=== PATIENT | male | born 1935 | race Caucasian/White ===

== ENCOUNTER 2023-05-16 09:55 | Inpatient (IN) ==
--- NOTE | 2023-05-16 10:51 | XRay Report ---
XR chest 1V portable CLINICAL HISTORY: weakness COMPARISON STUDY: PET/CT August 12, 2021. FINDINGS: Mild elevation of the right hemidiaphragm is unchanged. Upper mediastinal widening is also similar to prior PET/CT and likely due to vessels. There is mild cardiomegaly without evidence for pu lmonary edema. No consolidation is present. There is no pneumothorax or pleural effusion. IMPRESSION: No acute cardiopulmonary findings. ACT 112: Negative or not required by law. Electronically signed by: Elder Cardona M.D. 05/16/2023 10:49 AM
[2023-05-16 11:07] LABS: Basophils # (auto) 0.03 K/uL (0.00-0.20); Basophils % (auto) 0.2 %; Eosinophils # (auto) 0.03 K/uL (0.00-0.50); Eosinophils % (auto) 0.2 %; Hematocrit (blood only) 36.4 % (42.0-52.0); Hemoglobin 12.4 g/dl (14.0-18.0); Immature Granulocytes # (auto) 0.11 K/uL (0.01-0.20); Immature Granulocytes % (auto) 0.8 %; Lymphocytes % (auto) 5.8 %; Mean Corpuscular Hemoglobin 30.1 pg (25.0-34.0); Mean Corpuscular Hgb Conc 34.1 g/dL (32.0-36.0); Mean Corpuscular Volume 88.3 fL (80.0-100.0); Mean Platelet Volume 10.2 fL (9.4-12.4); Monocytes # (auto) 0.78 K/uL (0.11-0.59); Monocytes % (auto) 5.7 %; Neutrophils # (auto) 12.04 K/uL (1.40-6.50); Neutrophils % (auto) 87.3 %; Platelet Count 137 K/uL (130-400); RDW Coefficient of Variation 13.8 % (11.5-14.5); RDW Standard Deviation 44.6 fL (36.4-46.3); Red Blood Count 4.12 M/uL (4.70-6.10); White Blood Count 13.79 K/ul (4.8-10.8)
[2023-05-16 11:14] LABS: Albumin Globulin Ratio 1.4 (0.9-2); Albumin Level 3.8 gm/dl (3.4-5.0); BUN Creatinine Ratio 19.2 (10-20); Bilirubin,Total 0.8 mg/dl (0.2-1.0); Calcium 10.9 mg/dl (8.6-10.3); Creatinine Clr Calc Pharmacy 36.1 ml/min; Est GFR (African American) 45.9 ml/min; Est GFR (Non-African American) 39.6 ml/min; Globulin 2.8 gm/dl (2.5-4.0); Magnesium 1.6 mg/dl (1.7-2.4); Potassium 4.3 mmol/L (3.5-5.1); Total Protein 6.6 gm/dl (6.0-8.3)
[2023-05-16 11:20] LABS: Troponin I High Sensitivity 22.8 pg/ml (0-20)
--- NOTE | 2023-05-16 11:24 | Emergency Department Note ---
Impression & Plan Acute UTI (urinary tract infection), Leukocytosis, Elevated procalcitonin, Elevated troponin, Hypomagnesemia, Generalized weakness ED Provider Note HISTORY OF PRESENT ILLNESS: Patient is an 87-year-old male presenting with dizziness and weakness. Patient reports that 3 days ago he had an episode of dizziness in which he felt like he was going to pass out when he stood up. He had a few episodes of vomiting. Yesterday he was feeling improved, but today he woke up again and felt dizzy and lightheaded like he was going to pass out when he stood up from his bed. He denies any chest pain or shortness of breath with the episodes. He reports feeling generally weak. Denies any abdominal pain. Denies any fevers. Denies any dysuria or hematuria. On my assessment in the ER, he reports he feels normal self and is not currently having any symptoms. Denies any recent falls or head injury. ROS: as above PHYSICAL EXAM: Constitutional: Patient appears in no acute distress. HENT: Head: Normocephalic and atraumatic. Eyes: EOMI, PERRL Mouth/Throat: Mucous membranes moist. Neck: Trachea midline. Neck supple. Cardiovascular: RRR, No murmurs, rubs or gallops. Intact distal pulses. Pulmonary/Chest: No respiratory distress. Breath sounds clear and equal bilaterally. No wheezes or rales. Abdominal: Abdomen soft, no tenderness, rebound or guarding. Musculoskeletal: No edema, tenderness or deformity noted. Skin: Warm and dry. No rash, erythema, pallor or cyanosis Psychiatric: Appropriate mood and affect for situation. Neurological: Alert and keenly responsive. Facies symmetric. Able to raise eyebrows, close eyes, smile, puff mouth, stick out tongue, move tongue left and right and raise palate symmetrically. Able to shrug shoulders. PERRLA. SILT to forehead below eye and at jawline. Can hear soft noise bilaterally. Strength 5/5 in bilateral upper and lower extremities. SILT throughout bilateral upper and lower extremities. MDM: - Vitals signs stable. - History obtained via patient. History as above. - Chronic conditions affecting care: HTN; DM-2; HLD; CAD; BPH; CKD - Differential diagnoses include, but are not limited to: CVA; intracranial hemorrhage; pneumonia; UTI; ACS; electrolyte abnormality - Order placed for continuous cardiac monitoring. At this time, monitor showed rate of 62 bpm with normal sinus rhythm, per my interpretation. - External medical records reviewed. Showed [EMS sheet, outpt notes, outpt imaging] - EKG interpreted by myself showed normal sinus rhythm. Rate 68 bpm. QT 370. No acute ischemic changes. - Laboratory workup interpreted by myself showed leukocytosis (WBC 13.79) with left shift; normal lactate; slight hyponatremia (Na 135); hypomagnesemia (Mg 1.6); CKD (Cr 1.56); elevated troponin (22.8 --> 19.9); normal TSH - CXR negative for pneumonia, per my interpretation - CT head wo contrast negative for acute intracranial pathology. - UA showed evidence of infection. - Given leukocytosis, patient's symptoms and UTI, blood cultures and procalcitonin were added to workup. - Procalcitonin elevated at 3.41 - Patient given 1g IV magnesium for electrolyte replacement. - Patient given 2g IV rocephin for UTI treatment. Added vancomycin given elevated procalcitonin and patient's SIRS criteria. Ordered 2100 mL NS for fluid resuscitation, as patient's sepsis fluid volume based on ideal body weight is 2100 mL. - Discussion was had with case packer and sealer about patient's case and need for admission - Hospitalist consulted for admission [facility] ASSESSMENT AND PLAN: Diagnosis: acute UTI; generalized weakness; leukocytosis; elevated procalcitonin; hypomagnesemia; elevated troponin Plan: admit Past Med/Surg History Medical History (Updated 05/16/23 @ 14:04 by Stephenie Blackwell MD) Primary squamous cell carcinoma of skin Hx of sigmoidoscopy Nephritis and nephropathy Hypertrophy of prostate Benign neoplasm of colon Osteoarthritis CKD (chronic kidney disease) stage 3, GFR 30-59 ml/min BPH with obstruction/lower urinary tract symptoms Coronary artery disease Dyslipidemia Type 2 diabetes mellitus with chronic kidney disease Type 2 diabetes mellitus Myocardial infarction Hypertension Surgical History (Updated 10/10/21 @ 10:51 by Mary Chatman RN) H/O umbilical hernia repair Hx of colonoscopy w/lesion removal, snare adenomatous polyp S/P cholecystectomy Family History (Updated 10/10/21 @ 10:10 by Mary Chatman RN) Son Cancer colon Social History (Updated 10/10/21 @ 10:13 by Mary Chatman RN) Smoking Status: Never smoker Tobacco Type: Cigarettes Second Hand Exposure: No; Do You Dip or Chew Tobacco: No; Hx Alcohol Use: No Hx Substance Use: No Preferred Language: Israeli Communication Ability: Effective Visual Impairment: No Limitations Hearing Ability: Normal Manager Medical Required: No Beliefs That Will Affect Care: None marital status: Current Living Situation: Spouse current occupational status: retired Feels Safe at Home: Yes Childhood Exposure to Second-Hand Smoke: No Diet: regular caffeine: Yes (coffee) during the past year weight has: remained stable Assistive Devices: Cane and Glasses Allergies Allergies Allergy/AdvReac Type Severity Reaction Status Date / Time liraglutide [From Victoza] Allergy Insomnia Verified 05/16/23 12:12 Home Meds Home Medications Medication Instructions Recorded Confirmed aspirin 81 mg tablet,delayed 81 mg PO DAILY 10/10/21 05/16/23 release (Enteric Coated Aspirin) atorvastatin 40 mg tablet 40 mg PO DAILY 10/10/21 05/16/23 calcium 600 mg-D3 800 unit-mag11 1 tab PO DAILY 10/10/21 05/16/23 50 [id number]-ldryxq-kareem-s.borat tablet (Caltrate 600-D Plus Minerals) furosemide 20 mg tablet (Lasix) 20 mg PO DAILY 10/10/21 05/16/23 lisinopril 5 mg tablet 5 mg PO DAILY 10/10/21 05/16/23 metoprolol tartrate 25 mg tablet 25 mg PO DAILY 10/10/21 05/16/23 [id number]-[id number] C-Mn 500 1 cap PO BID 11/11/21 05/16/23 mg-400 mg capsule (Glucosamine-Chondroitin Complex) finasteride 5 mg tablet 5 mg PO DAILY 05/16/23 05/16/23 Results & Data (ED) Vital Signs Vital Signs - 24 hr 05/16/23 10:01 05/16/23 10:22 05/16/23 13:00 Temperature 37.0 C Temperature Source Oral Pulse Rate 82 68 Pulse Rate [Left Finger] 62 Respiratory Rate 20 18 Respiratory Effort / Characteristics Non-Labored Respiratory Depth Normal Blood Pressure 112/62 Blood Pressure [Left Arm] 116/80 Blood Pressure Mean 78 Blood Pressure Mean [Left Arm] 92 Blood Pressure Position [Left Arm] Sitting Pulse Oximetry 93 94 Oxygen Delivery Method Room Air Sepsis Recent Fever Within 48 Hours No Sepsis New/Unexplained Change in Mental Status N/A Sepsis Action Taken by Nursing No Action Required 05/16/23 14:20 Temperature Temperature Source Pulse Rate Pulse Rate [Left Finger] 65 Respiratory Rate 20 Respiratory Effort / Characteristics Respiratory Depth Blood Pressure Blood Pressure [Left Arm] 141/107 H Blood Pressure Mean Blood Pressure Mean [Left Arm] 118 Blood Pressure Position [Left Arm] Pulse Oximetry 95 Oxygen Delivery Method Sepsis Recent Fever Within 48 Hours Sepsis New/Unexplained Change in Mental Status Sepsis Action Taken by Nursing Laboratory Data 05/16/23 10:24 05/16/23 10:24 Lab Results 05/16/23 05/16/23 05/16/23 Range/Units 10:24 10:45 11:08 WBC 13.79 H (4.8-10.8) K/ul RBC 4.12 L (4.70-6.10) M/uL Hgb 12.4 L (14.0-18.0) g/dl Hct 36.4 L (42.0-52.0) % MCV 88.3 (80.0-100.0) fL MCH 30.1 (25.0-34.0) pg MCHC 34.1 (32.0-36.0) g/dL RDW Std Deviation 44.6 (36.4-46.3) fL RDW Coeff of Aristides 13.8 (11.5-14.5) % Plt Count 137 (130-400) K/uL MPV 10.2 (9.4-12.4) fL Immature Gran % (Auto) 0.8 % Neut % (Auto) 87.3 % Lymph % (Auto) 5.8 % [place] % (Auto) 5.7 % Eos % (Auto) 0.2 % Baso % (Auto) 0.2 % Neut # (Auto) 12.04 H (1.40-6.50) K/uL Lymph # (Auto) 0.80 L (1.20-3.40) K/uL [place] # (Auto) 0.78 H (0.11-0.59) K/uL Eos # (Auto) 0.03 (0.00-0.50) K/uL Baso # (Auto) 0.03 (0.00-0.20) K/uL Immature Gran # (Auto) 0.11 (0.01-0.20) K/uL Sodium 135 L (136-145) mmol/L Potassium 4.3 (3.5-5.1) mmol/L Chloride 105 (98-107) mmol/L Carbon Dioxide 24 (21-32) mmol/L Anion Gap 6 (3-11) BUN 30 H (6-23) mg/dl Creatinine 1.56 H (0.6-1.4) mg/dl Est Cr Clr Drug Dosing 36.1 ml/min Est GFR ( Amer) 45.9 ml/min Est GFR (Non-Af Amer) 39.6 ml/min BUN/Creatinine Ratio 19.2 (10-20) Glucose 194 H (70-99(Fasting)) mg/dl Lactate 1.0 (0.4-2.0) mmol/L Calcium 10.9 H (8.6-10.3) mg/dl Magnesium 1.6 L (1.7-2.4) mg/dl Total Bilirubin 0.8 (0.2-1.0) mg/dl AST 17 (13-39) U/L ALT 12 (7-52) U/L Alkaline Phosphatase 74 (34-104) U/L Troponin I High Sens 22.8 H (0-20) pg/ml Total Protein 6.6 (6.0-8.3) gm/dl Albumin 3.8 (3.4-5.0) gm/dl Globulin 2.8 (2.5-4.0) gm/dl Albumin/Globulin Ratio 1.4 (0.9-2) Procalcitonin 3.41 H (0-0.5) ng/ml TSH 3.109 (0.300-4.500) uIu/ml Urine Color Urine Appearance (Clear) Urine pH (4.5-7.5) Ur Specific [place] (1.000-1.030) Urine Protein (Negative) Urine Glucose (UA) (Negative) Urine Ketones (Negative) Urine Blood (Negative) Urine Nitrite (Negative) Urine Bilirubin (Negative) Urine Urobilinogen (Negative) Ur Leukocyte Esterase (Negative) Urine WBC (Auto) (0-5) /hpf Urine RBC (Auto) (0-4) /hpf U Hyaline Cast (Auto) (0-5) /lpf U Epithel Cells (Auto) (0-5) /lpf Urine Bacteria (Auto) (Negative) Ur Renal Epithelial Cell (0-5) /lpf Urine Yeast SARS-CoV-2 (PCR) NEGATIVE (Negative) Influenza Type A (PCR) Negative (Neg) Influenza Type B (PCR) Negative (Neg) RSV (RT-PCR) Negative (Neg) 05/16/23 05/16/23 Range/Units 12:17 12:32 WBC (4.8-10.8) K/ul RBC (4.70-6.10) M/uL Hgb (14.0-18.0) g/dl Hct (42.0-52.0) % MCV (80.0-100.0) fL MCH (25.0-34.0) pg MCHC (32.0-36.0) g/dL RDW Std Deviation (36.4-46.3) fL RDW Coeff of Aristides (11.5-14.5) % Plt Count (130-400) K/uL MPV (9.4-12.4) fL Immature Gran % (Auto) % Neut % (Auto) % Lymph % (Auto) % [place] % (Auto) % Eos % (Auto) % Baso % (Auto) % Neut # (Auto) (1.40-6.50) K/uL Lymph # (Auto) (1.20-3.40) K/uL [place] # (Auto) (0.11-0.59) K/uL Eos # (Auto) (0.00-0.50) K/uL Baso # (Auto) (0.00-0.20) K/uL Immature Gran # (Auto) (0.01-0.20) K/uL Sodium (136-145) mmol/L Potassium (3.5-5.1) mmol/L Chloride (98-107) mmol/L Carbon Dioxide (21-32) mmol/L Anion Gap (3-11) BUN (6-23) mg/dl Creatinine (0.6-1.4) mg/dl Est Cr Clr Drug Dosing ml/min Est GFR ( Amer) ml/min Est GFR (Non-Af Amer) ml/min BUN/Creatinine Ratio (10-20) Glucose (70-99(Fasting)) mg/dl Lactate (0.4-2.0) mmol/L Calcium (8.6-10.3) mg/dl Magnesium (1.7-2.4) mg/dl Total Bilirubin (0.2-1.0) mg/dl AST (13-39) U/L ALT (7-52) U/L Alkaline Phosphatase (34-104) U/L Troponin I High Sens 19.9 (0-20) pg/ml Total Protein (6.0-8.3) gm/dl Albumin (3.4-5.0) gm/dl Globulin (2.5-4.0) gm/dl Albumin/Globulin Ratio (0.9-2) Procalcitonin (0-0.5) ng/ml TSH (0.300-4.500) uIu/ml Urine Color Yellow Urine Appearance Turbid A (Clear) Urine pH 5.0 (4.5-7.5) Ur Specific [place] 1.009 (1.000-1.030) Urine Protein 1+ H (Negative) Urine Glucose (UA) Negative (Negative) Urine Ketones Negative (Negative) Urine Blood 3+ H (Negative) Urine Nitrite Positive A (Negative) Urine Bilirubin Negative (Negative) Urine Urobilinogen Negative (Negative) Ur Leukocyte Esterase 3+ H (Negative) Urine WBC (Auto) >30 H (0-5) /hpf Urine RBC (Auto) 10-30 H (0-4) /hpf U Hyaline Cast (Auto) 1-5 (0-5) /lpf U Epithel Cells (Auto) 5-10 H (0-5) /lpf Urine Bacteria (Auto) 3+ H (Negative) Ur Renal Epithelial Cell 0-5 (0-5) /lpf Urine Yeast Not Reportable SARS-CoV-2 (PCR) (Negative) Influenza Type A (PCR) (Neg) Influenza Type B (PCR) (Neg) RSV (RT-PCR) (Neg) Administered Medications Sodium Chloride (Nss) 2,100 mls @ 999 mls/hr IV .[id number] ONE Stop: 05/16/23 16:03 Last Admin: 05/16/23 14:19 Dose: 999 mls/hr Documented By: MASSIMO Magnesium Sulfate/Dextrose (Magnesium Sulfate / D5w) 1 gm in 100 mls @ 100 mls/hr IV NOW STA Stop: 05/16/23 15:02 Last Admin: 05/16/23 14:28 Dose: 100 mls/hr Documented By: MASSIMO Discontinued Medications Ceftriaxone Sodium (Rocephin) 2,000 mg in 50 mls @ 100 mls/hr IV NOW STA Stop: 05/16/23 13:48 Last Admin: 05/16/23 13:31 Dose: 100 mls/hr Documented By: MASSIMO Imaging Data Radiologist's Impression: Chest X-Ray 05/16/23 10:35 XR chest 1V portable CLINICAL HISTORY: weakness COMPARISON STUDY: PET/CT August 12, 2021. FINDINGS: Mild elevation of the right hemidiaphragm is unchanged. Upper mediastinal widening is also similar to prior PET/CT and likely due to vessels. There is mild cardiomegaly without evidence for pulmonary edema. No consolidation is present. There is no pneumothorax or pleural effusion. IMPRESSION: No acute cardiopulmonary findings. ACT 112: Negative or not required by law. Electronically signed by: Elder Cardona M.D. 05/16/2023 10:[address] 05/16/23 11:21 CT OF THE HEAD WITHOUT CONTRAST CLINICAL HISTORY: dizziness; weakness COMPARISON STUDY: Head CT July 10, 2021. CT DOSE: 547.75 mGy.cm TECHNIQUE: Helical axial images of the head were obtained without IV contrast. Automated exposure control was utilized for the study. A dose lowering technique was utilized adhering to the principles of ALARA. FINDINGS: No acute intracranial hemorrhage, midline shift or mass effect is present. Ventricular system is unremarkable. Basal cisterns are patent. There are no extra-axial collections. White matter hypodensity suggests small vessel disease. There are no findings to suggest acute dural sinus thrombosis or acute territorial infarct. There are no significant calvarial abnormalities. IMPRESSION: No acute intracranial findings. ACT 112: Negative or not required by law. Electronically signed by: Elder Cardona M.D. 05/16/2023 12:03 PM Discharge Plan Visit Data Chief Complaint: Weakness Stated Complaint: WEAKNESS, VOMITING ED Provider: Stephenie Blackwell Discharge Problem: Acute UTI (urinary tract infection), Leukocytosis, Elevated procalcitonin, Elevated troponin, Hypomagnesemia, Generalized weakness Forms Stand Alone Forms: My [facility] [place] [employer] Prescriptions Prescriptions: No Action aspirin [Enteric Coated Aspirin] 81 mg tablet,delayed release (DR/EC) 81 mg PO DAILY atorvastatin 40 mg tablet 40 mg PO DAILY Caltrate 600-D Plus Minerals 600 mg calcium- 800 unit-50 mg tablet 1 tab PO DAILY furosemide [Lasix] 20 mg tablet 20 mg PO DAILY lisinopril 5 mg tablet 5 mg PO DAILY metoprolol tartrate 25 mg tablet 25 mg PO DAILY [id number] C-Mn [Glucosamine-Chondroitin Complx] 500-400 mg capsule 1 cap PO BID finasteride 5 mg tablet 5 mg PO DAILY Referrals Referrals: Lindsey Cedeño MD [Primary Care Provider] -
[2023-05-16 11:29] LABS: Thyroid Stimulating Hormone 3.109 uIu/ml (0.300-4.500)
[2023-05-16 11:40] LABS: Influenza A virus by PCR Negative (Neg); Influenza B virus by PCR Negative (Neg); RSV by PCR Negative (Neg); SARS CoV2 RNA(COVID-19) Ceph NEGATIVE (Negative)
--- NOTE | 2023-05-16 12:04 | CT Scan Report ---
CT OF THE HEAD WITHOUT CONTRAST CLINICAL HISTORY: dizziness; weakness COMPARISON STUDY: Head CT July 10, 2021. CT DOSE: 547.75 mGy.cm TECHNIQUE: Helical axial images of the head were obtained without IV contrast. Automated exposure con trol was utilized for the study. A dose lowering technique was utilized adhering to the principles o f ALARA. FINDINGS: No acute intracranial hemorrhage, midline shift or mass effect is present. Ventricular syst em is unremarkable. Basal cisterns are patent. There are no extra-axial collections. White matter hyp odensity suggests small vessel disease. There are no findings to suggest acute dural sinus thrombosis or acute territorial infarct. There are no significant calvarial abnormalities. IMPRESSION: No acute intracranial findings. ACT 112: Negative or not required by law. Electronically signed by: Elder Cardona M.D. 05/16/2023 12:03 PM
[2023-05-16 12:53] LABS: Appearance Urine Turbid (Clear); Bacteria Urine Automated 3+ (Negative); Bilirubin Urine Negative (Negative); Blood Urine 3+ (Negative); Color Urine Yellow; Glucose Urine UA Negative (Negative); Ketones Urine Negative (Negative); Leukocyte Esterase Urine 3+ (Negative); Nitrite Urine Positive (Negative); Protein Urine 1+ (Negative); Specific Gravity Urine 1.009 (1.000-1.030); Urobilinogen Urine Negative (Negative); WBC Urine Automated >30 /hpf (0-5)
--- OUTSIDE RECORDS SUMMARY | 2023-05-16 12:58 | External Medical Summary | Summary of Care ---
Author Name Unknown Organization [facility] Address [address] [address] Phone [phone] Care Team Providers Care Cnc Machinist 2Nd Shift Name Role Phone Lindsey Terrell MD Primary Care Prov ider Reason for Visit * Reason Comments Follow Up Pt here for 6 month f/u for full skin exam. Hx of non-melanoma skin cancer. No concerns. Encounter Details Date Type Department Care Team (Late st Contact Info) Description 05/06/2023 3:00 PM EDT Office Visit Dermatology [address] [place] [address] Ghazala Ramon PA-C [address] [place] [address] [place] [address] History of nonmelanoma skin cancer*; Scar; Seborrheic keratosis; Skin exam, screening for cancer; Lentigines; Multiple nevi; Neoplasm of uncertain behavior of skin Allergies Active Allergy Reactions Criticality Noted Date Comments Liraglutide Nausea/vomiting 06/01/2018 documented as of this encounter (statuses as of 05/06/2023) Medications Medication Sig Dispensed Refills Start Date End Date Status aspirin enteric coated 81 MG TBECIndications:Co ronary artery disease involving [place]-apache coronary artery of [place]-apache heart without angina pectoris Take 1 Tablet by mouth in the morning. 100 Tab 3 01/05/2018 Active Caltrate 600+D Plus Minerals 600-800 MG-UNIT Oral Tablet Chewable Take 1 Tab by mouth daily. 0 Active Furosemide 20 MG Oral Tablet (Lasix)Indications :Type 2 diabetes mellitus with stage 3 chronic kidney disease, without long-term current use of insulin (HCC) TAKE 1 TABLET BY MOUTH DAILY 90 Tablet 3 02/21/2022 Active Meclizine HCl 25 MG Oral Tablet (Antivert)Indicati ons:Benign paroxysmal positional vertigo due to bilateral vestibular disorder Take 1 Tablet by mouth 3 times a day as needed for Dizziness. 30 Tablet 1 07/10/2022 Active Additional Information Patient not taking.Reported on 01/28/2023 Metoprolol Tartrate 25 MG Oral Tablet (Lopressor)Indicat ions:Coronary artery disease involving [place]-apache coronary artery of [place]-apache heart without angina pectoris Take 1 Tablet by mouth daily. 90 Tablet 1 09/16/2022 Active Vitamin D3 25 MCG (1000 UT) Oral Tablet (Vitamin D3) Take 1 Tablet by mouth in the morning. 0 10/21/2022 Active Finasteride 5 MG Oral Tablet (Proscar)Indicatio ns:BPH without obstruction/lower urinary tract symptoms Take 1 Tablet by mouth in the morning. 100 Tablet 1 03/16/2023 Active Atorvastatin Calcium 40 MG Oral Tablet (Lipitor)Indicatio ns:Coronary artery disease involving [place]-apache coronary artery of [place] heart without angina pectoris,Dyslipide dieter, goal LDL below 100 Take 1 Tablet by mouth daily. 100 Tablet 1 03/30/2023 Active Lisinopril 5 MG Oral Tablet (Prinivil) Take 1 Tablet by mouth in the morning. 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 01/28/2023 Hypertension goal BP (blood pressure) < 130/80 1 03/31/2022 Renal osteodystrophy 01/28/2023 Old myocardial infarct 07/10/2022 Iron deficiency anemia 10/11/2021 Hx of nonmelanoma skin cancer 04/23/2021 Overview: Carcinoma with basaloid and clear cell features and perineural invasion (R superior helix 04/16), basal cell carcinoma (L infraorbital region 04/17) Type 2 diabetes mellitus wit h stage 3b chronic kidney disease, without long-term current use of insulin 04/12/2021 Chronic kidney disease, stage 3b 08/07/2020 Overview: Per CKD protocol Aortic valve sclerosis 01/05/2018 Overview: Moderate on echo 2017 History of adenomatous polyp of colon 01/05/2018 Overview: On colonoscopy 2006 Localized edema 01/05/2018 Primary osteoarthritis of both knees 12/25/2016 BMI 34.0-34.9,adult 06/19/2016 Overview: 228 lb Coronary artery disease invo lving [place]apai-apache coronary artery without angina pectoris 11/15/2014 Overview: H/o [place] medically managed 1997. Generalized OA 01/10/2013 ADVANCE DIRECTIVE INFORMATION 05/10/2010 Overview: No, Advance Directive brochure given to patient. Dyslipidemia, goal LDL below 100 01/30/2009 Overview: Per Lipid Taxonomy. Type 2 diabetes mellitus wit h hemoglobin A1c goal of less than 7.0% 12/21/2008 Overview: Per Diabetes Taxonomy. ICD-10 update of inactive term BPH without obstruction/lower urinary tract symp toms 12/11/2005 documented as of this encounter (statuses as of 05/06/2023) Resolved Problems Problem Noted Date Diagnosed Date Resolved Date Type 2 diabetes mellitus wit h stage 3b chronic kidney disease, without long-term current use of insulin 09/06/2020 10/09/2020 Type 2 diabetes mellitus wit h stage 3b chronic kidney disease 07/03/2020 04/02/2022 Overview: Per CKD protocol Diabetes mellitus with stage 3 chronic kidney disease 01/02/2020 07/05/2020 Overview: Per CKD protocol DM type 2 causing CKD stage 3 02/24/2019 01/05/2020 Overview: Per CKD protocol BMI 32.0-32.9,adult 12/13/2015 06/20/19 17 Overview: 215 lbs CKD (chronic kidney disease) stage 3, GFR 30-59 ml/min 01/09/2014 06/05/2017 Overview: GFR 52.1 DM type 2 causing renal disease 12/21/2008 05/01/2009 Overview: Per Diabetes Taxonomy. Nephritis and nephropathy, n ot specified as acute or chronic, with other specified pathological lesion in kidney, in diseases classified elsewhere 06/21/2007 10/18/2015 Benign neoplasm of colon 11/23/200603/2016 Overview: adenomatous polyp--repeat 5 years DIAB RENAL MANIF ADULT 12/11/200512/21 Overview: Per Diabetes Taxonomy. Coronary artery disease with out angina pectoris 11/15/2014 Type 2 diabetes mellitus wit h hemoglobin A1c goal of less than 7.0% 12/21/2008 Overview: Per Diabetes Taxonomy. ICD-10 update of inactive term Dyslipidemia, goal to be determined 01/30/2009 Overview: Per Lipid Taxonomy. Chronic ischemic heart disease 01/16/2014 BMI 30.0-30.9,adult 12/13/19 16 Coronary atherosclerosis of [place]-apache coronary artery 11/15/2014 Osteoarthritis of knees, bilateral 12/25/2016 documented as of this encounter (statuses as of 05/06/2023) Immunizations Name Administration Dates Next Due COVID-19 mRNA, LNP-s, No Pre serve, 2-Dose Series (Moderna) 05/25/2020,04/27/2020 COVID-19, LNP-s, No Preserve , Don-sucrose, Ages 12+ (Pfizer) 10/15/2021 COVID-19, MRNA-LNP, 23-24, P F, 30 MCG/0.3 mL, 12 YRS AND ABOVE, IM (PFIZER-Comirnaty) 01/28/2023 COVID-19, mRNA, LNP-s, PF, B ooster, 100mcg/0.5mg (Moderna) 02/12/2021 Covid-19, Mrna, Lnp-s, Pf, B ivalent, 30 Mcg, IM, 12 yrs and above (Pfizer) 04/17/2022 Pneumococcal Conjugate Vacc, 13 Valent (Prevnar) 07/18/2014 Pneumococcal Polysaccharide PPV23 (Pneumovax) 09/01/2018 Seasonal Influenza, PF, 6 M & above, IM , (FluLaval or Fluzone) 12/25/2019,11/19/2017,12/25/2016 Seasonal Influenza, Quadriva lent Hd (Fluzone Hd) 01/28/2023,02/05/2022,01/24/2021 Seasonal Influenza, Quadriva lent, No Preserve, IM 12/13/2015,02/06/2015 Seasonal Influenza, Split, I IV3, With Preserve, Inj 01/16/2014,01/10/2013,03/22/2012,03/10,12/21/2008 Seasonal Influenza, Trivalen t, Adjuvanted, 65+ yrs 01/13/2019 TD - Tetanus/Diptheria (ADULT) 02/23/1999 documented as of this encounter Social History Tobacco Use Types Packs/Day Years Used Date Smoking Tobacco: Former Cigarettes 1 0 02/23/1959 - 02/24/1960 Smokeless Tobacco: Never Alcohol Use Standard Drinks/Week Comments No 0 (1 standard drink = 0.6 oz pur e alcohol) PHQ-2 Answer Date Recorded PHQ Adult Total Score 0 10/06/2022 Hunger Vital Sign Answer Date Recorded Within the past 12 months, y ou worried that your food would run out before you got the money to buy more. Never true 10/07/19 23 Within the past 12 months, t he food you bought just didn't last and you didn't have money to get more. Never true 10/06/2022 Sex and Gender Information Value Date Recorded Sex Assigned at Male 09/13/2020 11:04 AM EDT Gender Identity Male 09/13/2020 11:04 AM EDT Sexual Orientation Straight 09/13/2020 11 :04 AM EDT Job Start Date Occupation Industry Not on file Not on file Not on file documented as of this encounter Patient Instructions * Patient Instructions* Ghazala Ramon PA-C - 05/06/2023 3:03 PM EDT SUNSCREEN USE AND SUN PROTECTION: 1. The best protection is sun avoidance. Seek shade if you can, especially between 10am to 4pm (peak sun hours). 2. Use sunscreen with an SPF (Sun Protection Factor - the number on most sunscreen bottles) of 30 or more that protects from Ultraviolet A (UVA) and Ultraviolet B (UVB) wavelength light (strongly recommend SPF 50). This is referred to as broad spectrum sun protection because it protects from most wa velengths in both spectrums of UVA and UVB light. Unfortunately, even though the protection is broad it is not complete, therefore making sun avoidance the best protection. UVB and UVA have both beenimplicated in causing skin cancers. Older sunscreens only protected from UVB and sunscreens with added UVA protection should contain Titanium dioxide, Zinc oxide, or Avobenzone. Other oil free, non-comedogenic lotion with SPF 30 or greater is fine. 3. Use sun protection if outside for 15 minutes or more. Apply 20-30 minutes before going out and reapply every 1-2 hours. No sunscreen is truly water ''proof'' and it will wash away with sweat, swimming and rubbing. 4. Wear tightly woven, loose fitting (cooler) long sleeved clothing, UV-blocking sun glasses (eyes need protection as well) and wide-brimmed hatwear (no straw hats with holes because light still getsthrough). Strongly recommended *Neutrogena Pure and Free Baby SPF 60 (have separate face and body lotions) orCeraVe AM facial lotion (with SPF 30). If looking for non toxic alternatives-look for non-jacqueline particle zinc. Product examples; Think sport, Think baby, Travis, Babo botanicals, [employer], [place] baby. "Baby" products can be used for all ages. documented in this encounter Progress Notes * Ghazala Ramon PA-C - 05/06/2023 3:00 PM EDT SUBJECTIVE: History of Present Illness: Aquilino Rashid is a 87 year old male seen today for follow up of full skin exam/invasive SCC hx. Previous office visit: 11/05/2022 Last attempted treatments include: cryo to AKs No new or changing lesions, per pt. 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 REVIEW OF SYSTEMS: SKIN: No other new or changing moles. HEME/LYMPH: No new or enlarging lumps or bumps. CONSTITUTIONAL: No nausea, vomiting, fevers, chills, diarrhea. No recent unintended weight loss, night sweats, appetite or malaise. 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 MEDICA TIONS: Current Outpatient Medications Medication Sig Dispense Refill aspirin enteric coated 81 MG TBEC Take 1 Tablet by mouth in the morning. 100 Tab 3 Caltrate 600+D Plus Minerals 600-800 MG-UNIT Oral Tablet Chewable Take 1 Tab by mouth daily. Furosemide 20 MG Oral Tablet (Lasix) TAKE 1 TABLET BY MOUTH DAILY 90 Tablet 3 Metoprolol Tartrate 25 MG Oral Tablet (Lopressor) Take 1 Tablet by mouth daily. 90 Tablet 1 Vitamin D3 25 MCG (1000 UT) Oral Tablet (Vitamin D3) Take 1 Tablet by mouth in the morning. Finasteride 5 MG Oral Tablet (Proscar) Take 1 Tablet by mouth in the morning. 100 Tablet 1 Atorvastatin Calcium 40 MG Oral Tablet (Lipitor) Take 1 Tablet by mouth daily. 100 Tablet 1 Lisinopril 5 MG Oral Tablet (Prinivil) Take 1 Tablet by mouth in the morning. 90 Tablet 3 Meclizine HCl 25 MG Oral Tablet (Antivert) Take 1 Tablet by mouth 3 times a day as needed for Dizziness. (Patient not taking: Reported on 01/28/2023) 30 Tablet 1 No current facility-administered medications for this visit. ALLERGIES: Victoza [liraglutide] OBJECT MOI: GEN: alert, no distress, appears oriented, elderly, pleasant and cooperative. SKIN: Detailed exam of hair, face including lids and lips, oral cavity, neck, chest, abdomen, back,bilateral upper ext. (arm, hand, fingers), bilateral lower ext. (leg, foot, toes), palpation of scalp, fingernails, toenails, inguinal areas, groin (penis, scrotum and perineum), buttocks and anus completed: No bilat pre or post auricular, no bilat anterior or posterior cervical chain, no submental, no bilat supraclavicular, no bilat axillary, no bilat antecubital, no bilat inguinal, no bilat popliteal fossae lymphadenopathy. No hepatosplenomegaly. 1A. L upper arm-2x2mm pink-red soft slightly compressible papule. 2. L infraorbital region-Thin white atrophic scar. 3. R superior helix-post inflammatory erythematous shiny flattened cartilage with ill defined erythematous scar. 4. Face (temples)/neck/trunk/bilat arms-Few sharply defined, variegated brown, waxy flat papules with velvety to finely verrucous surfaces. 5. Trunk/bilat arms and legs-Few 2-4mm light and light-medium brown macules and soft papules. 6. Face/neck/trunk/bilat arms and legs-Some well defined light to medium brown homogenous stellate macules. ASSESS MENT/PLAN: 1A. Angioma vs inflamed SK vs BCC on L upper arm-Pt declined bx at this time and will watch lesion and let me know if it changes prior to next appointment. 2. Scar s/p basal cell carcinoma on L infraorbital region-No sign of recurrence. 3. Scar/flap s/p favored moderately differentiated squamous cell carcinoma of right superior helix (carcinoma with basaloid and clear-cell features and perineural invasion on R superior helix 04/16- No sign of recurrence. - Exam and lymph node exam unremarkable - Will continue to plan on follow up skin check every 6-12 mo for the next 3 years, then at least annually for life 4. Seborrheic/Benign Keratosis(-es) on back-no tx needed, pt given reassurance. 5. Nevi on trunk/bilat arms and legs-no tx needed, pt given reassurance and written education aboutdiagnosis. Skin cancer brochure given at previous office visit (pt declined need for another) and ABCDE's discussed with patient. Annual full body skin examination (unless I recommended otherwise), self-examination, and sun protection (SPF 30+ daily to sun exposed areas, with reapplication every 1-2 hours when out in sun for long periods of time) advised and discussed. Recommended sooner follow up for new or changing lesions. These changes include rapid enlargement, changes in color or shape or symptoms, bleeding, or other concerns. The common features and behavior of non-melanoma skin cancers (e.g. BCC/SCC) as well as the ABCDEs and ugly duckling features of melanoma were also reviewed. 6. Lentigines on face/neck/trunk/bilat arms and legs-no tx needed, pt given reassurance. Patient alone today. Photo(s) of #1-6 taken, pt verbally consented to having photo(s) taken. Follow-up: 6-12 months for full skin exam/invasive skin cancer Applicable photos (if any) and chart reviewed by Dr. Sen Chun. Presumed diagnoses, expected natural histories, and management options discussed with the patient at length. Questions were addressed and anticipatory guidance provided. They were instructed to contact me if additional questions, concerns, or problems develop in the interim. -There were no barriers to learning and no other pain was related to today's visit. The patient and/or person accompanying patient demonstrates understanding of the visit and treatment. Ghazala Ramon PA-C 05/06/2023 3:14 PM Dermatology [address] [place] [id number] documented in this encounter Nursing Notes * Shefali Gray LPN - 05/06/2023 2:57 PM EDT Patient identified by full name and date of Chief Complaint Patient presents with Follow Up Pt here for 6 month f/u for full skin exam. Hx of non-melanoma skin cancer. No concerns. documented in this encounter Plan of Treatment Upcoming Encounters Date Type Department Care Team (Late st Contact Info) Description 05/26/2023 1:30 PM EDT Office Visit Interventional [facility], [facility] [address] [place] [address] Alen Thomas Jorje, [address] [place] [phone] 08/12/2023 1:40 PM EDT Office Visit Family Medicine [address] [place] [phone] Lindsey Terrell MD [address] [place] [address] [place] [address] 10/08/2023 10:00 AM EDT Nurse Only Ancillary [address] [place] [address] [place], Nurse Annual Wellness [address] [place] [address] [place] [address] 03/23/2024 2:20 PM EST Office Visit Dermatology [address] [place] [address] Ghazala Ramon, OBE[place]-C [address] [place] [address] [place] [address] Health Maintenance Due Date Last Done Comments Diabetic Foot Exam 04/15/2023 04/15/2022, 0 04/12/2021, 03/07/2020, Additional history exists CKD HGB USE SMARTSET 42311 07/09/202307/08, 09/17/2021, 08/06/2020, Additional history exists CKD PHOS USE SMARTSET 06397 07/09/202306/23, 09/17/2021, 08/06/2020, Additional history exists Diabetic Eye Exam 07/26/2023 07/25/2022, , 11/26/2020, Additional history exists HbA1c 07/30/2023 01/28/2023, 06/23, 09/17/2021, Additional history exists Depression Screening 10/07/2023 10/06/2022 Albumin/Creatinine Ratio 10/22/2023 023, 09/17/2021, 08/06/2020, Additional history exists DTaP,Tdap,and Td Vaccines (2 - Td or Tdap) 03/07/2030 03/07/2020 (Declined), 02/23/1999 COLONOSCOPY-EVERY 5 YRS AGES 18-100 Discontinued 12/09/2011, 12/09/2011, 11/23/2006 Pneumococcal Vaccine: 65+ Years Completed 09/01/2018, 07/18/2014, 04/25/2002 COVID-19 Vaccine Completed 01/28/2023, , 10/15/2021, Additional history exists Influenza Vaccine (FLU shot) Completed 01/28/2023, 02/05/2022, 01/24/2021, Additional history exists GARDASIL-HPV IMMUNIZATION SERIES Aged Out No longer eligible based on patient's age to complete this topic Hepatitis B Aged Out No longer eligi ble based on patient's age to complete this topic MENINGOCOCCAL (MENACTRA/MENVEO) Aged Out No longer eligible based on patient's age to complete this topic Zoster Vaccines Discontinued documented as of this encounter Medical Devices Not on filedocumented as of this encounter Procedures Procedure Name Priority Date/Time Associated Diagnosis Comments DERM IMAGE (SITE) Routine 05/06/2023 History of nonmelanoma skin cancer Scar Seborrheic keratosis Skin exam, screening for cancer Lentigines Multiple nevi Neoplasm of uncertain behavior of skin documented in this encounter Results * DERM IMAGE (SITE) (05/06/2023) 05/06/2023 Ghazala Ramon PA-C DIGITAL PHOTOG TAYO documented in this encounter Visit Diagnoses Diagnosis History of nonmelanoma skin cancer- Primary Personal history of other malignant neoplasm of skin Scar Scar condition and fibrosis of skin Seborrheic keratosis Other seborrheic keratosis Skin exam, screening for cancer Screening for malignant neoplasm of the skin Lentigines Other dyschromia Multiple nevi Benign neoplasm of skin, site unspecified Neoplasm of uncertain behavior of skin documented in this encounter Care Teams Cnc Machinist 2Nd Shift Relationship Specialty Start Date End Date Lindsey Terrell MD [address] [place] [address] [place] [phone] PCP - General Family Medicine 11/24/17 documented as of this encounter
--- OUTSIDE RECORDS SUMMARY | 2023-05-16 12:58 | External Medical Summary | Summary of Care ---
Author Name Unknown Organization [facility] Address [address] [place] [address] Phone [phone] Care Team Providers Care Supervisor Drying And Winding Name Role Phone Lindsey Terrell MD Primary Care Prov ider Reason for Visit * Reason Onset Date Comments Health Maintenance 04/21/2023 Encounter Details Date Type Department Care Team (Late st Contact Info) Description 04/21/2023 Telephone Family Medicine [address] [phone] Lindsey Terrell MD [address] [place] [address] Health Maintenance Allergies Active Allergy Reactions Criticality Noted Date Comments Liraglutide Nausea/vomiting 06/01/2018 documented as of this encounter (statuses as of 04/21/2023) Medications Medication Sig Dispensed Refills Start Date End Date Status aspirin enteric coated 81 MG TBECIndications:Co ronary artery disease involving [place] coronary artery of [place] heart without angina pectoris Take 1 Tablet [...] Oral Tablet (Lopressor)Indicat ions:Coronary artery disease involving [place] coronary artery of [place] heart without angina pectoris Take 1 Tablet by mouth daily. 90 Tablet 1 09/16/2022 Active Lisinopril 5 MG Oral Tablet (Prinivil) Take 1 Tablet by mouth in the morning. 90 Tablet 3 10/21/2022 Active Vitamin D3 25 MCG (1000 UT) Oral Tablet (Vitamin D3) Take 1 Tablet by mouth in the morning. 0 10/21/2022 Active Finasteride 5 MG Oral Tablet (Proscar)Indicatio ns:BPH without obstruction/lower urinary tract symptoms Take 1 Tablet by mouth in the morning. 100 Tablet 1 03/16/2023 Active Atorvastatin Calcium 40 MG Oral Tablet (Lipitor)Indicatio ns:Coronary artery disease involving [place] coronary artery of [place] heart without angina pectoris,Dyslipide dieter, goal LDL below 100 Take 1 Tablet by mouth daily. 100 Tablet 1 03/30/2023 Active documented as of this encounter (statuses as of 04/21/2023) Active Problems Problem Noted Date Diagnosed Date [...] 228 lb Coronary artery disease invo lving [place] coronary artery without angina pectoris 11/15/2014 Overview: H/o [place] medically managed 1997. Generalized OA 01/10/2013 ADVANCE [...] as of this encounter (statuses as of 04/21/2023) Resolved Problems Problem Noted Date Diagnosed Date [...] BMI 30.0-30.9,adult 12/13/19 16 Coronary atherosclerosis of [place] coronary artery 11/15/2014 Osteoarthritis of knees, bilateral 12/25/2016 documented as of this encounter (statuses as of 04/21/2023) Immunizations Name Administration Dates Next Due COVID-19 mRNA, LNP-s, No Pre serve, 2-Dose Series (Moderna) 05/25/2020,04/27/2020 COVID-19, LNP-s, No Preserve , Don-sucrose, Ages 12+ (Pfizer) 10/15/2021 COVID-19, MRNA-LNP, 23-24, P F, 30 MCG/0.3 mL, 12 YRS AND ABOVE, IM ([employer]-Comirnaty) 01/28/2023 COVID-19, mRNA, LNP-s, PF, B ooster, 100mcg/0.5mg (Moderna) 02/12/2021 Covid-19, Mrna, Lnp-s, Pf, B ivalent, 30 Mcg, IM, 12 yrs and above ([employer]) 04/17/2022 Pneumococcal Conjugate Vacc, 13 Valent (Prevnar) [...] on file documented as of this encounter Miscellaneous Notes * Telephone Encounter - Bridget PeñalozaANASTASIIA - 04/21/2023 8:06 AM EST Care Gaps Comprehensive Care Outreach Last Office/Telemedicine Visit: 01/28/2023 (in office), Visit date not found (telemedicine) Next Office Visit: 08/12/2023 Hemoglobin AIC Results: Lab Results Component Value Date/Time HEMOGLOBIN A1C - [facility] 6.7 (H) 01/28/2023 08:40 AM HEMOGLOBIN A1C - [facility] 7.5 (H) 07/08/2022 10:12 AM HEMOGLOBIN A1C - [facility] 6.7 (H) 09/17/2021 01:37 PM HEMOGLOBIN A1C - [facility] 6.4 (H) 01/09/2020 11:03 AM HEMOGLOBIN A1C - [facility] 7.1 (H) 07/11/2019 09:48 AM HEMOGLOBIN A1C - [facility] 6.2 (H) 09/01/2018 02:44 PM BP Readings from Last 1 Encounters: 01/28/23 132/68 Reviewed Health Maintenance below: Health Maintenance Topic Date Due Diabetic Foot Exam 04/15/2023 CKD HGB USE SMARTSET 14910 07/09/2023 CKD PHOS USE SMARTSET 46468 07/09/2023 Diabetic Eye Exam 07/26/2023 HbA1c 07/30/2023 labs Ordered he will walk in Care Gap Outreach Action Taken: Spoke to patient documented in this encounter Plan of Treatment Upcoming Encounters Date Type Department Care Team (Late st Contact Info) Description 05/06/2023 3:00 PM EDT Office Visit Dermatology [address] [place] [address] Ghazala Ramon PA-C [address] [place] [address] [place] [address] 05/26/2023 1:30 PM EDT Office Visit Interventional Pain Center, [facility] [address] [place] [address] Alen Thomas DO [address] [place] [phone] 07/07/2023 1:30 PM EDT Office Visit Nephrology [address] [place] [address] Allison Rivera PA-C [address] [place] [address] 08/12/2023 1:40 PM EDT Office Visit Family Medicine [address] [place] [phone] Lindsey Terrell MD [address] [place] [address] [place] [address] 10/08/2023 10:00 AM EDT Nurse Only Ancillary [address] [place] [address] [place], Nurse Annual Wellness [address] [place] [address] [place] [address] Scheduled Orders Name Type Priority Associated Diagnoses Orde r Schedule CBC Lab Routine Chronic kidney disease, unspecified CKD stage Expected: 07/20/2023, Expires: 04/21/2024 PHOSPHORUS Lab Routine Chronic kidney disease, unspecified CKD stage Expected: 07/20/2023, Expires: 04/21/2024 HEMOGLOBIN A1C Lab Routine Type 2 diabetes mellitus with stage 3b chronic kidney disease, without long-term current use of insulin (HCC) Expected: 07/20/2023, Expires: 04/21/2024 Health Maintenance Due Date Last Done Comments Diabetic Foot Exam 04/15/2023 04/15/2022, 0 04/12/2021, 03/07/2020, Additional history exists CKD HGB USE SMARTSET 28291 07/09/202307/08, 09/17/2021, 08/06/2020, Additional history exists CKD PHOS USE SMARTSET 04515 07/09/202306/23, 09/17/2021, 08/06/2020, Additional history exists Diabetic [...] Not on filedocumented as of this encounter Visit Diagnoses Diagnosis Diabetes mellitus screening- Primary Screening for diabetes mellitus Chronic kidney disease, unspecified CKD stage Type 2 diabetes mellitus with stage 3b chronic kidney disease, without long-term current use of insulin (HCC) documented in this encounter Care Teams Supervisor Drying And Winding Relationship Specialty Start Date End Date Lindsey Terrell MD [address] [place] [address] [place] [address] PCP - General Family Medicine 11/24/17 documented as of this encounter
--- OUTSIDE RECORDS SUMMARY | 2023-05-16 12:58 | External Medical Summary | Summary of Care ---
Author Name Unknown Organization [facility] Address [address] [place] [address] Phone [phone] Care Team Providers Care Chiropractic Care Name Role Phone Orin Sims MD Primary Care Prov ider Reason for Visit * Reason Onset Date Comments Medication Refill 04/30/2023 Encounter Details Date Type Department Care Team (Late st Contact Info) Description 04/30/2023 Refill Family Medicine [address] [phone] Orin Sims MD [address] [place] [address] Allergies Active Allergy Reactions Criticality Noted Date Comments Liraglutide Nausea/vomiting 06/01/2018 documented as of this encounter (statuses as of 04/30/2023) Medications Medication Sig Dispensed Refills Start Date End Date Status aspirin enteric coated 81 MG TBECIndications: Coronary artery disease involving [place] coronary artery of [place] heart without angina pectoris Take 1 Tablet by mouth in the morning. 100 Tab 3 01/05/2018 Active Caltrate 600+D Plus Minerals 600-800 MG-UNIT Oral Tablet Chewable Take 1 Tab by mouth daily. 0 Active Furosemide 20 MG Oral Tablet (Lasix)Indicatio ns:Type 2 diabetes mellitus with stage 3 chronic kidney disease, without long-term current use of insulin (HCC) TAKE 1 TABLET BY MOUTH DAILY 90 Tablet 3 02/21/2022 Active Meclizine HCl 25 MG Oral Tablet (Antivert)Indica tions:Benign paroxysmal positional vertigo due to bilateral vestibular disorder Take 1 Tablet by mouth 3 times a day as needed for Dizziness. 30 Tablet 1 07/10/2022 Active Additional Information Patient not taking.Reported on 01/28/2023 Metoprolol Tartrate 25 MG Oral Tablet (Lopressor)Indic ations:Coronary artery disease involving [place] coronary artery of [place] heart without angina pectoris Take 1 Tablet by mouth daily. 90 Tablet 1 09/16/2022 Active Vitamin D3 25 MCG (1000 UT) Oral Tablet (Vitamin D3) Take 1 Tablet by mouth in the morning. 0 10/21/2022 Active Finasteride 5 MG Oral Tablet (Proscar)Indicat ions:BPH without obstruction/lowe r urinary tract symptoms Take 1 Tablet by mouth in the morning. 100 Tablet 1 03/16/2023 Active Atorvastatin Calcium 40 MG Oral Tablet (Lipitor)Indicat ions:Coronary artery disease involving [place] coronary artery of [place] heart without angina pectoris,Dyslipi demia, goal LDL below 100 Take 1 Tablet by mouth daily. 100 Tablet 1 03/30/2023 Active Lisinopril 5 MG Oral Tablet (Prinivil) Take 1 Tablet by mouth in the morning. 90 Tablet 3 04/30/2023 Active Lisinopril 5 MG Oral Tablet (Prinivil) Take 1 Tablet by mouth in the morning. 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 Generalized OA 01/10/2013 ADVANCE [...] as of this encounter (statuses as of 04/30/2023) Resolved Problems Problem Noted Date Diagnosed Date [...] BMI 30.0-30.9,adult 12/13/19 16 Coronary atherosclerosis of [place] coronary artery 11/15/2014 Osteoarthritis of knees, bilateral 12/25/2016 documented as of this encounter (statuses as of 04/30/2023) Immunizations Name Administration Dates Next Due COVID-19 mRNA, LNP-s, No Pre serve, 2-Dose Series (Moderna) 05/25/2020,04/27/2020 COVID-19, LNP-s, No Preserve , Don-sucrose, Ages 12+ (Pfizer) 10/15/2021 COVID-19, MRNA-LNP, 23-24, P F, 30 MCG/0.3 mL, 12 YRS AND ABOVE, IM ([employer]-Comirnat) 01/28/2023 COVID-19, mRNA, LNP-s, PF, B ooster, [...] encounter Miscellaneous Notes * Telephone Encounter - Orin Sims MD - 04/30/2023 2:54 PM EST Signed Prescriptions: Disp Refills Lisinopril 5 MG Oral Tablet (Prinivil) 90 Tab*3 Sig: Take 1 Tablet by mouth in the morning. Authorizing Provider: ORIN SIMS * Telephone Encounter - Cleo Ruiz RN - 04/30/2023 2:05 PM ESTPending Prescriptions: Disp Refills Lisinopril 5 MG Oral Tablet (Prinivil) 90 Tab*3 Sig: Take 1 Tablet by mouth in the morning. * Telephone Encounter - Ines Brand OSA - 04/30/2023 2:02 PM EST Did you pend patient's preferred pharmacy and medication before forwarding?yes Pharmacy: [facility] Pending Prescriptions: Disp Refills Lisinopril 5 MG Oral Tablet (Prinivil) 90 Tab*3 Sig: Take 1 Tablet by mouth in the morning. Last Visit: 01/28/2023 (in office), Visit date not found (telemedicine) Next Visit: 08/12/2023 If no future appointments scheduled, and last appointment is greater than a year ago, please schedule patient for a follow-up appointment Last date the medication was ordered: 10.21.22 Is this request for a controlled substance?No Urine Drug Screen:No results found for this or any previous visit. Patient Phone Numbers Labs: Lab Results Component Value Date/Time CREAT 1.6 (H) 01/28/2023 08:40 AM CREAT 1.6 (H) 12/06/2019 10:12 AM POTASSIUM 4.8 01/28/2023 08:40 AM POTASSIUM 4.9 12/06/2019 10:12 AM TSH 0.679 05/15/2018 12:00 AM TSH 3.75 04/06/2018 10:58 AM LDLCALC 62 01/28/2023 08:40 AM LDLCALC 57 01/24/2019 11:09 AM LDLDIRECT NOT APPLICABLE 01/24/2019 11:09 AM LDLDIRECT 71 10/01/2010 08:59 AM ALT 18 01/28/2023 08:40 AM ALT 17 12/06/2019 10:10 AM HGBA1C 6.7 (H) 01/28/2023 08:40 AM HGBA1C 6.4 (H) 01/09/2020 11:03 AM documented in this encounter Plan of Treatment Upcoming Encounters Date Type Department Care Team (Late st Contact Info) Description 05/06/2023 3:00 PM EDT Office Visit Dermatology [address] [place] [address] Ghazala Ramon PA-C [address] [place] [address] [place] [address] 05/26/2023 1:30 PM EDT Office Visit Interventional [facility] Center, [facility] [address] [place] [address] Alen Thomas DO [address] [place] [phone] 07/07/2023 1:30 PM EDT Office Visit Nephrology [address] [place] [address] Allison Rivera PA-C [address] [place] [address] 08/12/2023 1:40 PM EDT Office Visit Family Medicine [address] [place] [phone] Orin Sims MD [address] [place] [address] [place] [address] 10/08/2023 10:00 AM EDT Nurse Only Ancillary [address] [place] [address] [place], Nurse Annual Wellness [address] [place] [address] [place] [address] Health Maintenance Due Date Last Done Comments Diabetic Foot Exam 04/15/2023 04/15/2022, 0 04/12/2021, 03/07/2020, Additional history exists CKD HGB USE SMARTSET 39512 07/09/202307/08, 09/17/2021, 08/06/2020, Additional history exists CKD PHOS USE SMARTSET 66155 07/09/202306/23, 09/17/2021, 08/06/2020, Additional history exists Diabetic Eye Exam 07/26/2023 07/25/2022, , 11/26/2020, Additional history exists HbA1c 07/30/2023 01/28/2023, 06/23, 09/17/2021, Additional history exists Depression Screening 10/07/2023 10/06/2022 Albumin/Creatinine Ratio 10/22/20232 023, 09/17/2021, 08/06/2020, Additional history exists DTaP,Tdap,and [...] Not on filedocumented as of this encounter Care Teams Chiropractic Care Relationship Specialty Start Date End Date Orin Sims MD [address] [place] [address] [place] [phone] PCP - General Family Medicine 11/24/17 documented as of this encounter
--- OUTSIDE RECORDS SUMMARY | 2023-05-16 12:58 | External Medical Summary | Summary of Care ---
Author Name Unknown Organization [facility] [address] [facility] [address] Phone [phone] Care Team Providers Care Record Librarian Name Role Phone Lindsey Terrell MD Primary Care Prov ider Reason for Visit * Reason Comments Follow Up Pt here for 6 month f/u for full skin exam. Hx of non-melanoma skin cancer. No concerns. Encounter Details Date Type Department Care Team (Late st Contact Info) Description 05/06/2023 3:00 PM EDT Office Visit Dermatology [address] [place] [address] Ghazala Ramon PA-C [address] [place] [address] [place] [address] History of nonmelanoma skin cancer*; Scar; Seborrheic keratosis; Skin exam, screening for cancer; Lentigines; Multiple nevi; Neoplasm of uncertain behavior of skin Allergies Active Allergy Reactions Criticality Noted Date Comments Liraglutide Nausea/vomiting 06/01/2018 documented as of this encounter (statuses as of 05/06/2023) Medications Medication Sig Dispensed Refills Start Date End Date Status aspirin enteric coated 81 MG TBECIndications:Co ronary artery disease involving [place] coronary artery of [place] heart without angina pectoris Take 1 Tablet [...] Oral Tablet (Lopressor)Indicat ions:Coronary artery disease involving [place] coronary artery of [place] heart without angina pectoris Take 1 Tablet [...] Oral Tablet (Lipitor)Indicatio ns:Coronary artery disease involving [place] coronary artery of [place] heart without angina pectoris,Dyslipide dieter, goal LDL [...] 228 lb 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 Generalized OA 01/10/2013 ADVANCE [...] BMI 30.0-30.9,adult 12/13/19 16 Coronary atherosclerosis of [place] coronary artery 11/15/2014 Osteoarthritis of knees, bilateral [...] Valent (Prevnar) 07/18/2014 Pneumococcal Polysaccharide PPV23 (Pneumovax) 09/01/2018,04/25/2002 Seasonal Influenza, PF, 6 M & above, [...] zinc. Product examples; Think sport, Think baby, [place], Babo botanicalSensentia, [place] in2nite, [place] baby. "Baby" products can be used for all ages. documented in this encounter Progress Notes * Sen Chun MD - 05/06/2023 3:32 PM EDT I have seen and examined the patient via teledermatology review of chart note and photos with Ghazala Ramon PA-C. I have reviewed and agree with the assessment and plan. * Ghazala Ramon PA-C - 05/06/2023 3:00 PM EDT SUBJECTIVE: History of Present Illness: Aquilino Rashid is a 87 year old male seen today for follow up of full skin exam/invasive SCC hx. Previous office visit: 11/05/2022 Last attempted treatments include: cryo to AKs No new or changing lesions, per pt. Wellness Spa Manager Documentation Patient offered information security analyst and declined. REVIEW OF SYSTEMS: SKIN: No [...] 04/16 Reviewed, same day as visit, 0 [facility] Dermatology lab work(s)/pathology report(s) as well [...] Ghazala Ramon PA-C 05/06/2023 3:14 PM Dermatology [address] [place] [address] documented in this encounter Nursing Notes * [...] PM EDT Office Visit Interventional Pain Center, [facility] [address] [place] [address] Alen Thomas DO [address] [place] [phone] 08/12/2023 1:40 PM EDT Office Visit Family Medicine [address] [place] [phone] Lindsey Terrell MD [address] [place] [address] [place] [address] 10/08/2023 10:00 AM EDT Nurse Only Ancillary [address] [place] [address] [place], Nurse Annual Wellness [address] [place] [address] [place] [address] 03/23/2024 2:20 PM EST Office Visit Dermatology [address] [place] [address] Ghazala Ramon PA-C [address] [place] [address] [place] [address] Health Maintenance Due Date Last Done Comments Diabetic Foot Exam 04/15/2023 04/15/2022, 0 04/12/2021, 03/07/2020, Additional history exists CKD HGB USE SMARTSET 15759 07/09/202307/08, 09/17/2021, 08/06/2020, Additional history exists CKD PHOS USE SMARTSET 06820 07/09/202306/23, 09/17/2021, 08/06/2020, Additional history exists Diabetic [...] skin documented in this encounter Care Teams Record Librarian Relationship Specialty Start Date End Date Lindsey Terrell MD [address] [place] [address] [place] [address] PCP - General Family Medicine 11/24/17 documented as of this encounter
--- OUTSIDE RECORDS SUMMARY | 2023-05-16 12:59 | External Medical Summary | Summary of Care ---
Author Name Unknown Organization [facility] Address [address] [facility] [place] [address] Phone [phone] Care Team Providers Care Health Inspector Food Name Role Phone Lindsey Terrell MD Primary Care Prov ider Reason for Visit * Reason Comments Follow Up B/L knee pain 2nd in jection B/L knee gelysn Encounter Details Date Type Department Care Team (Latest Contact Info) Description 02/19/2023 1:00 PM EST Office Visit Orthopaedics [address] [phone] Aamir Thomas MD [address] [facility] [place] [address] Primary osteoarthritis of both knees* Allergies Active Allergy Reactions Criticality Noted Date Comments Liraglutide Nausea/vomiting 06/01/2018 documented as of this encounter (statuses as of 02/19/2023) Medications Medication Sig Dispensed Refills Start Date End Date Status aspirin enteric coated 81 MG TBECIndications:Co ronary artery disease involving [place] coronary artery of [place] heart without angina pectoris Take 1 Tablet [...] Oral Tablet (Lopressor)Indicat ions:Coronary artery disease involving [place] coronary artery of [place] heart without angina pectoris Take 1 Tablet by mouth daily. 90 Tablet 1 09/16/2022 Active Lisinopril 5 MG Oral Tablet (Prinivil) Take 1 Tablet by mouth in the morning. 90 Tablet 3 10/21/2022 Active Vitamin D3 25 MCG (1000 UT) Oral Tablet (Vitamin D3) Take 1 Tablet by mouth in the morning. 0 10/21/2022 Active Atorvastatin Calcium 40 MG Oral Tablet (Lipitor)Indicatio ns:Coronary artery disease involving [place] coronary artery of [place] heart without angina pectoris,Dyslipide dieter, goal LDL below 100 Take 1 Tablet by mouth daily. 100 Tablet 1 12/22/2022 Active Finasteride 5 MG Oral Tablet (Proscar) Take 1 Tablet by mouth in the morning. 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 Generalized OA 01/10/2013 ADVANCE [...] as of this encounter (statuses as of 02/19/2023) Resolved Problems Problem Noted Date Diagnosed Date [...] BMI 30.0-30.9,adult 12/13/19 16 Coronary atherosclerosis of [place] coronary artery 11/15/2014 Osteoarthritis of knees, bilateral 12/25/2016 documented as of this encounter (statuses as of 02/19/2023) Immunizations Name Administration Dates Next Due COVID-19 [...] Used Date Smoking Tobacco: Former Cigarettes 1 Q uit: 02/24/1960 Smokeless Tobacco: Never Alcohol Use Standard [...] on file documented as of this encounter Progress Notes * Aamir Thomas MD - 02/19/2023 1:00 PM EST t Name: Aquilino Rashid Diagnosis: OA bilateral knee. The patient is here for the SECOND of a series of Gelsyn injections. There is no sign of infection in the injected knee. A timeout was called immediately prior to the procedure, to confirm the correct patient, procedure,and site. The site was marked by the physician prior to the procedure. Site was identified: knee: Bilateral Procedure: Under sterile fashion, a 2 ml vial of Gelsyn was injected intra- articularly into the knee. Patient tolerated this well. Assessment: OA BILATERAL knee. Plan: The patient will follow up in 1 Week for reinjection. Aamir Thomas MD Primary Care Sports Medicine Orthopaedics [address] [phone] documented in this encounter Nursing Notes * Ladan Flor LPN - 02/19/2023 1:09 PM EST F/U B/L knee pain 2nd injection B/L knee gelysn Last B/L knee injection 10/07/2022 steroid documented in this encounter Plan of Treatment Upcoming Encounters Date Type Department Care Team (Late st Contact Info) Description 02/26/2023 1:00 PM EST Office Visit Orthopaedics [address] [phone] Aamir Thomas MD [address] [place] [address] 05/06/2023 3:00 PM EDT Office Visit Dermatology [address] [place] [address] Ghazala Ramon PA-C [address] [place] [address] [place] [address] 07/07/2023 1:30 PM EDT Office Visit Nephrology [address] [place] [address] Allison Rivera PA-C [address] [place] [address] 08/12/2023 1:40 PM EDT Office Visit Family Medicine [address] [place] [phone] Lindsey Terrell MD [address] [place] [address] [place] [address] 10/08/2023 10:00 AM EDT Nurse Only Ancillary [address] [place] [address] [place], Nurse Annual Wellness [address] [place] [address] [place] [address] Health Maintenance Due Date Last Done Comments Hepatitis B (1 of 3 - Risk 3-dose series) 1996 Diabetic Foot Exam 04/15/2023 04/15/2022, 0 04/12/2021, 03/07/2020, Additional history exists CKD HGB USE SMARTSET 78222 07/09/202307/08, 09/17/2021, 08/06/2020, Additional history exists CKD PHOS USE SMARTSET 14756 07/09/202306/23, 09/17/2021, 08/06/2020, Additional history exists Diabetic [...] as of this encounter Visit Diagnoses Diagnosis Primary osteoarthritis of both knees- Primary Primary localized osteoarthrosis, lower leg documented in this encounter Care Teams Health Inspector Food Relationship Specialty Start Date End Date Lindsey Terrell MD [address] [place] [address] [place] [phone] PCP - General Family Medicine 11/24/17 documented as of this encounter
--- OUTSIDE RECORDS SUMMARY | 2023-05-16 12:59 | External Medical Summary | Summary of Care ---
Author Name Unknown Organization [facility] Address [address] [place] [address] Phone [phone] Care Team Providers Care E Business Consultant Name Role Phone Orin Sims MD Primary Care Prov ider Reason for Visit * Reason Onset Date Comments Medication Refill 03/30/2023 Encounter Details Date Type Department Care Team (Late st Contact Info) Description 03/30/2023 Refill Family Medicine [address] [phone] Orin Sims MD [address] [place] [id number] Coronary artery disease involving pechanga coronary artery of pechanga heart without angina pectoris; Dyslipidemia, goal LDL below 100 Allergies Active Allergy Reactions Criticality Noted Date Comments Liraglutide Nausea/vomiting 06/01/2018 documented as of this encounter (statuses as of 03/30/2023) Medications Medication Sig Dispensed Refills Start Date End Date Status aspirin enteric coated 81 MG TBECIndications: Coronary artery disease involving pechanga coronary artery of pechanga heart without angina pectoris Take 1 Tablet [...] Oral Tablet (Lopressor)Indic ations:Coronary artery disease involving pechanga coronary artery of pechanga heart without angina pectoris Take 1 Tablet [...] Oral Tablet (Lipitor)Indicat ions:Coronary artery disease involving pechanga coronary artery of pechanga heart without angina pectoris,Dyslipi demia, goal LDL below 100 Take 1 Tablet by mouth daily. 100 Tablet 1 03/30/2023 Active Atorvastatin Calcium 40 MG Oral Tablet (Lipitor)Indicat ions:Coronary artery disease involving pechanga coronary artery of pechanga heart without angina pectoris,Dyslipi demia, goal LDL below 100 Take 1 Tablet by mouth daily. 100 Tablet 1 12/22/2022 4 Discontinue d(Refill) documented as of this encounter (statuses as of 03/30/2023) Active Problems Problem Noted Date Diagnosed Date [...] 228 lb Coronary artery disease invo lving pechanga coronary artery without angina pectoris 11/15/2014 Overview: H/o [place] medically managed 1997. Generalized OA 01/10/2013 ADVANCE [...] as of this encounter (statuses as of 03/30/2023) Resolved Problems Problem Noted Date Diagnosed Date [...] BMI 30.0-30.9,adult 12/13/19 16 Coronary atherosclerosis of pechanga coronary artery 11/15/2014 Osteoarthritis of knees, bilateral 12/25/2016 documented as of this encounter (statuses as of 03/30/2023) Immunizations Name Administration Dates Next Due COVID-19 mRNA, LNP-s, No Pre serve, 2-Dose Series (Moderna) 05/25/2020,04/27/2020 COVID-19, LNP-s, No Preserve , Don-sucrose, Ages 12+ (Pfizer) 10/15/2021 COVID-19, MRNA-LNP, 23-24, P F, 30 MCG/0.3 mL, 12 YRS AND ABOVE, IM (MessageMe-Comirnaty) 01/28/2023 COVID-19, mRNA, LNP-s, PF, B ooster, [...] Telephone Encounter - Orin Sims MD - 03/30/2023 3:55 PM EST Signed Prescriptions: Disp Refills Atorvastatin Calcium 40 MG Oral Tablet (Li*100 Ta*1 Sig: Take 1 Tablet by mouth daily. Authorizing Provider: ORIN SIMS * Telephone Encounter - Cleo Ruiz, FARHAT - 03/30/2023 2:08 PM ESTPending Prescriptions: Disp Refills Atorvastatin Calcium 40 MG Oral Tablet (Li*100 Ta*1 Sig: Take 1 Tablet by mouth daily. * Telephone Encounter - Ines Brand OSA - 03/30/2023 1:47 PM EST Did you pend patient's preferred pharmacy and medication before forwarding?yes Pharmacy: [facility] Pending Prescriptions: Disp Refills Atorvastatin Calcium 40 MG Oral Tablet (L*100 Ta*1 Sig: Take 1 Tablet by mouth daily. Last Visit: 01/28/2023 (in office), Visit date not found (telemedicine) Next Visit: 08/12/2023 If no future appointments scheduled, and last appointment is greater than a year ago, please schedule patient for a follow-up appointment Last date the medication was ordered: 12.22.22 Is this request for a controlled substance?No [...] Care Team (Late st Contact Info) Description 04/09/2023 1:00 PM EST Office Visit Orthopaedics [address] [place] [phone] Aamir Thomas MD [address] [place] [address] 05/06/2023 3:00 PM EDT Office Visit Dermatology [address] [place] [address] Ghazala Ramon PA-C [address] [place] [address] [place] [address] 07/07/2023 1:30 PM EDT Office Visit Nephrology [address] [place] [address] Allison Rivera PA-C [address] [place] [address] 08/12/2023 1:40 PM EDT Office Visit Family Medicine [address] [place] [phone] Orin Sims MD [address] [place] [address] [place] [address] 10/08/2023 10:00 AM EDT Nurse Only Ancillary [address] [place] [address] [place], Nurse Annual Wellness [address] [place] [address] [place] [address] Health Maintenance Due Date Last Done Comments Hepatitis B (1 of 3 - Risk 3-dose series) 1996 Diabetic Foot Exam 04/15/2023 04/15/2022, 0 04/12/2021, 03/07/2020, Additional history exists CKD HGB USE SMARTSET 25065 07/09/202307/08, 09/17/2021, 08/06/2020, Additional history exists CKD PHOS USE SMARTSET 47457 07/09/202306/23, 09/17/2021, 08/06/2020, Additional history exists Diabetic [...] as of this encounter Visit Diagnoses Diagnosis Coronary artery disease involving pechanga coronary artery of pechanga heart without angina pectoris Dyslipidemia, goal LDL below 100 Other and unspecified hyperlipidemia documented in this encounter Care Teams E Business Consultant Relationship Specialty Start Date End Date Orin Sims MD [address] [place] [address] [place] [phone] PCP - General Family Medicine 11/24/17 documented as of this encounter
--- OUTSIDE RECORDS SUMMARY | 2023-05-16 12:59 | External Medical Summary | Summary of Care ---
Author Name Unknown Organization [facility] Address [address] [place] [address] Phone [phone] Care Team Providers Care Corporate Travel Expert Name Role Phone Lindsey Terrell MD Primary Care Prov ider Reason for Visit * Reason Comments Follow Up B/L knee pain 1 st i njection B/L knee gelysn Last B/L knee injection 10/07/2022 steroid last injection Gelsyn B/L knees 08/07/2022 Encounter Details Date Type Department Care Team (Latest Contact Info) Description 02/12/2023 1:00 PM EST Office Visit Orthopaedics [address] [phone] Aamir Thomas MD [address] [place] [address] Primary osteoarthritis of both knees* Allergies Active Allergy Reactions Criticality Noted Date Comments Liraglutide Nausea/vomiting 06/01/2018 documented as of this encounter (statuses as of 02/12/2023) Medications Medication Sig Dispensed Refills Start Date End Date Status aspirin enteric coated 81 MG TBECIndications:Co ronary artery disease involving poarch coronary artery of poarch heart without angina pectoris Take 1 Tablet [...] Oral Tablet (Lopressor)Indicat ions:Coronary artery disease involving poarch coronary artery of poarch heart without angina pectoris Take 1 Tablet [...] Oral Tablet (Lipitor)Indicatio ns:Coronary artery disease involving poarch coronary artery of poarch heart without angina pectoris,Dyslipide dieter, goal LDL [...] of both knees 16.8 mg IX ONCE 02/12/2023 02/13/2023 Active sodium hyaluronate (Gelsyn-3) 16.8 MG/2ML inj 16.8 mgIndications:Primary osteoarthritis of both knees 16.8 mg IX ONCE 02/12/2023 02/13/2023 Active documented as of this encounter (statuses as of 02/12/2023) Active Problems Problem Noted Date Diagnosed Date [...] 228 lb Coronary artery disease invo lving poarch coronary artery without angina pectoris 11/15/2014 Overview: H/o [place] medically managed 1997. Generalized OA 01/10/2013 ADVANCE [...] as of this encounter (statuses as of 02/12/2023) Resolved Problems Problem Noted Date Diagnosed Date [...] BMI 30.0-30.9,adult 12/13/19 16 Coronary atherosclerosis of poarch coronary artery 11/15/2014 Osteoarthritis of knees, bilateral 12/25/2016 documented as of this encounter (statuses as of 02/12/2023) Immunizations Name Administration Dates Next Due COVID-19 [...] Progress Notes * Aamir Thomas MD - 02/12/2023 1:14 PM EST Aquilino Rashid [id number] Aquilino Rashid is a 86 year old male who presents for f/u to [facility] for bilateral knee injury/pain. I saw him initially for this on 05/15/2022 Most recent full issue for this was on 11/20/2022 was a telephone encounter Telephone visit done today rather than in office visit. Aquilino Rashid is here unaccompanied Quality: reviewed and agree with Nursing Notes for HPI elements History: History on 05/15/2022 - New patient B/L knee pain x 5 years patient deneis any pain except with activity Nerve block above the knee and also injection 3-4 years ago at [place] [facility] Last A1C was 09/17/2021 6.7 Patient denies any PT or injury or bracing or surgery Additional history 06/05/2022: reports benefit but not resolution of pain in the left knee. Desires to have the right knee injected Additional history on 09/11/2022: Reports significant early benefit from the viscosupplementation but that is started to decrease Most recent visit 08/07/2022 Additional history 10/07/2022: Presents today for BL steroid injections Additional history 11/20/2022: Reports improvement but not resolution of pain. ROS: ROS per HPI otherwise non-contributory Past Medical History: Diagnosis Date Benign neoplasm of colon 11/23/06 adenomatous polyp--repeat 5 years BMI 32.0-32.9,adult 12/13/15 215 lbs BMI 34.0-34.9,adult 06/19/2016 228 lb CKD (chronic kidney disease) stage 3, GFR 30-59 ml/min ([facility]) 01/09/14 GFR 52.1 Coronary atherosclerosis of poarch coronary artery DM type 2 causing CKD stage 3 ([facility]) DM type 2, goal A1c below 7 Dyslipidemia, goal LDL below 100 Generalized osteoarthrosis, unspecified site Hypertrophy of prostate without urinary obstruction and other lower urinary tract symptoms (LUTS) Nephritis and nephropathy, not specified as acute or chronic, with other specified pathological lesion in kidney, in diseases classified elsewhere Osteoarthritis of knees, bilateral Family History Problem Relation Age of Onset Heart Disorder Sister mi age 60 Heart Disorder Brother cabg age 65 Cancer Mother unknown Diabetes Mother Cancer Father unknown Diabetes Sister Social History Socioeconomic History Marital status: Spouse name: Not on file Number of children: Not on file Years of education: Not on file Highest education level: Not on file Occupational History Not on file Tobacco Use Smoking status: Former Years: 1 Types: Cigarettes Quit date: 02/24/1960 Years since quittin.0 Smokeless tobacco: Never Vaping Use Vaping Use: Never used Substance and Sexual Activity Alcohol use: No Drug use: No Sexual activity: Not Currently Other Topics Concern Service Yes Comment: [employer], did [employer]ide duty Blood Transfusions Not Asked Caffeine Concern Not Asked Occupational Exposure Not Asked Hobby Hazards Not Asked Sleep Concern Not Asked Stress Concern Not Asked Weight Concern Not Asked Special Diet Not Asked Back Care Not Asked Exercise Not Asked Bike Helmet Not Asked Seat Belt Not Asked Self-Exams Not Asked Social History Narrative 64yrs as 10/06/2022 Social Determinants of Health Financial Resource Strain: Not on file Food Insecurity: No Food Insecurity (10/06/2022) Hunger Vital Sign Worried About Running Out of Food in the Last Year: Never true Ran Out of Food in the Last Year: Never true Transportation Needs: Not on file Physical Activity: Not on file Stress: Not on file Social Connections: Not on file Intimate Partner Violence: Not on file Housing Stability: Not on file Physical Exam Constitutional: generally well-nourished and in no acute distress Psychiatric: Mood and Affect normal Eyes: EOMI Respiratory: normal respiratory effort with regular rate and rhythm Limited knee evaluation: No erythema, no effusion Radiology (I have personally reviewed the following films): 05/15/2021: Three-view x-ray of each knee FINDINGS Bilateral multi compartment knee joint osteoarthrosis, advanced in severity given degree of bilateral medial tibiofemoral joint space loss. Chronic centrally lucent, peripherally sclerotic right lateral tibial plateau bone lesion (lateral aspect), benign given relative stability compared to prior (2017) radiographs. Small volume bilateral knee joint effusions. Right superior patellar enthesopathy. Nonacute foci of right quadriceps tendon mineralization near patella, most compatible with remote trauma or calcific tendinitis. Nonacute tiny foci of mineralization in the left anterior knee soft tissues, likely phleboliths or remote trauma. Bilateral extremity atheromatous disease. IMPRESSION IMPRESSION Advanced bilateral knee joint osteoarthrosis. Assessment and Plan: 1) Chronic BL knee pain Secondary to DJD Patient reports that he has never had both knees injected at the same time given his diabetes. Mostrecent injections were years ago. Intra-articular Left knee steroid injection performed 05/15/2022 Intra-articular Right knee steroid injection performed 06/05/2022 repeat intra-articular steroid injection bilaterally, which were repeated 10/07/2022 improvement but not resolution of pain. Bilateral viscosupplementation with gelsyn completed 08/07/2022 helped significantly bilateral viscosupplementation started today 02/11/2023 with gelsyn Note: Patient is a diabetic Last A1C was 07/08/2022 7.5 Pt Name: Aquilino Rashid Diagnosis: OA bilateral knee. The patient is here for the first of a series of Gelsyn injections. There [...] Thomas MD Primary Care Sports Medicine Orthopaedics [address] [phone] documented in this encounter Nursing Notes * Ladan Flor LPN - 02/12/2023 1:03 PM EST B/L knee pain with activity 1 st injection B/L knee gelysn Last B/L knee injection 10/07/2022 steroid lasting about 2 mths last injection Gelsyn B/L knees 08/07/2022 documented in this encounter Plan of Treatment Upcoming Encounters Date Type Department Care Team (Late st Contact Info) Description 02/19/2023 1:00 PM EST Office Visit Orthopaedics [address] [place] [phone] Aamir Thomas MD [address] [place] [address] 02/26/2023 1:00 PM EST Office Visit Orthopaedics [address] [place] [phone] Aamir Thomas MD [address] [place] [address] 05/06/2023 3:00 PM EDT Office Visit Dermatology [address] [place] [address] Ghazala Ramon PA-C [address] [place] [address] [place] [address] 07/07/2023 1:30 PM EDT Office Visit Nephrology [address] [place] [address] Allison Rivera PA-C [address] [place], [place] [address] [address] 08/12/2023 1:40 PM EDT Office Visit Family Medicine [address] [place] [phone] Lindsey Terrell MD [address] [place] [address] [place] [address] 10/08/2023 10:00 AM EDT Nurse Only Ancillary [address] [place] [address] [place], Nurse [address] [place] [address] Health Maintenance Due Date Last Done Comments Hepatitis B (1 of 3 - Risk 3-dose series) 1996 Diabetic Foot Exam 04/15/2023 04/15/2022, 0 04/12/2021, 03/07/2020, Additional history exists CKD HGB USE SMARTSET 94951 07/09/202307/08, 09/17/2021, 08/06/2020, Additional history exists CKD PHOS USE SMARTSET 15062 07/09/202306/23, 09/17/2021, 08/06/2020, Additional history exists Diabetic [...] leg documented in this encounter Care Teams Corporate Travel Expert Relationship Specialty Start Date End Date Lindsey Terrell MD [address] [place] [address] [place] [address] PCP - General Family Medicine 11/24/17 documented as of this encounter
--- OUTSIDE RECORDS SUMMARY | 2023-05-16 12:59 | External Medical Summary | Summary of Care ---
Author Name Unknown Organization [facility] Address [address] [place] [address] Phone [phone] Care Team Providers Care E Business Consultant Name Role Phone Lindsey Terrell MD Primary Care Prov ider Reason for Referral * Evaluate & Treat - Unlimited Visits (Within 10 days (routine)) - Authorized Specialty Diagnoses / Procedures Referred By Harleen alcazar Referred To Contact Pain Management / Pain Medicine Diagnoses Primary osteoarthritis of both knees Aamir Thomas MD [address] [place] [address] Referral ID Status Reason Start Date Expiration Date Visits Requested Visits Authorized [id number] Authorized Specialty Services Required 04/09/2023 999 999 Question Answer Referral Priority Within 10 days (routine) Where should this appointment be scheduled? [facility] Reason for referral? Interventional Pain Management - (Injection) What condition is the patient being referred for? Hip/Shoulder/Knee What is the preferred location to have this test performed? [facility] Comments To Dr. Thomas (pain management) - eval for possible genicular nerve RFA Patient Name: Aquilino Rashid Date of : 1935 Department Phone Number: MRI or CT (if unable to have a MRI) is recommended if any of the following apply: 1. Patient has neck or back pain with radiation to extremities. A previous MRI will be accepted if symptoms unchanged since prior MRI. 2. Spinal surgery since last MRI. If yes, order a MRI with and without contrast. 3. Hx or ongoing cancer treatment. Patient will need spine x-ray (Ap/Lat) for axial neck or back pain if not done previously. Fax No. [facility] [phone] or contact front office attendant [phone] Fax No. [facility] [phone] or contact front office attendant [phone] Fax No. [facility] [phone] or contact front office attendant [phone] Reason for Visit * Reason Comments Follow Up Bilateral knee Encounter Details Date Type Department Care Team (Latest Contact Info) Description 04/09/2023 1:00 PM EST Office Visit Orthopaedics [address] [phone] [facility]ir [facility] [address] [id number] Primary osteoarthritis of both knees* Allergies Active Allergy Reactions Criticality Noted Date Comments Liraglutide Nausea/vomiting 06/01/2018 documented as of this encounter (statuses as of 04/09/2023) Medications Medication Sig Dispensed Refills Start Date End Date Status aspirin enteric coated 81 MG TBECIndications:Co ronary artery disease involving [place] coronary artery of [place] heart without angina pectoris Take 1 Tablet [...] Oral Tablet (Lopressor)Indicat ions:Coronary artery disease involving [place] coronary artery of [place] heart without angina pectoris Take 1 Tablet [...] Oral Tablet (Lipitor)Indicatio ns:Coronary artery disease involving [place] coronary artery of [place] heart without angina pectoris,Dyslipide dieter, goal LDL below 100 Take 1 Tablet by mouth daily. 100 Tablet 1 03/30/2023 Active Hospital, Clinic, or Other Facility Administered Medication Ordered Dose Route Frequency Start Date End Date Status lidocaine 1 % inj 10 mgIndications:Primary osteoarthritis of both knees 10 mg IX ONCE 04/09/2023 04/10/2023 Active lidocaine 1 % inj 10 mgIndications:Primary osteoarthritis of both knees 10 mg IX ONCE 04/09/2023 04/10/2023 Active Triamcinolone Acetonide (Kenalog) 40 MG/ML inj 40 mgIndications:Primary osteoarthritis of both knees 40 mg IX ONCE 04/09/2023 04/10/2023 Active Triamcinolone Acetonide (Kenalog) 40 MG/ML inj 40 mgIndications:Primary osteoarthritis of both knees 40 mg IX ONCE 04/09/2023 04/10/2023 Active documented as of this encounter (statuses as of 04/09/2023) Active Problems Problem Noted Date Diagnosed Date [...] 228 lb Coronary artery disease invo lving [place] coronary artery without angina pectoris 11/15/2014 Overview: H/o [place] medically managed 1997. Generalized OA 01/10/2013 ADVANCE [...] as of this encounter (statuses as of 04/09/2023) Resolved Problems Problem Noted Date Diagnosed Date [...] BMI 30.0-30.9,adult 12/13/19 16 Coronary atherosclerosis of [place] coronary artery 11/15/2014 Osteoarthritis of knees, bilateral 12/25/2016 documented as of this encounter (statuses as of 04/09/2023) Immunizations Name Administration Dates Next Due COVID-19 [...] Progress Notes * Aamir Thomas MD - 04/09/2023 1:00 PM EST Aquilino Rashid [id number] Aquilino Rashid is a 86 year old male who presents for f/u to [facility] for bilateral knee injury/pain. I saw him initially for this on 05/15/2022 Most recent full issue for this was on 11/20/2022 was a telephone encounter, however he has been seeing since for procedure only visit Aquilino Manning Rashid is here unaccompanied Quality: reviewed and agree with Nursing Notes for HPI elements History: History on 05/15/2022 - New patient B/L knee pain x 5 years patient deneis any pain except with activity Nerve block above the knee and also injection 3-4 years ago at [place] Last A1C was 09/17/2021 6.7 Patient denies [...] today for BL steroid injections Additional history on 11/20/2022: Reports improvement but not resolution of pain. Since that visit: Reports improvement from viscosupplementation series but not resolution. ROS: ROS per HPI otherwise non-contributory Past Medical History: Diagnosis Date Benign neoplasm of colon 11/23/06 adenomatous polyp--repeat 5 years BMI 32.0-32.9,adult 12/13/15 215 lbs BMI 34.0-34.9,adult 06/19/2016 228 lb CKD (chronic kidney disease) stage 3, GFR 30-59 ml/min ([facility]) 01/09/14 GFR 52.1 Coronary atherosclerosis of [place] coronary artery DM type 2 causing CKD stage 3 ([facility]) DM type 2, goal A1c below 7 [...] Types: Cigarettes Quit date: 02/24/1960 Years since quittin.1 Smokeless tobacco: Never Vaping Use Vaping Use: [...] regular rate and rhythm Limited knee evaluation: Full extension and flexion No effusion no erythema Radiology (I have personally reviewed the following [...] time given his diabetes. Mostrecent injections were Intra-articular Left knee steroid injection performed 05/15/2022 Intra-articular Right knee steroid injection performed 06/05/2022 repeat intra-articular steroid injection bilaterally, which were repeated 10/07/2022 Bilateral viscosupplementation with gelsyn completed 08/07/2022 helped significantly initially Viscosupplementation with Gelsyn completed BL on 02/26/2023 Reports improvement from viscosupplementation series but not resolution. Bilateral intra-articular steroid injections repeated today 04/09/[address] Thomas (pain management) for evaluation for possible genicular nerve radiofrequency ablation. Note: Patient is a diabetic Last A1C was 01/28/2023 6.7 Follow-up p.r.n. He is aware that viscosupplementation be done every 6 months and steroids repeated every 3-4 months. However depending on his evaluation with pain management hopefully he does not need injections fora while. He has no interest in the surgical consultation After connecting to the patient via telephone, the patient was identified by name and date of . Patient was then informed that this was a telephone call only visit. The patient agreed to participate. Visit Disposition: Routine follow-up Total call duration was 5 minutes. Aamir Thomas MD Primary Care Sports Medicine Orthopaedics [address] [phone] documented in this encounter Nursing Notes * Yamilka Christy RN - 04/09/2023 1:03 PM EST Pt presents today for F/U 6 weeks post B/L knee gelysn injections. Last series given 02/26/23 . Last 2-3 weeks and pain back. Pain today 08/02. Crystal L Westley, RN documented in this encounter Plan of Treatment Upcoming Encounters Date Type Department Care Team (Late st Contact Info) Description 05/06/2023 3:00 PM EDT Office Visit Dermatology [address] [place] [address] Ghazala Ramon PA-C [address] [place] [address] [place] [address] 05/26/2023 1:30 PM EDT Office Visit [facility], [facility] [address] [place] [phone] Alen Thomas DO [address] [place] [phone] 07/07/2023 1:30 PM EDT Office Visit Nephrology [address] [place] [address] Allison Rivera PA-C [address] [place] [address] 08/12/2023 1:40 PM EDT Office Visit Family Medicine [address] [place] [phone] Lindsey Terrell MD [address] [place] [address] [place] [address] 10/08/2023 10:00 AM EDT Nurse Only Ancillary [address] [place] [address] Karthikeyan, Nurse Annual Wellness [address] [place] [address] [place] [address] Scheduled Referrals Name Type Priority Associated Diagnoses Orde r Schedule PAIN MEDICINE REFERRAL OP Referral Within 10 days (routine) Primary osteoarthritis of both knees Ordered: 04/09/2023 Health Maintenance Due Date Last Done Comments Hepatitis B (1 of 3 - Risk 3-dose series) 1996 Diabetic Foot Exam 04/15/2023 04/15/2022, 0 04/12/2021, 03/07/2020, Additional history exists CKD HGB USE SMARTSET 79422 07/09/202307/08, 09/17/2021, 08/06/2020, Additional history exists CKD PHOS USE SMARTSET 97717 07/09/202306/23, 09/17/2021, 08/06/2020, Additional history exists Diabetic [...] leg documented in this encounter Care Teams E Business Consultant Relationship Specialty Start Date End Date Lindsey Terrell MD [address] [place] [address] [place] [address] PCP - General Family Medicine 11/24/17 documented as of this encounter
--- OUTSIDE RECORDS SUMMARY | 2023-05-16 12:59 | External Medical Summary | Summary of Care ---
Author Name Unknown Organization [facility] Address [address] [facility] [place] [address] Phone [phone] Care Team Providers Care Mercantile Agent Name Role Phone Lindsey Terrell MD Primary Care Prov ider Reason for Visit * Reason Comments Follow Up B/L knee pain 2nd in jection B/L knee gelysn Encounter Details Date Type Department Care Team (Latest Contact Info) Description 02/19/2023 1:00 PM EST Office Visit Orthopaedics [address] [phone] Aamir Thomas MD [address] [facility] [place] [address] Primary osteoarthritis of both knees* Allergies Active Allergy Reactions Criticality Noted Date Comments Liraglutide Nausea/vomiting 06/01/2018 documented as of this encounter (statuses as of 02/19/2023) Medications Medication Sig Dispensed Refills Start Date End Date Status aspirin enteric coated 81 MG TBECIndications:Co ronary artery disease involving [place] coronary artery of [place] heart without angina pectoris Take 1 Tablet [...] Oral Tablet (Lopressor)Indicat ions:Coronary artery disease involving [place] coronary artery of [place] heart without angina pectoris Take 1 Tablet [...] Oral Tablet (Lipitor)Indicatio ns:Coronary artery disease involving [place] coronary artery of [place] heart without angina pectoris,Dyslipide dieter, goal LDL [...] both knees 16.8 mg IX ONCE 02/19/2023 02/19/2023 Ended sodium hyaluronate (Gelsyn-3) 16.8 MG/2ML inj 16.8 mgIndications:Primary osteoarthritis of both knees 16.8 mg IX ONCE 02/19/2023 02/19/2023 Ended documented as of this encounter (statuses as [...] 228 lb Coronary artery disease invo lving [place] coronary artery without angina pectoris 11/15/2014 Overview: H/o [place] medically managed 1997. Generalized OA 01/10/2013 ADVANCE [...] BMI 30.0-30.9,adult 12/13/19 16 Coronary atherosclerosis of [place] coronary artery 11/15/2014 Osteoarthritis of knees, bilateral [...] Thomas MD Primary Care Sports Medicine Orthopaedics [address] [phone] documented in this encounter Nursing Notes * Ladan Flor LPN - 02/19/2023 1:09 PM EST F/U B/L knee pain 2nd injection B/L knee gelysn Last B/L knee injection 10/07/2022 steroid documented in this encounter Plan of Treatment Upcoming Encounters Date Type Department Care Team (Late st Contact Info) Description 02/26/2023 1:00 PM EST Office Visit Orthopaedics [address] [phone] Aamir Thomas MD [address] [place] [address] 05/06/2023 3:00 PM EDT Office Visit Dermatology [address] [place] [address] Ghazala Ramon PA-C [address] [place] [address] [place] [address] 07/07/2023 1:30 PM EDT Office Visit Nephrology [address] [place] [address] Allison Rivera PA-C [address] [place] [address] 08/12/2023 1:40 PM EDT Office Visit Family Medicine [address] [place] [phone] Lindsey Terrell MD [address] [place] [address] [place] [address] 10/08/2023 10:00 AM EDT Nurse Only Ancillary [address] [place] [address] [place], Nurse Annual Wellness [address] [place] [address] [place] [address] Health Maintenance Due Date Last Done Comments Hepatitis B (1 of 3 - Risk 3-dose series) 1996 Diabetic Foot Exam 04/15/2023 04/15/2022, 0 04/12/2021, 03/07/2020, Additional history exists CKD HGB USE SMARTSET 38098 07/09/202307/08, 09/17/2021, 08/06/2020, Additional history exists CKD PHOS USE SMARTSET 42147 07/09/202306/23, 09/17/2021, 08/06/2020, Additional history exists Diabetic [...] osteoarthrosis, lower leg documented in this encounter Administered Medications Inactive Administered Medications - up to 3 most recent administrations Medication Order MAR Action Action Date Dose Rate Site sodium hyaluronate (Gelsyn-3) 16.8 MG/2ML inj 16.8 mg 16.8 mg, Intra-Articular, ONCE, On Ashley 02/19/23 at 1330, For 1 dose Given 02/19/2023 3:43 PM EST 16.8 mg K nee Right sodium hyaluronate (Gelsyn-3) 16.8 MG/2ML inj 16.8 mg 16.8 mg, Intra-Articular, ONCE, On Ashley 02/19/23 at 1330, For 1 dose Given 02/19/2023 3:43 PM EST 16.8 mg K nee Left documented in this encounter Care Teams Mercantile Agent Relationship Specialty Start Date End Date Lindsey Terrell MD [address] [place] [address] [place] [address] PCP - General Family Medicine 11/24/17 documented as of this encounter
--- OUTSIDE RECORDS SUMMARY | 2023-05-16 12:59 | External Medical Summary ---
Author Name Unknown Address Unknown Organization K01:[facility] [place] [address] [place] [address] Laboratory Report Ordering Provider Test Date Status DARLYN SR 01/28/2023 08:40:45 Final Observation Date Value Abnormality Reference (Units) Status Hepatitis B virus surface Ab [Units/volume] in Serum or Plasma by Immunoassay 01/28/2023 08:40:45 <3.5 (mIU/mL) Final Hepatitis B virus surface Ab [Presence] in Serum by Immunoassay 01/28/2023 08:40:45 Negative Final HEPATITIS B SURFACE ANTIBODY, INTERPRETATION 01/28/2023 08:40:45 NOT immune to Hepatitis B Virus Final POSITIVE: >=11.5 mIU/mL
INDETERMINATE: 8.5-<11.5 mIU/mL
NEGATIVE: <8.5 mIU/mL Performing Location [facility] [place] [facility] [place] [address]
--- OUTSIDE RECORDS SUMMARY | 2023-05-16 12:59 | External Medical Summary ---
Author Name Unknown Address Unknown Organization [id number][place] [place] [address] [facility] [address] Laboratory Report Ordering Provider Test Date Status ORINDARLYN KIM 01/28/2023 08:40:45 Final Observation Date Value Abnormality Reference (Units ) Status HbA1C 01/28/2023 08:40:45 6.7 Above high normal 4. 0-5.6 (%) Final The use of HbA1c to monitor glycemic status is based on normal hemoglobin and HbA composition. This test should not be used in patients with abnormal hemoglobin that affects the half life of the red blood cell or the in vivo glycation rates. Glucose, estimated average 01/28/2023 08:40:45 146 Above high normal <126 (mg/dL) Leeroy fournier Performing Location [facility] [place] [address] [facility] [address] [facility] [place] [address]
--- OUTSIDE RECORDS SUMMARY | 2023-05-16 12:59 | External Medical Summary ---
Author Name Unknown Address Unknown Organization K01[place] [place] [address] [facility] [place] [address] Laboratory Report Ordering Provider Test Date Status DARLYN SR 01/28/2023 08:40:45 Final Observation Date Value Abnormality Reference (Units ) Status Triglyceride 01/28/2023 08:40:45 144 <=174 ( mg/dL) Final Triglyceride Reference Range s (mg/dL):
<150 Acceptable
150-174 Borderline high
175-499 High
>=500 Very high Cholesterol 01/28/2023 08:40:45 129 <200 (mg /dL) Final Total Cholesterol Reference Ranges (mg/dL):
<200 Desirable
200-239 Borderline high
>=240 High HDL 01/28/2023 08:40:45 38 Below low normal >39 (mg/dL) Final HDL Cholesterol Reference Ra nges (mg/dL):
>=60 High (Desirable)
<50 Low (Undesirable) For Females
<40 Low (Undesirable) For Males NON-HDL CHOLESTEROL 01/28/2023 08:40:45 91 <=159 (mg/dL) Final Non-HDL Cholesterol Referenc e Range (mg/dL):
<100 Target level for high risk ASCVD patient
<130 Optimal for general population
130-159 Near optimal for general population
160-189 Borderline High
190-219 High
>=220 Very High LDL, (calculated) 01/28/2023 08:40:45 62 <= 129 (mg/dL) Final LDL Cholesterol Reference Ra nges (mg/dL):
<70 Target level for high risk ASCVD patient
<100 Optimal for general population
100-129 Near optimal for general population
130-159 Borderline high
160-189 High
>=190 Very high Performing Location [facility] [place] [address] [facility] [place] [address]
--- OUTSIDE RECORDS SUMMARY | 2023-05-16 12:59 | External Medical Summary | Summary of Care ---
Author Name Unknown Organization [facility] Address [address] [facility] [place] [address] Phone [phone] Care Team Providers Care Lath Hand Name Role Phone Lindsey Terrell MD Primary Care Prov ider Encounter Details Date Type Department Care Team (Late st Contact Info) Description 01/28/2023 10:00 AM EST Immunization Ancillary [place] [address] [place] [address] [place], Covid19 Vaccine [address] [place] [address] Arrived Allergies Active Allergy Reactions Criticality Noted Date Comments Liraglutide Nausea/vomiting 06/01/2018 documented as of this encounter (statuses as of 01/28/2023) Medications Medication Sig Dispensed Refills Start Date End Date Status aspirin enteric coated 81 MG TBECIndications:Co ronary artery disease involving [place] coronary artery of [place] heart without angina pectoris Take 1 Tablet [...] Oral Tablet (Lopressor)Indicat ions:Coronary artery disease involving [place] coronary artery of [place] heart without angina pectoris Take 1 Tablet [...] Oral Tablet (Lipitor)Indicatio ns:Coronary artery disease involving [place] coronary artery of [place] heart without angina pectoris,Dyslipide dieter, goal LDL below 100 Take 1 Tablet by mouth daily. 100 Tablet 1 12/22/2022 Active Finasteride 5 MG Oral Tablet (Proscar) Take 1 Tablet by mouth in the morning. 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 Generalized OA 01/10/2013 ADVANCE [...] as of this encounter (statuses as of 01/28/2023) Resolved Problems Problem Noted Date Diagnosed Date [...] BMI 30.0-30.9,adult 12/13/19 16 Coronary atherosclerosis of [place] coronary artery 11/15/2014 Osteoarthritis of knees, bilateral 12/25/2016 documented as of this encounter (statuses as of 01/28/2023) Immunizations Name Administration Dates Next Due COVID-19 [...] (Prevnar) 07/18/2014 Pneumococcal Polysaccharide PPV23 (Pneumovax) 09/01/2018 SEASONAL INFLUENZA, PF, 6 M & Above, IM , (FLULAVAL or FLUZONE) 12/25/2019,11/19/2017,12/25/2016 Seasonal Influenza, Quadriva lent Hd (Fluzone [...] on file documented as of this encounter Plan of Treatment Upcoming Encounters Date Type Department Care Team (Late st Contact Info) Description 02/04/2023 2:40 PM EST Office Visit Dermatology [address] [place] [address] Ghazala Ramon PA-C [address] [place] [address] [place] [address] 02/12/2023 1:00 PM EST Office Visit Orthopaedics [address] [place] [phone] Aamir Thomas MD [address] [place] [address] 02/19/2023 1:00 PM EST Office Visit Orthopaedics [address] [phone] Aamir Thomas MD [address] [place] [address] 02/26/2023 1:00 PM EST Office Visit Orthopaedics [address] [phone] Aamir Thomas MD [address] [place] [address] 05/06/2023 3:00 PM EDT Office Visit Dermatology [address] [place] [address] Ghazala Ramon PA-C [address] [place] [address] [place] [address] 07/07/2023 1:30 PM EDT Office Visit Nephrology [address] [place] [address] ZemaitisAllison PA-C [address] [facility] [place] [address] 10/08/2023 10:00 AM EDT Nurse Only Ancillary [address] [place] [address] Shawnaalley, Nurse Annual [address] [place] [address] Health Maintenance Due Date Last Done Comments Hepatitis B (1 of 3 - Risk 3-dose series) 1996 HbA1c 01/08/2023 07/08/2022, 0707/2021, 11/20/2020, Additional history exists Diabetic Foot Exam 04/15/2023 04/15/2022, 0 04/12/2021, 03/07/2020, Additional history exists CKD HGB USE SMARTSET 76395 07/09/202307/08, 09/17/2021, 08/06/2020, Additional history exists CKD PHOS USE SMARTSET 20721 07/09/202306/23, 09/17/2021, 08/06/2020, Additional history exists Diabetic Eye Exam 07/26/2023 07/25/2022, , 11/26/2020, Additional history exists Depression Screening 10/07/2023 10/06/2022 [...] filedocumented as of this encounter Care Teams Lath Hand Relationship Specialty Start Date End Date Lindsey Terrell MD [address] [place] [address] [place] [address] PCP - General Family Medicine 11/24/17 documented as of this encounter
--- OUTSIDE RECORDS SUMMARY | 2023-05-16 12:59 | External Medical Summary | Summary of Care ---
Author Name Unknown Organization [facility] Address [address] [place] [address] Phone [phone] Care Team Providers Care Mix Chemist Name Role Phone Orin Sims MD Primary Care Prov ider Reason for Visit * Reason Onset Date Comments Medication Refill 03/16/2023 Encounter Details Date Type Department Care Team (Late st Contact Info) Description 03/16/2023 Refill Family Medicine [address] [phone] Orin Sims MD [address] [place] [address] BPH without obstruction/lower urinary tract symptoms* Allergies Active Allergy Reactions Criticality Noted Date Comments Liraglutide Nausea/vomiting 06/01/2018 documented as of this encounter (statuses as of 03/16/2023) Medications Medication Sig Dispensed Refills Start Date End Date Status aspirin enteric coated 81 MG TBECIndications: Coronary artery disease involving [place] coronary artery of [place] heart without angina pectoris Take 1 Tablet [...] Oral Tablet (Lopressor)Indic ations:Coronary artery disease involving [place] coronary artery of [place] heart without angina pectoris Take 1 Tablet [...] Oral Tablet (Lipitor)Indicat ions:Coronary artery disease involving [place] coronary artery of [place] heart without angina pectoris,Dyslipi demia, goal LDL below 100 Take 1 Tablet by mouth daily. 100 Tablet 1 12/22/2022 Active Finasteride 5 MG Oral Tablet (Proscar)Indicat ions:BPH without obstruction/lowe r urinary tract symptoms Take 1 Tablet by mouth in the morning. 100 Tablet 1 03/16/2023 Active Finasteride 5 MG Oral Tablet (Proscar) Take 1 Tablet by mouth in the morning. 100 Tablet 1 12/22/2022 4 Discontinue d(Refill) documented as of this encounter (statuses as of 03/16/2023) Active Problems Problem Noted Date Diagnosed Date [...] 228 lb Coronary artery disease invo lving [place] coronary artery without angina pectoris 11/15/2014 Overview: H/o [place] medically managed 1997. Generalized OA 01/10/2013 ADVANCE [...] as of this encounter (statuses as of 03/16/2023) Resolved Problems Problem Noted Date Diagnosed Date [...] BMI 30.0-30.9,adult 12/13/19 16 Coronary atherosclerosis of [place] coronary artery 11/15/2014 Osteoarthritis of knees, bilateral 12/25/2016 documented as of this encounter (statuses as of 03/16/2023) Immunizations Name Administration Dates Next Due COVID-19 [...] Telephone Encounter - Orin Sims MD - 03/16/2023 1:46 PM EST Signed Prescriptions: Disp Refills Finasteride 5 MG Oral Tablet (Proscar) 100 Ta*1 Sig: Take 1 Tablet by mouth in the morning. Authorizing Provider: ORIN SIMS * Telephone Encounter - Ana Laura White CMA - 03/16/2023 1:17 PM ESTPending Prescriptions: Disp Refills Finasteride 5 MG Oral Tablet (Proscar) 100 Ta*1 Sig: Take 1 Tablet by mouth in the morning. * Telephone Encounter - Bhavna Simmons OSA - 03/16/2023 1:13 PM EST Did you pend patient's preferred pharmacy and medication before forwarding?no Pharmacy: [facility] Pending Prescriptions: Disp Refills Finasteride 5 MG Oral Tablet (Proscar) 100 Ta*1 Sig: Take 1 Tablet by mouth in the morning. Last Visit: 01/28/2023 (in office), Visit date not found (telemedicine) Next Visit: 08/12/2023 If no future appointments scheduled, and last appointment is greater than a year ago, please schedule patient for a follow-up appointment Last date the medication was ordered: 12.22.2022 Is this request for a controlled substance?No [...] 04/09/2023 1:00 PM EST Office Visit Orthopaedics [address] [place] [phone] Aamir Thomas MD [address] [place] [address] 05/06/2023 3:00 PM EDT Office Visit Dermatology [address] [place] [address] Ghazala Ramon PA-C [address] [place] [address] [place] [address] 07/07/2023 1:30 PM EDT Office Visit Nephrology [address] [place] [address] Allison Rivera [facility] [address] [facility] [address] 08/12/2023 1:40 PM EDT Office Visit Family Medicine [address] [place] [phone] Orin Sims MD [address] [place] [address] [place] [address] 10/08/2023 10:00 AM EDT Nurse Only Ancillary [address] [place] [address] [place], Nurse Annual Wellness [address] [place] [address] [place] [address] Health Maintenance Due Date Last Done Comments Hepatitis B (1 of 3 - Risk 3-dose series) 1996 Diabetic Foot Exam 04/15/2023 04/15/2022, 0 04/12/2021, 03/07/2020, Additional history exists CKD HGB USE SMARTSET 18951 07/09/202307/08, 09/17/2021, 08/06/2020, Additional history exists CKD PHOS USE SMARTSET 34361 07/09/202306/23, 09/17/2021, 08/06/2020, Additional history exists Diabetic [...] as of this encounter Visit Diagnoses Diagnosis BPH without obstruction/lower urinary tract symptoms- Primary Hypertrophy of prostate without urinary obstruction and other lower urinary tract symptoms (LUTS) documented in this encounter Care Teams Mix Chemist Relationship Specialty Start Date End Date Orin Sims MD [address] [place] [address] [place] [address] PCP - General Family Medicine 11/24/17 documented as of this encounter
--- OUTSIDE RECORDS SUMMARY | 2023-05-16 12:59 | External Medical Summary | Summary of Care ---
Author Name Unknown Organization [facility] Address [address] [facility] [place] [address] Phone [phone] Care Team Providers Care Case Technician Name Role Phone Lindsey Terrell MD Primary Care Prov ider Reason for Visit * Reason Onset Date Comments Medication Administration 01/28/2023 Flu an d/or Pneumo Inj Follow Up Encounter Details Date Type Department Care Team (Latest Contact Info) Description 01/28/2023 8:00 AM EST Office Visit Family Medicine [address] [place] [phone] Lindsey Terrell MD [address] [place] [address] [place] [address] Type 2 diabetes mellitus with stage 3b chronic kidney disease, without long-term current use of insulin (HCC)*; Need for prophylactic vaccination and inoculation against influenza; Secondary hyperparathyroidism of renal origin (HCC); Hypertensive kidney disease with stage 3b chronic kidney disease (HCC); Hypertension goal BP (blood pressure) < 130/80; Renal osteodystrophy; Dyslipidemia, goal LDL below 100; Need for hepatitis B vaccination Allergies Active Allergy Reactions Criticality Noted Date Comments Liraglutide Nausea/vomiting 06/01/2018 documented as of this encounter (statuses as of 01/28/2023) Medications Medication Sig Dispensed Refills Start Date End Date Status aspirin enteric coated 81 MG TBECIndications:Co ronary artery disease involving [place] coronary artery of [place] heart without angina pectoris Take 1 Tablet [...] Oral Tablet (Lopressor)Indicat ions:Coronary artery disease involving [place] coronary artery of [place] heart without angina pectoris Take 1 Tablet [...] Oral Tablet (Lipitor)Indicatio ns:Coronary artery disease involving [place] coronary artery of [place] heart without angina pectoris,Dyslipide dieter, goal LDL [...] 228 lb Coronary artery disease 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 Generalized OA 01/10/2013 ADVANCE [...] BMI 30.0-30.9,adult 12/13/19 16 Coronary atherosclerosis of [place] coronary artery 11/15/2014 Osteoarthritis of knees, bilateral 12/25/2016 documented as of this encounter (statuses as of 01/28/2023) Immunizations Name Administration Dates Next Due COVID-19 mRNA, LNP-s, No Pre serve, 2-Dose Series (Moderna) 05/25/2020,04/27/2020 COVID-19, LNP-s, No Preserve , Don-sucrose, Ages 12+ (Pfizer) 10/15/2021 COVID-19, MRNA-LNP, 23-24, P F, 30 MCG/0.3 mL, 12 YRS AND ABOVE, IM ([facility]) 01/28/2023 COVID-19, mRNA, LNP-s, PF, B ooster, [...] 1 Q uit: 02/24/1959 Smokeless Tobacco: Never Tobacco Cessation:Counseling Given: Not Answered Alcohol Use Standard Drinks/Week Comments No 0 [...] on file documented as of this encounter Last Filed Vital Signs Vital Sign Reading Time Taken Comments Blood Pressure 132/68 01/28/2023 8:03 AM EST Pulse 86 01/28/2023 8:03 AM EST Temperature 36.3 C (97.4 F) 01/28/2023 8:03 AM ES T Respiratory Rate - - Oxygen Saturation 97% 01/28/2023 8:03 AM EST Inhaled Oxygen Concentration - - Weight 85.2 kg (187 lb 12.8 oz) 01/28/2023 8:03 AM EST Height - - Body Mass Index 28.98 10/06/2022 10:03 AM EDT documented in this encounter Progress Notes * Lindsey Terrell MD - 01/28/2023 8:15 AM EST Subjective Aquilino Rashid is a 86 year old male. Chief Complaint Patient presents with Medication Administration Flu and/or Pneumo Inj Follow Up HPI: Here today for routine chronic disease management and preventive care. Bilat knee pain. Receiving injections per Ortho which provides some relief. DM2 with CKD3b. Diet controlled. Last A1C 7.5. GFR 48. Denies excess thirst or fatigue. No blood inurine or sediment, no pain with urination. CKD/ secondary hyperparathyroidism. Dyslipidemia/ CAD. Last LDL 48. Denies CP and palpitations. H/o skin cancer. Had Mohs for right ear SCC and now follows closely with derm.. Prev: UTD with vaccines. Due for labs. PMH: Patient Active Problem List Diagnosis Code BPH without obstruction/lower urinary tract symptoms N40.0 Type 2 diabetes mellitus with hemoglobin A1c goal of less than 7.0% (HCC) E11.9 Dyslipidemia, goal LDL below 100 E78.5 ADVANCE DIRECTIVE INFORMATION Generalized OA M15.9 Coronary artery disease involving [place] coronary artery without angina pectoris I25.10 BMI 34.0-34.9,adult Z68.34 Primary osteoarthritis of both knees M17.0 Aortic valve sclerosis I35.8 History of adenomatous polyp of colon Z86.010 Localized edema R60.0 Chronic kidney disease, stage 3b (HCC) N18.32 Type 2 diabetes mellitus with stage 3b chronic kidney disease, without long-term current use of insulin (HCC) E11.22, N18.32 Hx of nonmelanoma skin cancer Z85.828 Iron deficiency anemia D50.9 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 90 Tablet 1 Lisinopril 5 MG Oral Tablet (Prinivil) Take 1 Tablet by mouth in the morning. 90 Tablet 3 Vitamin D3 25 MCG (1000 UT) Oral Tablet (Vitamin D3) Take 1 Tablet by mouth in the morning. Atorvastatin Calcium 40 MG Oral Tablet (Lipitor) Take 1 Tablet by mouth daily. 100 Tablet 1 Finasteride 5 MG Oral Tablet (Proscar) Take 1 Tablet by mouth in the morning. 100 Tablet 1 Meclizine HCl 25 MG Oral Tablet (Antivert) Take 1 Tablet by mouth 3 times a day as needed for Dizziness. (Patient not taking: Reported on 01/28/2023) 30 Tablet 1 No current facility-administered medications for this visit. Review of patient's allergies indicates: Allergen Reactions Victoza [Liraglutide] Nausea/vomiting Objective BP 132/68 | Pulse 86 | Temp 36.3 C (97.4 F) (Tympanic) | Wt 85.2 kg (187 lb 12.8 oz) | SpO2 97%| BMI 28.98 kg/m | BSA 2.01 m Physical Exam Constitutional: Appearance: Normal appearance. Cardiovascular: Rate and Rhythm: Normal rate and regular rhythm. Pulses: Normal pulses. Pulmonary: Effort: Pulmonary effort is normal. Breath sounds: Normal breath sounds. Abdominal: Palpations: Abdomen is soft. Musculoskeletal: General: Tenderness present. Normal range of motion. Cervical back: Normal range of motion and neck supple. Comments: + joint line tenderness bilat knees, + effusions noted Skin: General: Skin is warm and dry. Neurological: General: No focal deficit present. Mental Status: He is alert and oriented to person, place, and time. Psychiatric: Mood and Affect: Mood normal. 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 He agrees. CKD stable BP well managed Lindsey Cedeño MD documented in this encounter Nursing Notes * Bethany Lee LPN - 01/28/2023 8:03 AM EST Chief Complaint Patient presents with Medication Administration Flu and/or Pneumo Inj Follow Up No concerns today The patient has been properly identified by confirmation of name and date of . documented in this encounter Plan of Treatment Upcoming Encounters Date Type Department Care Team (Late st Contact Info) Description 02/04/2023 2:40 PM EST Office Visit Dermatology [address] [place] [address] Ghazala Ramon PA-C [address] [place] [address] [place] [address] 02/12/2023 1:00 PM EST Office Visit Orthopaedics [address] [place] [phone] Aamir Thomas MD [address] [place] [address] 02/19/2023 1:00 PM EST Office Visit Orthopaedics [address] [place] [phone] Aamir Thomas MD [address] [place] [address] 02/26/2023 1:00 PM EST Office Visit Orthopaedics [address] [place] [phone] Aamir Thomas MD [address] [place] [address] 05/06/2023 3:00 PM EDT Office Visit Dermatology [address] [place] [address] Ghazala Ramon PA-C [address] [place] [address] [place] [address] 07/07/2023 1:30 PM EDT Office Visit Nephrology [address] [place] [address] Allison Rivera [facility]-C [address] [facility] [address] 08/12/2023 1:40 PM EDT Office Visit Family Medicine [address] [place] [phone] Lindsey Terrell MD [address] [place] [address] [place] [address] 10/08/2023 10:00 AM EDT Nurse Only Ancillary [address] [place] [address] Karthikey[place], Nurse [address] [place] [address] Pending Results Name Type Priority Associated Diagnoses Date /Time HEMOGLOBIN A1C Lab Routine Type 2 diabetes mellitus with stage 3b chronic kidney disease, without long-term current use of insulin (HCC) 01/28/2023 8:40 AM EST COMPREHENSIVE METABOLIC PANEL Lab Routine Dyslipidemia, goal LDL below 100 01/28/2023 8:40 AM EST LIPID PANEL WITH DIRECT LDL IF TG IS HIGH Lab Routine Dyslipidemia, goal LDL below 100 01/28/2023 8:40 AM EST HEPATITIS B SURFACE ANTIBODY Lab Routine Need for hepatitis B vaccination 01/28/2023 8:40 AM EST Scheduled Orders Name Type Priority Associated Diagnoses Orde r Schedule HEMOGLOBIN A1C Lab Routine Type 2 diabetes mellitus with stage 3b chronic kidney disease, without long-term current use of insulin (HCC) Expected: 01/28/2023 (Approximate), Expires: 02/29/2024 COMPREHENSIVE METABOLIC PANEL Lab Routine Dyslipidemia, goal LDL below 100 Expected: 01/28/2023 (Approximate), Expires: 01/28/2024 LIPID PANEL WITH DIRECT LDL IF TG IS HIGH Lab Routine Dyslipidemia, goal LDL below 100 Expected: 01/28/2023, Expires: 01/29/2024 HEPATITIS B SURFACE ANTIBODY Lab Routine Need for hepatitis B vaccination Expected: 01/28/2023 (Approximate), Expires: 01/28/2024 Health Maintenance Due Date Last Done Comments Hepatitis B (1 of 3 - Risk 3-dose series) 1996 HbA1c 01/08/2023 07/08/2022, 08/24, 11/20/2020, Additional history exists Diabetic Foot Exam 04/15/2023 04/15/2022, 0 04/12/2021, 03/07/2020, Additional history exists CKD HGB USE SMARTSET 43843 07/09/202307/08, 09/17/2021, 08/06/2020, Additional history exists CKD PHOS USE SMARTSET 21826 07/09/202306/23, 09/17/2021, 08/06/2020, Additional history exists Diabetic [...] as of this encounter Visit Diagnoses Diagnosis Type 2 diabetes mellitus with stage 3b chronic kidney disease, without long-term current use of insulin (HCC)- Primary Need for prophylactic vaccination and inoculation against influenza Secondary hyperparathyroidism of renal origin (HCC) Secondary hyperparathyroidism (of renal origin) Hypertensive kidney disease with stage 3b chronic kidney disease (HCC) Hypertension goal BP (blood pressure) < 130/80 Unspecified essential hypertension Renal osteodystrophy Dyslipidemia, goal LDL below 100 Other and unspecified hyperlipidemia Need for hepatitis B vaccination Need for prophylactic vaccination and inoculation against viral hepatitis documented in this encounter Care Teams Case Technician Relationship Specialty Start Date End Date Lindsey Terrell MD [address] [place] [address] [place] [phone] PCP - General Family Medicine 11/24/17 documented as of this encounter"
--- OUTSIDE RECORDS SUMMARY | 2023-05-16 12:59 | External Medical Summary | Summary of Care ---
Author Name Unknown Organization [facility] Address [address] [place] [address] Phone [phone] Care Team Providers Care Interactive Multimedia Designer Name Role Phone Lindsey Terrell MD Primary Care Prov ider Reason for Visit * Reason Comments Follow Up Bilateral knee #3 ge lsyn injections Encounter Details Date Type Department Care Team (Late st Contact Info) Description 02/26/2023 1:00 PM EST Office Visit Orthopaedics [address] [phone] [facility]amir Thomas [facility] [address] [facility] [address] Chronic pain of both knees* Allergies Active Allergy Reactions Criticality Noted Date Comments Liraglutide Nausea/vomiting 06/01/2018 documented as of this encounter (statuses as of 02/26/2023) Medications Medication Sig Dispensed Refills Start Date End Date Status aspirin enteric coated 81 MG TBECIndications:Co ronary artery disease involving [place] coronary artery of [place] heart without angina pectoris Take 1 Tablet [...] Oral Tablet (Lopressor)Indicat ions:Coronary artery disease involving [place] coronary artery of [place] heart without angina pectoris Take 1 Tablet [...] Oral Tablet (Lipitor)Indicatio ns:Coronary artery disease involving [place] coronary artery of [place] heart without angina pectoris,Dyslipide dieter, goal LDL below 100 Take 1 Tablet by mouth daily. 100 Tablet 1 12/22/2022 Active Finasteride 5 MG Oral Tablet (Proscar) Take 1 Tablet by mouth in the morning. 100 Tablet 1 12/22/2022 Active Hospital, Clinic, or Other Facility Administered Medication Ordered Dose Route Frequency Start Date End Date Status sodium hyaluronate (Gelsyn-3) 16.8 MG/2ML inj 16.8 mgIndications:Chronic pain of both knees 16.8 mg IX ONCE 02/26/2023 02/26/2023 Ended sodium hyaluronate (Gelsyn-3) 16.8 MG/2ML inj 16.8 mgIndications:Chronic pain of both knees 16.8 mg IX ONCE 02/26/2023 02/26/2023 Ended documented as of this encounter (statuses as of 02/26/2023) Active Problems Problem Noted Date Diagnosed Date [...] 228 lb Coronary artery disease invo lving [place] coronary artery without angina pectoris 11/15/2014 Overview: H/o [place] medically managed 1997. Generalized OA 01/10/2013 ADVANCE [...] as of this encounter (statuses as of 02/26/2023) Resolved Problems Problem Noted Date Diagnosed Date [...] BMI 30.0-30.9,adult 12/13/19 16 Coronary atherosclerosis of [place] coronary artery 11/15/2014 Osteoarthritis of knees, bilateral 12/25/2016 documented as of this encounter (statuses as of 02/26/2023) Immunizations Name Administration Dates Next Due COVID-19 mRNA, LNP-s, No Pre serve, 2-Dose Series (Moderna) 05/25/2020,04/27/2020 COVID-19, LNP-s, No Preserve , Don-sucrose, Ages 12+ ([employer]) 10/15/2021 COVID-19, MRNA-LNP, 23-24, P F, 30 [...] Progress Notes * Aamir Thomas MD - 02/26/2023 1:00 PM EST t Name: Aquilino Rashid Diagnosis: OA bilateral knee. The patient is here for the THIRD of a series of Gelsyn injections. There [...] this well. Assessment: OA BILATERAL knee. Plan: Discussed follow-up options. In office follow-up to be scheduled in 6-8 weeks as he would be eligible for steroid injections at that time. He will cancel if he does not feel he needs injections. He is aware that the viscosupplementation injections can be done every 6 months if needed. Aamir Thomas MD Primary Care Sports Medicine Orthopaedics [address] [phone] documented in this encounter Nursing Notes * Yamilka Christy, RN - 02/26/2023 1:13 PM EST F/U 3rd injection B/L knee gelysn. Denies pain today.Thursday's pain was off the chart. Yamilka Christy RN documented in this encounter Plan of Treatment Upcoming Encounters Date Type Department Care Team (Late st Contact Info) Description 04/09/2023 1:00 PM EST Office Visit Orthopaedics [address] [phone] Aamir Thomas MD [address] [place] [address] 05/06/2023 3:00 PM EDT Office Visit Dermatology [address] [place] [address] Ghazala Ramon PA-C [address] [place] [address] [place] [address] 07/07/2023 1:30 PM EDT Office Visit Nephrology [address] [place] [address] Allison Rivera [facility]-C [address] [facility] [address] 08/12/2023 1:40 PM EDT Office Visit Family Medicine [address] [place] [phone] Lindsey Terrell MD [address] [place] [address] [place] [address] 10/08/2023 10:00 AM EDT Nurse Only Ancillary [address] [place] [address] [place], Nurse Annual Wellness [address] [place] [address] [place] [address] Health Maintenance Due Date Last Done Comments Hepatitis B (1 of 3 - Risk 3-dose series) 1996 Diabetic Foot Exam 04/15/2023 04/15/2022, 0 04/12/2021, 03/07/2020, Additional history exists CKD HGB USE SMARTSET 46597 07/09/202307/08, 09/17/2021, 08/06/2020, Additional history exists CKD PHOS USE SMARTSET 98197 07/09/202306/23, 09/17/2021, 08/06/2020, Additional history exists Diabetic [...] as of this encounter Visit Diagnoses Diagnosis Chronic pain of both knees- Primary documented in this encounter Administered Medications Inactive Administered Medications - up to 3 most recent administrations Medication Order MAR Action Action Date Dose Rate Site sodium hyaluronate (Gelsyn-3) 16.8 MG/2ML inj 16.8 mg 16.8 mg, Intra-Articular, ONCE, On Ashley 02/26/23 at 1345, For 1 dose Given 02/26/2023 1:28 PM EST 16.8 mg Knee Right sodium hyaluronate (Gelsyn-3) 16.8 MG/2ML inj 16.8 mg 16.8 mg, Intra-Articular, ONCE, On Ashley 02/26/23 at 1345, For 1 dose Given 02/26/2023 1:28 PM EST 16.8 mg Knee Left documented in this encounter Care Teams Interactive Multimedia Designer Relationship Specialty Start Date End Date Erasmo Mobley, Lindsey Jordyn, MD [address] [place] [address] [place] [phone] PCP - General Family Medicine 11/24/17 documented as of this encounter
--- OUTSIDE RECORDS SUMMARY | 2023-05-16 12:59 | External Medical Summary | Summary of Care ---
Author Name Unknown Organization [facility] Address [address] [facility] [place] [address] Phone [phone] Care Team Providers Care Quality Control Coordinator Name Role Phone Lindsey Terrell MD Primary Care Prov ider Reason for Visit * Reason Comments Outpatient Testing Encounter Details Date Type Department Care Team (Late st Contact Info) Description 01/28/2023 8:40 AM EST Laboratory Laboratory [address] [place] [phone] [place] [address] Type 2 diabetes mellitus with stage 3b chronic kidney disease, without long-term current use of insulin (HCC); Dyslipidemia, goal LDL below 100; Need for hepatitis B vaccination Allergies Active Allergy Reactions Criticality Noted Date Comments Liraglutide Nausea/vomiting 06/01/2018 documented as of this encounter (statuses as of 01/28/2023) Medications Medication Sig Dispensed Refills Start Date End Date Status aspirin enteric coated 81 MG TBECIndications:Co ronary artery disease involving [place] coronary artery of [place] heart without angina pectoris Take 1 Tablet [...] Oral Tablet (Lopressor)Indicat ions:Coronary artery disease involving [place] coronary artery of [place] heart without angina pectoris Take 1 Tablet [...] Oral Tablet (Lipitor)Indicatio ns:Coronary artery disease involving [place] coronary artery of [place] heart without angina pectoris,Dyslipide dieter, goal LDL [...] 228 lb 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 Generalized OA 01/10/2013 ADVANCE [...] BMI 30.0-30.9,adult 12/13/19 16 Coronary atherosclerosis of [place] coronary artery 11/15/2014 Osteoarthritis of knees, bilateral [...] Description 01/28/2023 10:00 AM EST Immunization Ancillary Shae You [address] [place] [address] [place] [address] Yemi, Covid19 Vaccine [address] [place] [address] Arrived 02/04/2023 2:40 PM EST Office Visit Dermatology [address] [place] [address] Ghazala Ramon PA-C [address] [place] [address] [place] [address] 02/12/2023 1:00 PM EST Office Visit Orthopaedics [address] [phone] Aamir Thomas MD [address] [place] [address] 02/19/2023 1:00 PM EST Office Visit Orthopaedics [address] [phone] Aamir Thomas MD [address] [place] [address] 02/26/2023 1:00 PM EST Office Visit Orthopaedics [address] [phone] Aamir Thomas MD [address] [place] [address] 05/06/2023 3:00 PM EDT Office Visit Dermatology [address] [place] [address] Ghazala Ramon PA-C [address] [place] [address] [place] [address] 07/07/2023 1:30 PM EDT Office Visit Nephrology [address] [place] [address] ZeAllison ramírez PA-C [address] [place] [address] 08/12/2023 1:40 PM EDT Office Visit Family Medicine [address] [place] [phone] Lindsey Terrell MD [address] [place] [address] [place] [address] 10/08/2023 10:00 AM EDT Nurse Only Ancillary [address] [place] [address] Karthikeyan, Nurse Annual Wellness [address] [place] [address] [place] [address] Pending Results Name Type Priority Associated Diagnoses [...] hepatitis B vaccination 01/28/2023 8:40 AM EST Health Maintenance Due Date Last Done Comments Hepatitis B (1 of 3 - Risk 3-dose series) 1996 HbA1c 01/08/2023 07/08/2022, 08/24, 11/20/2020, Additional history exists Diabetic Foot Exam 04/15/2023 04/15/2022, 0 04/12/2021, 03/07/2020, Additional history exists CKD HGB USE SMARTSET 66469 07/09/202307/08, 09/17/2021, 08/06/2020, Additional history exists CKD PHOS USE SMARTSET 18441 07/09/202306/23, 09/17/2021, 08/06/2020, Additional history exists Diabetic [...] without long-term current use of insulin (HCC) Dyslipidemia, goal LDL below 100 Other and unspecified hyperlipidemia Need for hepatitis B vaccination Need for prophylactic vaccination and inoculation against viral hepatitis documented in this encounter Care Teams Quality Control Coordinator Relationship Specialty Start Date End Date Lindsey Terrell MD [address] [place] [address] [place] [address] PCP - General Family Medicine 11/24/17 documented as of this encounter
--- OUTSIDE RECORDS SUMMARY | 2023-05-16 12:59 | External Medical Summary | Summary of Care ---
Author Name Unknown Organization [facility] Address [address] [place] [address] Phone [phone] Care Team Providers Care Child Care Attendant School Name Role Phone Lindsey Terrell MD Primary Care Prov ider Reason for Referral * Evaluate & Treat - Unlimited Visits (Within 10 days (routine)) - Authorized Specialty Diagnoses / Procedures Referred By Harleen alcazar Referred To Contact Pain Management / Pain Medicine Diagnoses Primary osteoarthritis of both knees Aamir Thomas MD [address] [place] [address] Referral ID Status Reason Start Date Expiration Date Visits Requested Visits Authorized [id number] Authorized Specialty Services Required 04/09/2023 999 999 Question Answer Referral Priority Within 10 days (routine) Where should this appointment be scheduled? [facility] Reason for referral? Interventional Pain Management - (Injection) What condition is the patient being referred for? Hip/Shoulder/Knee What is the preferred location to have this test performed? [facility] Comments To Dr. Thomas (pain management) [...] pain if not done previously. Fax No. [facility] [phone] or contact desk interviewer [phone] Fax No. [facility] [phone] or contact desk interviewer [phone] Fax No. [facility] [phone] or contact desk interviewer [phone] Reason for Visit * Reason Comments Follow Up Bilateral knee Encounter Details Date Type Department Care Team (Latest Contact Info) Description 04/09/2023 1:00 PM EST Office Visit Orthopaedics [address] [phone] [facility]ir [facility] [address] [facility] [id number] Primary osteoarthritis of both knees* Allergies Active Allergy Reactions Criticality Noted Date Comments Liraglutide Nausea/vomiting 06/01/2018 documented as of this encounter (statuses as of 04/09/2023) Medications Medication Sig Dispensed Refills Start Date End Date Status aspirin enteric coated 81 MG TBECIndications:Co ronary artery disease involving [place] coronary artery of [place] heart without angina pectoris Take 1 Tablet [...] Oral Tablet (Lopressor)Indicat ions:Coronary artery disease involving [place] coronary artery of [place] heart without angina pectoris Take 1 Tablet [...] Oral Tablet (Lipitor)Indicatio ns:Coronary artery disease involving [place] coronary artery of [place] heart without angina pectoris,Dyslipide dieter, goal LDL below 100 Take 1 Tablet by mouth daily. 100 Tablet 1 03/30/2023 Active Hospital, Clinic, or Other Facility Administered Medication Ordered Dose Route Frequency Start Date End Date Status lidocaine 1 % inj 10 mgIndications:Primary osteoarthritis of both knees 10 mg IX ONCE 04/09/2023 04/09/2023 Ended lidocaine 1 % inj 10 mgIndications:Primary osteoarthritis of both knees 10 mg IX ONCE 04/09/2023 04/09/2023 Ended Triamcinolone Acetonide (Kenalog) 40 MG/ML inj 40 mgIndications:Primary osteoarthritis of both knees 40 mg IX ONCE 04/09/2023 04/09/2023 Ended Triamcinolone Acetonide (Kenalog) 40 MG/ML inj 40 mgIndications:Primary osteoarthritis of both knees 40 mg IX ONCE 04/09/2023 04/09/2023 Ended documented as of this encounter (statuses [...] 228 lb Coronary artery disease invo lving [place] coronary artery without angina pectoris 11/15/2014 Overview: H/o [place] medically managed 1997. Generalized OA 01/10/2013 ADVANCE [...] BMI 30.0-30.9,adult 12/13/19 16 Coronary atherosclerosis of [place] coronary artery 11/15/2014 Osteoarthritis of knees, bilateral [...] - 04/09/2023 1:00 PM EST Aquilino Rashid [id number] Aquilino Rashid is a 86 year old male who presents for f/u to [facility] Orthopa[facility]ics [facility] Medicine for bilateral [...] and also injection 3-4 years ago at [facility] Last A1C was 09/17/2021 6.7 Patient denies [...] kidney disease) stage 3, GFR 30-59 ml/min ([facility]) 01/09/14 GFR 52.1 Coronary atherosclerosis of [place] coronary artery DM type 2 causing CKD stage 3 ([facility]) DM type 2, goal A1c below 7 [...] Thomas MD Primary Care Sports Medicine Orthopaedics [address] [phone] documented in this encounter Nursing Notes * [...] 05/06/2023 3:00 PM EDT Office Visit Dermatology [address] [place] [address] Gahzala Ramon PA-C [address] [place] [address] [place] [address] 05/26/2023 1:30 PM EDT Office Visit Interventional [facility] Center, [facility] [address] [place] [phone] Alen Thomas DO [address] [place] [phone] 07/07/2023 1:30 PM EDT Office Visit Nephrology [address] [place] [address] Allison Rivera PA-C [address] [place] [address] 08/12/2023 1:40 PM EDT Office Visit Family Medicine [address] [place] [phone] Lindsey Terrell MD [address] [place] [address] [place] [address] 10/08/2023 10:00 AM EDT Nurse Only Ancillary [address] [place] [address] [place], Nurse Annual Wellness [address] [place] [address] [place] [address] Scheduled Referrals Name Type Priority Associated Diagnoses Orde r Schedule PAIN MEDICINE REFERRAL OP Referral Within 10 days (routine) Primary osteoarthritis of both knees Ordered: 04/09/2023 Health Maintenance Due Date Last Done Comments Hepatitis B (1 of 3 - Risk 3-dose series) 1996 Diabetic Foot Exam 04/15/2023 04/15/2022, 0 04/12/2021, 03/07/2020, Additional history exists CKD HGB USE SMARTSET 05435 07/09/202307/08, 09/17/2021, 08/06/2020, Additional history exists CKD PHOS USE SMARTSET 94091 07/09/202306/23, 09/17/2021, 08/06/2020, Additional history exists Diabetic [...] MAR Action Action Date Dose Rate Site lidocaine 1 % inj 10 mg 10 mg (1 mL), Intra-Articular, ONCE, On Ashley 04/09/23 at 1415, For 1 dose Given 04/09/2023 2:48 PM EST 10 mg Knee Right lidocaine 1 % inj 10 mg 10 mg (1 mL), Intra-Articular, ONCE, On [place] 04/09/23 at 1415, For 1 dose Given 04/09/2023 2:47 PM EST 10 mg Knee Left Triamcinolone Acetonide (Kenalog) 40 MG/ML inj 40 mg 40 mg, Intra-Articular, ONCE, On [place] 04/09/23 at 1415, For 1 dose Given 04/09/2023 2:48 PM EST 40 mg Knee Right Triamcinolone Acetonide (Kenalog) 40 MG/ML inj 40 mg 40 mg, Intra-Articular, ONCE, On [place] 04/09/23 at 1415, For 1 dose Given 04/09/2023 2:47 PM EST 40 mg Knee Left documented in this encounter Care Teams Child Care Attendant School Relationship Specialty Start Date End Date Lindsey Terrell MD [address] [place] [address] [place] [address] PCP - General Family Medicine 11/24/17 documented as of this encounter
--- OUTSIDE RECORDS SUMMARY | 2023-05-16 12:59 | External Medical Summary | Summary of Care ---
Author Name Unknown Organization [facility] Address [address] [place] [address] Phone [phone] Care Team Providers Care Thermostat Repairer Name Role Phone Lindsey Terrell MD Primary Care Prov ider Reason for Visit * Reason Comments Follow Up Bilateral knee #3 ge lsyn injections Encounter Details Date Type Department Care Team (Late st Contact Info) Description 02/26/2023 1:00 PM EST Office Visit Orthopaedics [address] [phone] [facility]ir [facility] [address] [facility] [address] Chronic pain of both knees* Allergies Active Allergy Reactions Criticality Noted Date Comments Liraglutide Nausea/vomiting 06/01/2018 documented as of this encounter (statuses as of 02/26/2023) Medications Medication Sig Dispensed Refills Start Date End Date Status aspirin enteric coated 81 MG TBECIndications:Co ronary artery disease involving [place] coronary artery of [place] heart without angina pectoris Take 1 Tablet [...] Oral Tablet (Lopressor)Indicat ions:Coronary artery disease involving [place] coronary artery of [place] heart without angina pectoris Take 1 Tablet [...] Oral Tablet (Lipitor)Indicatio ns:Coronary artery disease involving [place] coronary artery of [place] heart without angina pectoris,Dyslipide dieter, goal LDL [...] 228 lb Coronary artery disease 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 Generalized OA 01/10/2013 ADVANCE [...] BMI 30.0-30.9,adult 12/13/19 16 Coronary atherosclerosis of [place] coronary artery 11/15/2014 Osteoarthritis of knees, bilateral 12/25/2016 documented as of this encounter (statuses as of 02/26/2023) Immunizations Name Administration Dates Next Due COVID-19 mRNA, LNP-s, No Pre serve, 2-Dose Series (Moderna) 05/25/2020,04/27/2020 COVID-19, LNP-s, No Preserve , Don-sucrose, Ages 12+ ([employer]) 10/15/2021 COVID-19, MRNA-LNP, 23-24, P F, 30 [...] Thomas MD Primary Care Sports Medicine Orthopaedics [address] [address] documented in this encounter Nursing Notes * Yamilka Christy, RN - 02/26/2023 1:13 PM EST F/U 3rd injection B/L knee gelysn. Denies pain today.Thursday's pain was off the chart. Yamilka Christy RN documented in this encounter Plan of Treatment Upcoming Encounters Date Type Department Care Team (Late st Contact Info) Description 04/09/2023 1:00 PM EST Office Visit Orthopaedics [address] [phone] Aamir Thomas MD [address] [place] [address] 05/06/2023 3:00 PM EDT Office Visit Dermatology [address] [place] [address] Ghazala Ramon PA-C [address] [place] [address] [place] [address] 07/07/2023 1:30 PM EDT Office Visit Nephrology [address] [place] [address] Allison Rivera PA-C [address] [facility] [address] 08/12/2023 1:40 PM EDT Office Visit Family Medicine [address] [place] [phone] Lindsey Terrell MD [address] [place] [address] [place] [address] 10/08/2023 10:00 AM EDT Nurse Only Ancillary [address] [place] [address] [place], Nurse Annual Wellness [address] [place] [address] [place] [address] Health Maintenance Due Date Last Done Comments Hepatitis B (1 of 3 - Risk 3-dose series) 1996 Diabetic Foot Exam 04/15/2023 04/15/2022, 0 04/12/2021, 03/07/2020, Additional history exists CKD HGB USE SMARTSET 08506 07/09/202307/08, 09/17/2021, 08/06/2020, Additional history exists CKD PHOS USE SMARTSET 88432 07/09/202306/23, 09/17/2021, 08/06/2020, Additional history exists Diabetic [...] Left documented in this encounter Care Teams Thermostat Repairer Relationship Specialty Start Date End Date Erasmo Mobley, Lindsey Jordyn, MD [address] [place] [address] [place] [phone] PCP - General Family Medicine 11/24/17 documented as of this encounter
--- OUTSIDE RECORDS SUMMARY | 2023-05-16 12:59 | External Medical Summary | Summary of Care ---
Author Name Unknown Organization [facility] Address [address] [place] [address] Phone [phone] Care Team Providers Care Telephone Coin Box Collector Name Role Phone Lindsey Terrell MD Primary Care Prov ider Reason for Visit * Reason Comments Follow Up B/L knee pain 1 st i njection B/L knee gelysn Last B/L knee injection 10/07/2022 steroid last injection Gelsyn B/L knees 08/07/2022 Encounter Details Date Type Department Care Team (Latest Contact Info) Description 02/12/2023 1:00 PM EST Office Visit Orthopaedics [address] [phone] Aamir Thomas MD [address] [place] [address] Primary osteoarthritis of both knees* Allergies Active Allergy Reactions Criticality Noted Date Comments Liraglutide Nausea/vomiting 06/01/2018 documented as of this encounter (statuses as of 02/12/2023) Medications Medication Sig Dispensed Refills Start Date End Date Status aspirin enteric coated 81 MG TBECIndications:Co ronary artery disease involving [place] coronary artery of [place] heart without angina pectoris Take 1 Tablet [...] Oral Tablet (Lopressor)Indicat ions:Coronary artery disease involving [place] coronary artery of [place] heart without angina pectoris Take 1 Tablet [...] Oral Tablet (Lipitor)Indicatio ns:Coronary artery disease involving [place] coronary artery of [place] heart without angina pectoris,Dyslipide dieter, goal LDL [...] both knees 16.8 mg IX ONCE 02/12/2023 02/12/2023 Ended sodium hyaluronate (Gelsyn-3) 16.8 MG/2ML inj 16.8 mgIndications:Primary osteoarthritis of both knees 16.8 mg IX ONCE 02/12/2023 02/12/2023 Ended documented as of this encounter (statuses [...] 228 lb Coronary artery disease 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 artery without angina pectoris 11/15/2014 Overview: [...] BMI 30.0-30.9,adult 12/13/19 16 Coronary atherosclerosis of [place] coronary artery 11/15/2014 Osteoarthritis of knees, bilateral [...] - 02/12/2023 1:14 PM EST Aquilino Rashid [id number] Aquilino Rashid is a 86 year old male who presents for f/u to [facility] Orthopa[facility]ics [facility] Medicine for bilateral [...] and also injection 3-4 years ago at [facility] Last A1C was 09/17/2021 6.7 Patient denies [...] kidney disease) stage 3, GFR 30-59 ml/min ([facility]) 01/09/14 GFR 52.1 Coronary atherosclerosis of [place] coronary artery DM type 2 causing CKD stage 3 ([facility]) DM type 2, goal A1c [...] Thomas MD Primary Care Sports Medicine Orthopaedics [address] [address] documented in this encounter Nursing Notes * [...] 02/19/2023 1:00 PM EST Office Visit Orthopaedics [address] [place] [phone] Aamir Thomas MD [address] [place] [address] 02/26/2023 1:00 PM EST Office Visit Orthopaedics [address] [place] [phone] Aamir Thomas MD [address] [place] [address] 05/06/2023 3:00 PM EDT Office Visit Dermatology [address] [place] [address] Ghazala Ramon PA-C [address] [place] [address] [place] [address] 07/07/2023 1:30 PM EDT Office Visit Nephrology [address] [place] [address] ZeAllison ramírez PA-C [address] [place] [address] 08/12/2023 1:40 PM EDT Office Visit Family Medicine [address] [place] [phone] Lindsey Terrell MD [address] [place] [address] [place] [address] 10/08/2023 10:00 AM EDT Nurse Only Ancillary [address] [place] [address] [place], Nurse [address] [place] [address] Health Maintenance Due Date Last Done Comments Hepatitis B (1 of 3 - Risk 3-dose series) 1996 Diabetic Foot Exam 04/15/2023 04/15/2022, 0 04/12/2021, 03/07/2020, Additional history exists CKD HGB USE SMARTSET 55391 07/09/202307/08, 09/17/2021, 08/06/2020, Additional history exists CKD PHOS USE SMARTSET 20137 07/09/202306/23, 09/17/2021, 08/06/2020, Additional history exists Diabetic [...] mg 16.8 mg, Intra-Articular, ONCE, On Ashley 02/12/23 at 1400, For 1 dose Given 02/12/2023 3:40 PM EST 16.8 mg K nee Right sodium hyaluronate (Gelsyn-3) 16.8 MG/2ML inj 16.8 mg 16.8 mg, Intra-Articular, ONCE, On Ashley 02/12/23 at 1400, For 1 dose Given 02/12/2023 3:39 PM EST 16.8 mg K nee Left documented in this encounter Care Teams Telephone Coin Box Collector Relationship Specialty Start Date End Date Lindsey Terrell MD [address] [place] [address] [place] [address] PCP - General Family Medicine 11/24/17 documented as of this encounter
--- OUTSIDE RECORDS SUMMARY | 2023-05-16 12:59 | External Medical Summary | Summary of Care ---
Author Name Unknown Organization [facility] Address [address] [facility] [place] [address] Phone [phone] Care Team Providers Care [employer] Supervisor Name Role Phone Lindsey Terrell MD Primary Care Prov ider Reason for Visit * Reason Onset Date Comments Follow Up 03/10/2023 Follow up with c all on 03/13 Encounter Details Date Type Department Care Team (Late st Contact Info) Description 03/10/2023 Telephone Ancillary [address] [place] [address] Lindsey Terrell MD [address] [place] [address] [place] [address] Follow Up (Follow up with call on 03/13) Allergies Active Allergy Reactions Criticality Noted Date Comments Liraglutide Nausea/vomiting 06/01/2018 documented as of this encounter (statuses as of 03/18/2023) Medications Medication Sig Dispensed Refills Start Date End Date Status aspirin enteric coated 81 MG TBECIndications:Co ronary artery disease involving elem coronary artery of elem heart without angina pectoris Take 1 Tablet [...] Oral Tablet (Lopressor)Indicat ions:Coronary artery disease involving elem coronary artery of elem heart without angina pectoris Take 1 Tablet [...] Oral Tablet (Lipitor)Indicatio ns:Coronary artery disease involving elem coronary artery of elem heart without angina pectoris,Dyslipide dieter, goal LDL below 100 Take 1 Tablet by mouth daily. 100 Tablet 1 12/22/2022 Active documented as of this encounter (statuses as of 03/18/2023) Active Problems Problem Noted Date Diagnosed Date [...] 228 lb Coronary artery disease invo lving elem coronary artery without angina pectoris 11/15/2014 Overview: [...] as of this encounter (statuses as of 03/18/2023) Resolved Problems Problem Noted Date Diagnosed Date [...] BMI 30.0-30.9,adult 12/13/19 16 Coronary atherosclerosis of elem coronary artery 11/15/2014 Osteoarthritis of knees, bilateral 12/25/2016 documented as of this encounter (statuses as of 03/18/2023) Immunizations Name Administration Dates Next Due COVID-19 mRNA, LNP-s, No Pre serve, 2-Dose Series (Moderna) 05/25/2020,04/27/2020 COVID-19, LNP-s, No Preserve , Don-sucrose, Ages 12+ (Pfizer) 10/15/2021 COVID-19, MRNA-LNP, 23-24, P F, 30 MCG/0.3 mL, 12 YRS AND ABOVE, IM (PFIZER-Comirnat) 01/28/2023 COVID-19, mRNA, LNP-s, PF, B ooster, [...] encounter Miscellaneous Notes * Telephone Encounter - Iram Valdez RN - 03/16/2023 3:24 PM EST I did get transferred to [phone] and they were able to see that patient and his alex have $35 dollars each on their OTC card, card is a pre pain debit card from [employer]. Patient will try to use it again and call if still having problems * Telephone Encounter - Iram Valdez RN - 03/16/2023 2:21 PM EST Left message for the patient to call the office. * Telephone Encounter - Iram Valdez RN - 03/10/2023 1:45 PM EST Patient called back states he is having problems with his OTC card. Patient given the balance # to call to see what the balance is [phone] and then call the customer Care Team at [phone] Patient to call me if he still has problems, I will call him in a few days to see if they could help him. Reason for Call: Follow Up Contact: Telephone Call Contact Type: Follow-up Outcome: see above Face to face time spent with Patient (minutes): 0 Total Time including non face to face (minutes): 10 * Telephone Encounter - Iram Valdez RN - 03/10/2023 1:04 PM EST Left message for the patient to call the office. * Telephone Encounter - Iram Valdez RN - 03/10/2023 1:03 PM EST Patient left a VM for me to call him back. documented in this encounter Plan of Treatment Upcoming Encounters Date Type Department Care Team (Late st Contact Info) Description 04/09/2023 1:00 PM EST Office Visit Orthopaedics [address] [phone] Aamir Thomas MD [address] [facility] [place] [address] 05/06/2023 3:00 PM EDT Office Visit Dermatology [address] [place] [address] Ghazala Ramon PA-C [address] [place] [address] [place] [address] 07/07/2023 1:30 PM EDT Office Visit Nephrology [address] [place] [address] Allison Rivera PA-C [address] [place] [address] 08/12/2023 1:40 PM EDT Office Visit Family Medicine [address] [place] [phone] Lindsey Terrell MD [address] [place] [address] [place] [address] 10/08/2023 10:00 AM EDT Nurse Only Ancillary [address] [place] [address] Shawnaalley, Nurse Annual [address] [place] [address] Health Maintenance Due Date Last Done Comments Hepatitis B (1 of 3 - Risk 3-dose series) 1996 Diabetic Foot Exam 04/15/2023 04/15/2022, 0 04/12/2021, 03/07/2020, Additional history exists CKD HGB USE SMARTSET 89325 07/09/202307/08, 09/17/2021, 08/06/2020, Additional history exists CKD PHOS USE SMARTSET 06144 07/09/202306/23, 09/17/2021, 08/06/2020, Additional history exists Diabetic [...] filedocumented as of this encounter Care Teams [employer] Ground Crew Supervisor Relationship Specialty Start Date End Date Lindsey Terrell MD [address] [place] [address] [place] [phone] PCP - General Family Medicine 11/24/17 documented as of this encounter
--- OUTSIDE RECORDS SUMMARY | 2023-05-16 13:00 | External Medical Summary | Summary of Care ---
Author Name Unknown Organization [facility] Address [address] [place] [facility] [place] [place] [address] Phone [phone] Care Team Providers Care Story Editor Name Role Phone Lindsey Terrell MD Primary Care Prov ider Reason for Visit * Reason Comments Pain Encounter Details Date Type Department Care Team Description 11/20/2022 Telemedicine Orthopaedics [address] [phone] Aamir Thomas MD [address] [place] [address] Primary osteoarthritis of left knee*; Primary osteoarthritis of right knee Allergies Active Allergy Reactions Severity Noted Date Comments Liraglutide Nausea/vomiting 06/01/2018 documented as of this encounter (statuses as of 11/20/2022) Medications Medication Sig Dispensed Refills Start Date End Date Status aspirin enteric coated 81 MG TBECIndications:Cor onary artery disease involving [place] coronary artery of [place] heart without angina pectoris Take 1 Tablet by mouth in the morning. 100 Tab 3 01/05/2018 Active Caltrate 600+D Plus Minerals 600-800 MG-UNIT Oral Tablet Chewable Take 1 Tab by mouth daily. 0 Active Furosemide 20 MG Oral Tablet (Lasix)Indications: Type 2 diabetes mellitus with stage 3 chronic kidney disease, without long-term current use of insulin (HCC) TAKE 1 TABLET BY MOUTH DAILY 90 Tablet 3 02/21/2022 Active Meclizine HCl 25 MG Oral Tablet (Antivert)Indicatio ns:Benign paroxysmal positional vertigo due to bilateral vestibular disorder Take 1 Tablet by mouth 3 times a day as needed for Dizziness. 30 Tablet 1 07/10/2022 Active Atorvastatin Calcium 40 MG Oral Tablet (Lipitor)Indication s:Coronary artery disease involving [place] coronary artery of [place] heart without angina pectoris,Dyslipidem ia, goal LDL below 100 Take 1 Tablet by mouth in the morning. 90 Tablet 1 09/16/2022 Active Metoprolol Tartrate 25 MG Oral Tablet (Lopressor)Indicati ons:Coronary artery disease involving [place] coronary artery of [place] heart without angina pectoris Take 1 Tablet by mouth daily. 90 Tablet 1 09/16/2022 Active Finasteride 5 MG Oral Tablet (Proscar) Take 1 Tablet by mouth in the morning. 90 Tablet 1 09/16/2022 Active Lisinopril 5 MG Oral Tablet (Prinivil) Take 1 Tablet by mouth in the morning. 90 Tablet 3 10/21/2022 Active Vitamin D3 25 MCG (1000 UT) Oral Tablet (Vitamin D3) Take 1 Tablet by mouth in the morning. 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 04/16), basal cell carcinoma (L infraorbital region 04/17) Type 2 diabetes mellitus wit h stage 3b chronic kidney disease, without long-term current use of insulin 04/12/2021 Chronic kidney disease, stage 3b 021 Overview: Per CKD protocol Aortic valve sclerosis 01/05/2018 Overview: Moderate on echo 2018 History of adenomatous polyp of colon Overview: On colonoscopy 2007 Localized edema 01/05/2018 Primary osteoarthritis of both knees 03/2016 BMI 34.0-34.9,adult 06/19/2016 Overview: 228 lb Coronary artery disease invo lving [place] coronary artery without angina pectoris 11/15/2014 Overview: H/o [place] medically managed 1997. Generalized OA 01/10/2013 ADVANCE DIRECTIVE INFORMATION 05/10/2010 Overview: No, Advance Directive brochure given to patient. Dyslipidemia, goal LDL below 100 009 Overview: Per Lipid Taxonomy. Type 2 diabetes mellitus with hemoglobin A1c goal of less than 7.0% 12/21/2008 Overview: Per Diabetes Taxonomy. ICD-10 update of inactive term BPH without obstruction/lower urinary tr act symptoms 12/11/2005 documented as of this encounter (statuses as of 11/20/2022) Resolved Problems Problem Noted Date Resolved Date Type 2 diabetes mellitus wit h stage 3b chronic kidney disease, without long-term current use of insulin 09/06/202009/23 Type 2 diabetes mellitus wit h stage 3b chronic kidney disease 07/03/2020 04/02/2022 Overview: Per CKD protocol Diabetes mellitus with stage 3 chronic kidney di sease 01/02/2020 07/05/2020 Overview: Per CKD protocol DM type 2 causing CKD stage 3 02/24/2019 Overview: Per CKD protocol BMI 32.0-32.9,adult 12/13/2015 06/19/2016 Overview: 215 lbs CKD (chronic kidney disease) stage 3, GFR 30-59 ml/min 01/09/2014 06/05/2017 Overview: GFR 52.1 DM type 2 causing renal disease 12/21/2008 05/01/2009 Overview: Per Diabetes Taxonomy. Nephritis and nephropathy, n ot specified as acute or chronic, with other specified pathological lesion in kidney, in diseases classified elsewhere 06/21/2007 10/18/2015 Benign neoplasm of colon 11/23/2006 017 Overview: adenomatous polyp--repeat 5 years DIAB RENAL MANIF ADULT 12/11/2005 9 Overview: Per Diabetes Taxonomy. Coronary artery disease without angina pectoris 11/15/2014 Type 2 diabetes mellitus wit h hemoglobin A1c goal of less than 7.0% 12/21/2008 Overview: Per Diabetes Taxonomy. ICD-10 update of inactive term Dyslipidemia, goal to be determined 01/30/2009 Overview: Per Lipid Taxonomy. Chronic ischemic heart disease 1 03/18/2013 BMI 30.0-30.9,adult 12/13/2015 Coronary atherosclerosis of [place] coronary ivana ry 11/15/2014 Osteoarthritis of knees, bilateral 12/25/2016 documented as of this encounter (statuses as of 11/20/2022) Immunizations Name Administration Dates Next Due COVID-19 mRNA, LNP-s, No Pre serve, 2-Dose Series (Moderna) 05/25/2020,04/27/2020 COVID-19, LNP-s, No Preserve , Don-sucrose, Ages 12+ (Pfizer) 10/15/2021 COVID-19, mRNA, LNP-s, PF, B ooster, 100mcg/0.5mg (Moderna) 02/12/2021 Covid-19, Mrna, Lnp-s, Pf, B ivalent, 30 Mcg, IM, 12 yrs and above (Pfizer) 04/17/2022 Pneumococcal Conjugate Vacc, 13 Valent (Prevnar) 07/18/2014 Pneumococcal Polysaccharide PPV23 (Pneumovax) 09/01/2018 Seasonal Influenza, PF, 6 mo ns & Above, IM , (Flulaval) 12/25/2019,11/19/2017,12/25/2016 Seasonal Influenza, Quadriva lent Hd (Fluzone Hd) 02/05/2022,01/24/2021 Seasonal Influenza, Quadriva lent, No Preserve, IM [...] drink = 0.6 oz pur e alcohol) Food Insecurity Answer Date Recorded Within the past 12 months, y ou worried that your food would run out before you got money to buy more. Never true 10/06/2022 Within the past 12 months, t he food you bought just didn't last and you didn't have money to get more. Never true 10/06/2022 Sex Assigned at Date Recorded Male 09/13/2020 11:04 AM EDT Job Start Date Occupation Industry Not on file Not on file Not on file documented as of this encounter Progress Notes * Aamir Thomas MD - 11/20/2022 8:57 AM EDT Aquilino Rashid [id number] Aquilino Nigel Rashid is a 86 year old male who presents for f/u to [facility] for bilateral knee injury/pain. I saw him initially for this on 05/15/2022 Most recent full issue for this was on 10/07/2022 Telephone visit done today rather than in office visit. Aquilino Rashid is here unaccompanied Quality: reviewed and agree with Nursing Notes for HPI elements History: History on 05/15/2022 - New patient B/L knee pain x 5 years patient deneis any pain except with activity Nerve block above the knee and also injection 3-4 years ago at [place] Last A1C was 09/17/2021 6.7 Patient denies [...] 10/07/2022: Presents today for BL steroid injections Since that visit: Reports improvement but not resolution of pain. ROS: ROS per HPI otherwise non-contributory Past Medical History: Diagnosis Date Benign neoplasm of colon 11/23/06 adenomatous polyp--repeat 5 years BMI 32.0-32.9,adult 12/13/15 215 lbs BMI 34.0-34.9,adult 06/19/2016 228 lb CKD (chronic kidney disease) stage 3, GFR 30-59 ml/min ([facility]) 01/09/14 GFR 52.1 Coronary atherosclerosis of [place] coronary artery DM type 2 causing CKD [...] file Tobacco Use Smoking status: Former Years: 1.00 Types: Cigarettes Quit date: 02/24/1960 Years since quittin.7 Smokeless tobacco: Never Vaping Use Vaping Use: [...] on file Food Insecurity: No Food Insecurity Worried About Running Out of Food in the Last Year: Never true Ran Out of Food in the Last Year: Never true Transportation Needs: Not on file Physical Activity: Not on file Stress: Not on file Social Connections: Not on file Intimate Partner Violence: Not on file Housing Stability: Not on file Radiology (I have personally reviewed the following [...] Intra-articular Right knee steroid injection performed 06/05/2022 Bilateral viscosupplementation with gelsyn completed 08/07/2022 helped significantly initially but benefit is started to wear. Discuss this may be more to the fact that the steroid injections would no longer be working. repeat intra-articular steroid injection bilaterally, which were repeated 10/07/2022 improvement but not resolution of pain. Would like to be scheduled to repeat viscosupplementation series when next eligible. Note: Patient is a diabetic Last A1C was 07/08/2022 7.5 After connecting to the patient via telephone, the patient was identified by name and date of . Patient was then informed that this was a telephone call only visit. The patient agreed to participate. Visit Disposition: Routine follow-up Total call duration was 5 minutes. Aamir Thomas MD Primary Care Sports Medicine Orthopaedics [address] [phone] documented in this encounter Plan of Treatment Upcoming Encounters Date Type Specialty Care Team Description 01/28/2023 Office Visit Family Medicine Lindsey Terrell, MD [address] [place] [address] [place] [address] 02/04/2023 Office Visit Dermatology Ghazala Ramon PA-C [address] [place] [address] [place] [address] 05/06/2023 Office Visit Dermatology Ghaazla Ramon PA-C [address] [place] [address] [place] [address] 06/22/2023 [facility] [address] 10/08/2023 Nurse Only Ancillary [place], Nurse Annual Wellness [address] [place] [address] [place] [address] Health Maintenance Due Date Last Done Comments Influenza Vaccine (FLU shot) (#1) 2022 02/05/2022, 01/24/2021, 12/25/2019, Additional history exists HbA1c 01/08/2023 07/08/2022, 08/24, 11/20/2020, Additional history exists Diabetic Foot Exam 04/15/2023 04/15/2022, 0 04/12/2021, 03/07/2020, Additional history exists CKD HGB USE SMARTSET 91334 07/09/202307/08, 09/17/2021, 08/06/2020, Additional history exists CKD PHOS USE SMARTSET 19585 07/09/202306/23, 09/17/2021, 08/06/2020, Additional history exists DIABETES-EYE EXAM 07/26/2023 07/25/2022, , 11/26/2020, Additional history exists Depression Screening 10/07/2023 10/06/2022 Albumin/Creatinine Ratio 10/22/2023 023, 09/17/2021, 08/06/2020, Additional history exists DTaP,Tdap,and Td Vaccines (2 - Td or Tdap) 03/07/2030 03/07/2020 (Declined), 02/23/1999 COLONOSCOPY-EVERY 5 YRS AGES 18-100 Discontinued 12/09/2011, 12/09/2011, 11/23/2006 Pneumococcal Vaccine: 65+ Years Completed 09/01/2018, 07/18/2014, 04/25/2002 COVID-19 Vaccine Completed 04/17/2022, , 02/12/2021, Additional history exists GARDASIL-HPV IMMUNIZATION SERIES Aged [...] encounter Visit Diagnoses Diagnosis Primary osteoarthritis of left knee- Primary Primary localized osteoarthrosis, lower leg Primary osteoarthritis of right knee Primary localized osteoarthrosis, lower leg documented in this encounter Care Teams Story Editor Relationship Specialty Start Date End Date Lindsey Terrell MD [address] [place] [address] [place] [address] PCP - General Family Medicine 11/24/17 documented as of this encounter
--- OUTSIDE RECORDS SUMMARY | 2023-05-16 13:00 | External Medical Summary | Summary of Care ---
Author Name Unknown Organization [facility] Address [address] [place] [address] Phone [phone] Care Team Providers Care Route Sales Representative Name Role Phone Lindsey Terrell MD Primary Care Prov ider Reason for Visit * Reason Onset Date Comments Advice 01/08/2023 Looking for part [facility] dentist. Encounter Details Date Type Department Care Team (Late st Contact Info) Description 01/08/2023 Telephone Family Medicine [address] [phone] Lindsey Terrell MD [address] [place] [address] [place] [address] Advice (Looking for participating dentist. ) Allergies Active Allergy Reactions Criticality Noted Date Comments Liraglutide Nausea/vomiting 06/01/2018 documented as of this encounter (statuses as of 01/13/2023) Medications Medication Sig Dispensed Refills Start Date End Date Status aspirin enteric coated 81 MG TBECIndications:Co ronary artery disease involving [place] coronary artery of [place] heart without angina pectoris Take 1 Tablet [...] for Dizziness. 30 Tablet 1 07/10/2022 Active Metoprolol Tartrate 25 MG Oral Tablet (Lopressor)Indicat ions:Coronary artery disease involving [place] coronary artery of [place] heart without angina pectoris Take 1 Tablet by mouth daily. 90 Tablet 1 09/16/2022 Active Lisinopril 5 MG Oral Tablet (Prinivil) Take 1 Tablet by mouth in the morning. 90 Tablet 3 10/21/2022 Active Vitamin D3 25 MCG (1000 UT) Oral Tablet (Vitamin D3) Take 1 Tablet by mouth in the morning. 0 10/21/2022 Active Additional Information Patient not taking.Reported on 11/05/2022 Atorvastatin Calcium 40 MG Oral Tablet (Lipitor)Indicatio ns:Coronary artery disease involving [place] coronary artery of [place] heart without angina pectoris,Dyslipide dieter, goal LDL below 100 Take 1 Tablet by mouth daily. 100 Tablet 1 12/22/2022 Active Finasteride 5 MG Oral Tablet (Proscar) Take 1 Tablet by mouth in the morning. 100 Tablet 1 12/22/2022 Active documented as of this encounter (statuses as of 01/13/2023) Active Problems Problem Noted Date Diagnosed Date Old myocardial infarct 07/10/2022 Iron deficiency [...] 228 lb Coronary artery disease invo lving [place] coronary artery without angina pectoris 11/15/2014 Overview: H/o [place] medically managed 1997. Generalized OA 01/10/2013 ADVANCE [...] as of this encounter (statuses as of 01/13/2023) Resolved Problems Problem Noted Date Diagnosed Date [...] BMI 30.0-30.9,adult 12/13/19 16 Coronary atherosclerosis of [place] coronary artery 11/15/2014 Osteoarthritis of knees, bilateral 12/25/2016 documented as of this encounter (statuses as of 01/13/2023) Immunizations Name Administration Dates Next Due COVID-19 [...] Telephone Encounter - Iram Valdez RN - 01/13/2023 11:33 AM EST I called patient he did get scheduled in [place] but not until 07/16. Patient given a few # of Dentist in [place] to call and see if they pull teeth or where they refer patient to . FAP: KARTHIK MODI ([id number]) @ [facility] ([id number]), [address] [place] [phone], FAP: ROSCOE ROSARIO ([id number]) @ [facility] ([id number]), [address] [place] [address], Patient will call them and if any other concerns will let me know. He has 2 teeth on the top that need pulled and then fitted for dentures. * Telephone Encounter - Iram Valdez RN - 01/08/2023 1:56 PM EST Patient called looking for [facility] dentist #. Patient given. Dentist participating with [facility] For updated information please call [phone] [facility] (Yolanda Perez) [address] [place] [address] Perez, but now is being referred to someone else to pull the teeth. I spoke to [facility] and they will send me a list of providers. Patient also to call the 800 number. Reason for Call: Advice Contact: Telephone Call Contact Type: Care Coordination Outcome: see note Face to face time spent with Patient (minutes): 0 Total Time including non face to face (minutes): 20 documented in this encounter Plan of Treatment Upcoming Encounters Date Type Department Care Team (Late st Contact Info) Description 01/28/2023 8:00 AM EST Office Visit Family Medicine [address] [phone] Lindsey Terrell MD [address] [place] [address] [place] [address] 02/04/2023 2:40 PM EST Office Visit Dermatology [address] [place] [address] Ghazala Ramon PA-C [address] [place] [address] [place] [address] 02/12/2023 1:00 PM EST Office Visit Orthopaedics [address] [place] [address] Aamir Thomas MD [address] [place] [address] 02/19/2023 1:00 PM EST Office Visit Orthopaedics [address] [phone] Aamir Thomas MD [address] [place] [address] 02/26/2023 1:00 PM EST Office Visit Orthopaedics [address] [place] [phone] Aamir Thomas MD [address] [place] [address] 05/06/2023 3:00 PM EDT Office Visit Dermatology [address] [place] [address] TristenGhazala hernández PAMiriC [address] [place] [address] [place] [address] 07/07/2023 1:30 PM EDT Office Visit Nephrology [address] [place] [address] ZemaitisAllison PA-C [address] [facility] [address] 10/08/2023 10:00 AM EDT Nurse Only Ancillary [address] [place] [address] [place], Nurse Annual Wellness [address] [place] [address] [place] [address] Health Maintenance Due Date Last Done Comments Hepatitis B (1 of 3 - Risk 3-dose series) 1996 COVID-19 Vaccine ( season) 2022 04/17/2022, 10/15/2021, 02/12/2021, Additional history exists Influenza Vaccine (FLU shot) (#1) 2022 02/05/2022, 01/24/2021, 12/25/2019, Additional history exists HbA1c 01/08/2023 07/08/2022, 08/24, 11/20/2020, Additional history exists Diabetic Foot Exam 04/15/2023 04/15/2022, 0 04/12/2021, 03/07/2020, Additional history exists CKD HGB USE SMARTSET 01998 07/09/202307/08, 09/17/2021, 08/06/2020, Additional history exists CKD PHOS USE SMARTSET 40294 07/09/202306/23, 09/17/2021, 08/06/2020, Additional history exists Diabetic Eye Exam 07/26/2023 07/25/2022, , 11/26/2020, Additional history exists Depression Screening 10/07/2023 10/06/2022 Albumin/Creatinine Ratio 10/22/2023 023, 09/17/2021, 08/06/2020, Additional history exists DTaP,Tdap,and Td Vaccines (2 - Td or Tdap) 03/07/2030 03/07/2020 (Declined), 02/23/1999 COLONOSCOPY-EVERY 5 YRS AGES 18-100 Discontinued 12/09/2011, 12/09/2011, 11/23/2006 Pneumococcal Vaccine: 65+ Years Completed 09/01/2018, 07/18/2014, 04/25/2002 GARDASIL-HPV IMMUNIZATION SERIES Aged Out No longer eligible based on patient's age to complete this topic MENINGOCOCCAL (MENACTRA/MENVEO) Aged Out No longer eligible based on patient's age to complete this topic Zoster Vaccines Discontinued documented as of this encounter Medical Devices Not on filedocumented as of this encounter Care Teams Route Sales Representative Relationship Specialty Start Date End Date Lindsey Terrell MD [address] [place] [address] [place] [address] PCP - General Family Medicine 11/24/17 documented as of this encounter
--- OUTSIDE RECORDS SUMMARY | 2023-05-16 13:00 | External Medical Summary | Summary of Care ---
Author Name Unknown Organization [facility] Address [address] [place] [address] Phone [phone] Care Team Providers Care All Purpose Clerk Name Role Phone Lindsey Terrell MD Primary Care Prov ider Reason for Visit * Reason Comments Follow Up B/L knee pain Encounter Details Date Type Department Care Team Description 10/07/2022 Office Visit Orthopaedics [address] [phone] Aamir Thomas MD [address] [place] [address] Primary osteoarthritis of left knee*; Primary osteoarthritis of right knee Allergies Active Allergy Reactions Severity Noted Date Comments Liraglutide Nausea/vomiting 06/01/2018 documented as of this encounter (statuses as of 11/20/2022) Medications Medication Sig Dispensed Refills Start Date End Date Status aspirin enteric coated 81 MG TBECIndications:C oronary artery disease involving chickahominy indian tribe coronary artery of chickahominy indian tribe heart without angina pectoris Take 1 Tablet by mouth in the morning. 100 Tab 3 01/05/2018 Active Caltrate 600+D Plus Minerals 600-800 MG-UNIT Oral Tablet Chewable Take 1 Tab by mouth daily. 0 Active Furosemide 20 MG Oral Tablet (Lasix)Indication s:Type 2 diabetes mellitus with stage 3 chronic kidney disease, without long-term current use of insulin (HCC) TAKE 1 TABLET BY MOUTH DAILY 90 Tablet 3 02/21/2022 Active Meclizine HCl 25 MG Oral Tablet (Antivert)Indicat ions:Benign paroxysmal positional vertigo due to bilateral vestibular disorder Take 1 Tablet by mouth 3 times a day as needed for Dizziness. 30 Tablet 1 07/10/2022 Active Atorvastatin Calcium 40 MG Oral Tablet (Lipitor)Indicati ons:Coronary artery disease involving chickahominy indian tribe coronary artery of chickahominy indian tribe heart without angina pectoris,Dyslipid emia, goal LDL below 100 Take 1 Tablet by mouth in the morning. 90 Tablet 1 09/16/2022 Active Metoprolol Tartrate 25 MG Oral Tablet (Lopressor)Indica tions:Coronary artery disease involving chickahominy indian tribe coronary artery of chickahominy indian tribe heart without angina pectoris Take 1 Tablet by mouth daily. 90 Tablet 1 09/16/2022 Active Finasteride 5 MG Oral Tablet (Proscar) Take 1 Tablet by mouth in the morning. 90 Tablet 1 09/16/2022 Active Lisinopril 5 MG Oral Tablet (Prinivil) TAKE 1 TABLET BY MOUTH DAILY 90 Tablet 3 12/27/2021 10/21/2022 Discontinued( Refill) Hospital, Clinic, or Other Facility Administered Medication Ordered Dose Route Frequency Start Date End Date Status Triamcinolone Acetonide (Kenalog) 40 MG/ML inj 40 mgIndications:Primary osteoarthritis of left knee 40 mg IX ONCE 10/07/2022 10/08/19 23 Ended Triamcinolone Acetonide (Kenalog) 40 MG/ML inj 40 mgIndications:Primary osteoarthritis of right knee 40 mg IM ONCE 10/07/2022 10/07/2022 Ended lidocaine 1 % inj 10 mgIndications:Primary osteoarthritis of left knee 10 mg IX ONCE 10/07/2022 10/08/19 23 Ended lidocaine 1 % inj 10 mgIndications:Primary osteoarthritis of right knee 10 mg IX ONCE 10/07/2022 10/07/2022 Ended documented as of this encounter (statuses [...] 2017 History of adenomatous polyp of colon Overview: On colonoscopy 2006 Localized edema 01/05/2018 Primary osteoarthritis of both knees 03/2016 BMI 34.0-34.9,adult 06/19/2016 Overview: 228 lb Coronary artery disease invo lving chickahominy indian tribe coronary artery without angina pectoris 11/15/2014 Overview: H/o [place] medically managed 1997. Generalized OA 01/10/2013 ADVANCE [...] 03/18/2013 BMI 30.0-30.9,adult 12/13/2015 Coronary atherosclerosis of chickahominy indian tribe coronary ivana ry 11/15/2014 Osteoarthritis of knees, [...] 30 Mcg, IM, 12 yrs and above (Socrata) 04/17/2022 Pneumococcal Conjugate Vacc, 13 Valent (Prevnar) 07/18/2014 Pneumococcal Polysaccharide PPV23 (Pneumovax) 09/01/2018,04/25/2002 Seasonal Influenza, PF, 6 mo ns & [...] Progress Notes * Aamir Thomas MD - 10/07/2022 12:54 PM EDT Aquilino Rashid [id number] Aquilino Rashid is a 86 year old male who presents for f/u to [facility] for bilateral knee injury/pain. I saw him initially for this on 05/15/2022 Most recent full issue for this was on 09/11/2022 was a telephone encounter Aquilino Rashid is here unaccompanied Quality: reviewed and agree with Nursing Notes for HPI elements History: History on 05/15/2022 - New patient B/L knee pain x 5 years patient deneis any pain except with activity Nerve block above the knee and also injection 3-4 years ago at [place] Last A1C was 09/17/2021 6.7 Patient denies any PT or injury or bracing or surgery Additional history 06/05/2022: reports benefit but not resolution of pain in the left knee. 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 ([facility]) DM type 2, goal A1c below [...] Types: Cigarettes Quit date: 02/24/1960 Years since quittin.6 Smokeless tobacco: Never Vaping Use Vaping Use: [...] Stability: Not on file Physical Exam Constitutional: Generally well-nourished and in no acute distress Psychiatric: Mood and Affect normal Eyes: EOMI Respiratory: Normal respiratory effort with regular rate and rhythm Cardiovascular: No edema in the affected extremity(s) Knee Exam, Bilateral No effusion, no erythema Radiology (I have personally reviewed [...] intra-articular steroid injection bilaterally, which were repeated today 10/07/2022 Note: Patient is a diabetic Last A1C was 07/08/2022 7.5 Telephone f/u 3-6 weeks Procedure note (knee injection), bilateral: Time out: Prior to injection, a time out was called to confirm the administration of appropriate medicine, patient name, procedure and confirm to the best of our ability and knowledge the presence of any necessary risks and benefits. Patient verbalizes understanding. Sterile techinique applied. Skin sterilized with alcohol swab. Knee injected using 1.5 inch, 22 gauge needle. Injected with Injected with 1 ml lidocaine 1%, triamcinolone acetonide 40mg/ml 1 ml. Patient tolerated procedure with no significant bleeding or adverse reaction. Patient instructed to call or return to clinic for fever or warmth and redness at injection site for potential infection. Patient also advised as to potential for steroid flare reaction including increased pain and redness at injection site which should be treated with ice and resolve within 24 hours. Aamir Thomas MD Primary Care Sports Medicine Orthopaedics [address] [phone] documented in this encounter Nursing Notes * Ladan Flor LPN - 10/07/2022 12:57 PM EDT F/U B/L knee pain last injection Gelsyn B/L knees 08/07/2022 (8 weeks out ) worked some last Intra-articular Left knee steroid injection performed 05/15/2022 Right knee steriod injection 06/05/2022 last A1C 07/08/2022 7.5 documented in this encounter Plan of Treatment Upcoming Encounters Date Type Specialty Care Team Description 11/20/2022 Telemedicine Orthopedics Aamir Thomas MD [address] [place] [address] 01/28/2023 Office Visit Family Medicine Lindsey Terrell MD [address] [place] [address] [place] [phone] 02/04/2023 Office Visit Dermatology Ghazala Ramon PA-C [address] [place] [address] [place] [address] 05/06/2023 Office Visit Dermatology Ghazala Ramon PA-C [address] [place] [address] [place] [address] 06/22/2023 Office Visit [facility]phrology Allison Rivera [facility]C [facility] [address] 10/08/2023 Nurse Only Ancillary [place], Nurse Annual Wellness [address] [place] [address] [place] [address] Health Maintenance Due Date Last Done Comments Influenza Vaccine (FLU shot) (#1) 2022 02/05/2022, 01/24/2021, 12/25/2019, Additional history exists HbA1c 01/08/2023 07/08/2022, 08/24, 11/20/2020, Additional history exists Diabetic Foot Exam 04/15/2023 04/15/2022, 0 04/12/2021, 03/07/2020, Additional history exists CKD HGB USE SMARTSET 65892 07/09/202307/08, 09/17/2021, 08/06/2020, Additional history exists CKD PHOS USE SMARTSET 47081 07/09/202306/23, 09/17/2021, 08/06/2020, Additional history exists DIABETES-EYE [...] lidocaine 1 % inj 10 mg 10 mg, Intra-Articular, ONCE, On Thu10/07/22 at 1345, For 1 dose Given 10/07/2022 1:57 PM EDT 10 mg Knee Right lidocaine 1 % inj 10 mg 10 mg, Intra-Articular, ONCE, On Thu10/07/22 at 1345, For 1 dose Given 10/07/2022 1:57 PM EDT 10 mg Knee Left Triamcinolone Acetonide (Kenalog) 40 MG/ML inj 40 mg 40 mg, Intra-Articular, ONCE, On Thu10/07/22 at 1345, For 1 dose Given 10/07/2022 1:58 PM EDT 40 mg Knee Right Triamcinolone Acetonide (Kenalog) 40 MG/ML inj 40 mg 40 mg, Intramuscular, ONCE, On Thu10/07/22 at 1345, For 1 dose Given 10/07/2022 1:58 PM EDT 40 mg Knee Left documented in this encounter Care Teams All Purpose Clerk Relationship Specialty Start Date End Date Lindsey Terrell MD [address] [place] [address] [place] [address] PCP - General Family Medicine 11/24/17 documented as of this encounter
--- OUTSIDE RECORDS SUMMARY | 2023-05-16 13:00 | External Medical Summary | Summary of Care ---
Author Name Unknown Organization [facility] Address [address] [place] [address] Phone [phone] Care Team Providers Care Automotive Fleet Supervisor Name Role Phone Lindsey Sims MD Primary Care Prov ider Reason for Visit * Reason Onset Date Comments Medication Refill 12/22/2022 Encounter Details Date Type Department Care Team (Late st Contact Info) Description 12/22/2022 Refill Family Medicine [address] [phone] Lindsey Sims MD [address] [place] [address] Coronary artery disease involving mohegan coronary artery of mohegan heart without angina pectoris; Dyslipidemia, goal LDL below 100 Allergies Active Allergy Reactions Criticality Noted Date Comments Liraglutide Nausea/vomiting 06/01/2018 documented as of this encounter (statuses as of 12/22/2022) Medications Medication Sig Dispensed Refills Start Date End Date Status aspirin enteric coated 81 MG TBECIndications: Coronary artery disease involving mohegan coronary artery of mohegan heart without angina pectoris Take 1 Tablet [...] Active Metoprolol Tartrate 25 MG Oral Tablet (Lopressor)Indic ations:Coronary artery disease involving mohegan coronary artery of mohegan heart without angina pectoris Take 1 Tablet [...] 11/05/2022 Atorvastatin Calcium 40 MG Oral Tablet (Lipitor)Indicat ions:Coronary artery disease involving mohegan coronary artery of mohegan heart without angina pectoris,Dyslipi demia, goal LDL below 100 Take 1 Tablet by mouth in the morning. 100 Tablet 1 12/22/2022 Active Finasteride 5 MG Oral Tablet (Proscar) Take 1 Tablet by mouth in the morning. 100 Tablet 1 12/22/2022 Active Atorvastatin Calcium 40 MG Oral Tablet (Lipitor)Indicat ions:Coronary artery disease involving mohegan coronary artery of mohegan heart without angina pectoris,Dyslipi demia, goal LDL below 100 Take 1 Tablet by mouth in the morning. 90 Tablet 1 09/16/2022 3 Discontinue d(Refill) Finasteride 5 MG Oral Tablet (Proscar) Take 1 Tablet by mouth in the morning. 90 Tablet 1 09/16/2022 3 Discontinue d(Refill) documented as of this encounter (statuses as of 12/22/2022) Active Problems Problem Noted Date Diagnosed Date [...] 228 lb Coronary artery disease invo lving mohegan coronary artery without angina pectoris 11/15/2014 Overview: [...] as of this encounter (statuses as of 12/22/2022) Resolved Problems Problem Noted Date Diagnosed Date [...] BMI 30.0-30.9,adult 12/13/19 16 Coronary atherosclerosis of mohegan coronary artery 11/15/2014 Osteoarthritis of knees, bilateral 12/25/2016 documented as of this encounter (statuses as of 12/22/2022) Immunizations Name Administration Dates Next Due COVID-19 mRNA, LNP-s, No Pre serve, 2-Dose Series (Moderna) 05/25/2020,04/27/2020 COVID-19, LNP-s, No Preserve , Don-sucrose, Ages 12+ (Pfizer) 10/15/2021 COVID-19, mRNA, LNP-s, PF, B ooster, 100mcg/0.5mg (Moderna) 02/12/2021 Covid-19, Mrna, Lnp-s, Pf, B ivalent, 30 Mcg, IM, 12 yrs and above (Peppercoin) 04/17/2022 Pneumococcal Conjugate Vacc, 13 Valent (Prevnar) [...] encounter Miscellaneous Notes * Telephone Encounter - Lindsey Sims MD - 12/22/2022 3:21 PM EDT Signed Prescriptions: Disp Refills Atorvastatin Calcium 40 MG Oral Tablet (Li*100 Ta*1 Sig: Take 1 Tablet by mouth in the morning. Authorizing Provider: DARLYN KIM, LINDSEY ROHAN Finasteride 5 MG Oral Tablet (Proscar) 100 Ta*1 Sig: Take 1 Tablet by mouth in the morning. Authorizing Provider: LINDSEY SIMS * Telephone Encounter - Cleo Ruiz RN - 12/22/2022 1:49 PM EDTPending Prescriptions: Disp Refills Atorvastatin Calcium 40 MG Oral Tablet (Li*100 Ta*1 Sig: Take 1 Tablet by mouth in the morning. Finasteride 5 MG Oral Tablet (Proscar) 100 Ta*1 Sig: Take 1 Tablet by mouth in the morning. * Telephone Encounter - Bhavna Simmons - 12/22/2022 11:17 AM EDT Did you pend patient's preferred pharmacy and medication before forwarding?yes Pharmacy: [facility] Pending Prescriptions: Disp Refills Atorvastatin Calcium 40 MG Oral Tablet (L*90 Tab*1 Sig: Take 1 Tablet by mouth in the morning. Finasteride 5 MG Oral Tablet (Proscar) 90 Tab*1 Sig: Take 1 Tablet by mouth in the morning. Last Visit: 07/10/2022 (in office), Visit date not found (telemedicine) Next Visit: 01/28/2023 If no future appointments scheduled, and last appointment is greater than a year ago, please schedule patient for a follow-up appointment Last date the medication was ordered: 09.16.22 Is this request for a controlled substance?No Urine Drug Screen:No results found for this or any previous visit. Patient Phone Numbers Labs: Lab Results Component Value Date/Time CREAT 1.4 (H) 07/08/2022 10:12 AM CREAT 1.6 (H) 12/06/2019 10:12 AM POTASSIUM 4.3 07/08/2022 10:12 AM POTASSIUM 4.9 12/06/2019 10:12 AM TSH 0.679 05/15/2018 12:00 AM TSH 3.75 04/06/2018 10:58 AM LDLCALC 48 09/17/2021 01:37 PM LDLCALC 57 01/24/2019 11:09 AM LDLDIRECT NOT APPLICABLE 01/24/2019 11:09 AM LDLDIRECT 71 10/01/2010 08:59 AM ALT 13 09/17/2021 01:37 PM ALT 17 12/06/2019 10:10 AM HGBA1C 7.5 (H) 07/08/2022 10:12 AM HGBA1C 6.4 (H) 01/09/2020 11:03 AM documented in this encounter Plan of Treatment Upcoming Encounters Date Type Department Care Team (Late st Contact Info) Description 01/28/2023 8:00 AM EST Office Visit Family Medicine [address] [phone] Lindsey Sims MD [address] [place] [address] [place] [address] 02/04/2023 2:40 PM EST Office Visit Dermatology [address] [place] [address] Ghazala Ramon PA-C [address] [place] [address] [place] [address] 02/12/2023 1:00 PM EST Office Visit Orthopaedics [address] [place] [phone] Aamir Thomas MD [address] [place] [address] 02/19/2023 1:00 PM EST Office Visit Orthopaedics [address] [phone] Aamir Thomas MD [address] [place] [address] 02/26/2023 1:00 PM EST Office Visit Orthopaedics [address] [phone] Aamir Thomas MD [address] [place] [address] 05/06/2023 3:00 PM EDT Office Visit Dermatology [address] [place] [address] Ghazala Ramon PA-C [address] [place] [address] [place] [address] 07/07/2023 1:30 PM EDT Office Visit Nephrology [address] [place] [address] ZemaitisAllison PA-C [address] [facility] [place] [address] 10/08/2023 10:00 AM EDT Nurse Only Ancillary [address] [place] [address] [place], Nurse Annual [address] [place] [address] Health Maintenance Due Date Last Done Comments Hepatitis B (1 of 3 - Risk 3-dose series) 1996 COVID-19 Vaccine ( season) 2022 04/17/2022, 10/15/2021, 02/12/2021, Additional history exists Influenza Vaccine (FLU shot) (#1) 2022 02/05/2022, 01/24/2021, 12/25/2019, Additional history exists HbA1c 01/08/2023 07/08/2022, 0707/2021, 11/20/2020, Additional history exists Diabetic Foot Exam 04/15/2023 04/15/2022, 0 04/12/2021, 03/07/2020, Additional history exists CKD HGB USE SMARTSET 87858 07/09/202307/08, 09/17/2021, 08/06/2020, Additional history exists CKD PHOS USE SMARTSET 80206 07/09/202306/23, 09/17/2021, 08/06/2020, Additional history exists Diabetic [...] Visit Diagnoses Diagnosis Coronary artery disease involving mohegan coronary artery of mohegan heart without angina pectoris Dyslipidemia, goal LDL below 100 Other and unspecified hyperlipidemia documented in this encounter Care Teams Automotive Fleet Supervisor Relationship Specialty Start Date End Date Lindsey Sims MD [address] [place] [address] [place] [address] PCP - General Family Medicine 11/24/17 documented as of this encounter
--- OUTSIDE RECORDS SUMMARY | 2023-05-16 13:00 | External Medical Summary | Summary of Care ---
Author Name Unknown Organization [facility] Address [address] [place] [address] Phone [phone] Care Team Providers Care Nut Picker Name Role Phone Lindsey Terrell MD Primary Care Prov ider Reason for Visit * Reason Onset Date Comments Medication Refill 01/20/2023 Encounter Details Date Type Department Care Team (Late st Contact Info) Description 01/20/2023 Telephone Family Medicine [address] [phone] Lindsey Terrell MD [address] [place] [address] Medication Refill Allergies Active Allergy Reactions Criticality Noted Date Comments Liraglutide Nausea/vomiting 06/01/2018 documented as of this encounter (statuses as of 01/21/2023) Medications Medication Sig Dispensed Refills Start Date End Date Status aspirin enteric coated 81 MG TBECIndications:Co ronary artery disease involving unga coronary artery of unga heart without angina pectoris Take 1 Tablet [...] Oral Tablet (Lopressor)Indicat ions:Coronary artery disease involving unga coronary artery of unga heart without angina pectoris Take 1 Tablet [...] Oral Tablet (Lipitor)Indicatio ns:Coronary artery disease involving unga coronary artery of unga heart without angina pectoris,Dyslipide dieter, goal LDL below 100 Take 1 Tablet by mouth daily. 100 Tablet 1 12/22/2022 Active Finasteride 5 MG Oral Tablet (Proscar) Take 1 Tablet by mouth in the morning. 100 Tablet 1 12/22/2022 Active documented as of this encounter (statuses as of 01/21/2023) Active Problems Problem Noted Date Diagnosed Date [...] 228 lb Coronary artery disease invo lving unga coronary artery without angina pectoris 11/15/2014 Overview: [...] as of this encounter (statuses as of 01/21/2023) Resolved Problems Problem Noted Date Diagnosed Date [...] BMI 30.0-30.9,adult 12/13/19 16 Coronary atherosclerosis of unga coronary artery 11/15/2014 Osteoarthritis of knees, bilateral 12/25/2016 documented as of this encounter (statuses as of 01/21/2023) Immunizations Name Administration Dates Next Due COVID-19 mRNA, LNP-s, No Pre serve, 2-Dose Series (Moderna) 05/25/2020,04/27/2020 COVID-19, LNP-s, No Preserve , Don-sucrose, Ages 12+ (Pfizer) 10/15/2021 COVID-19, mRNA, LNP-s, PF, B ooster, 100mcg/0.5mg (Moderna) 02/12/2021 Covid-19, Mrna, Lnp-s, Pf, B ivalent, 30 Mcg, IM, 12 yrs and above (Pfizer) 04/17/2022 Pneumococcal Conjugate Vacc, 13 Valent (Prevnar) 07/18/2014 Pneumococcal Polysaccharide PPV23 (Pneumovax) 09/01/2018,04/25/2002 SEASONAL INFLUENZA, PF, 6 M & Above, [...] encounter Miscellaneous Notes * Telephone Encounter - Cleo Ruiz RN - 01/21/2023 8:31 AM EST There are refills on this, it was just sent in September * Telephone Encounter - Janki Lundberg OSA - 01/20/2023 4:34 PM EST Aquilino needs his Lisinopril called [facility] to [facility]. documented in this encounter Plan of Treatment Upcoming Encounters Date Type Department Care Team (Late st Contact Info) Description 01/28/2023 8:00 AM EST Office Visit Family Medicine [address] [phone] Lindsey Terrell MD [address] [place] [address] [place] [address] 02/04/2023 2:40 PM EST Office Visit Dermatology [address] [place] [address] Ghazala Ramon PA-C [address] [place] [address] [place] [address] 02/12/2023 1:00 PM EST Office Visit Orthopaedics [address] [phone] Aamir Thomas MD [address] [place] [address] 02/19/2023 1:00 PM EST Office Visit Orthopaedics [address] [phone] Aamir Thomas MD [address] [place] [address] 02/26/2023 1:00 PM EST Office Visit Orthopaedics [address] [phone] Aamir Thomas MD [address] [place] [address] 05/06/2023 3:00 PM EDT Office Visit Dermatology [address] [place] [address] Ghazala Ramon PA-C [address] [place] [address] [place] [address] 07/07/2023 1:30 PM EDT Office Visit Nephrology [address] [place] [address] ZeAllison ramírez PA-C [address] [place] [address] 10/08/2023 10:00 AM EDT Nurse Only Ancillary [address] [place] [address] [place], Nurse Annual [address] [place] [address] Health Maintenance Due Date Last Done Comments Hepatitis B (1 of 3 - Risk 3-dose series) 1996 COVID-19 Vaccine (2022- season) 2022 04/17/2022, 10/15/2021, 02/12/2021, Additional history exists Influenza Vaccine (FLU shot) (#1) 2022 02/05/2022, 01/24/2021, 12/25/2019, Additional history exists HbA1c 01/08/2023 07/08/2022, 08/24, 11/20/2020, Additional history exists Diabetic Foot Exam 04/15/2023 04/15/2022, 0 04/12/2021, 03/07/2020, Additional history exists CKD HGB USE SMARTSET 13891 07/09/202307/08, 09/17/2021, 08/06/2020, Additional history exists CKD PHOS USE SMARTSET 34042 07/09/202306/23, 09/17/2021, 08/06/2020, Additional history exists Diabetic [...] filedocumented as of this encounter Care Teams Nut Picker Relationship Specialty Start Date End Date Lindsey Terrell MD [address] [place] [address] [place] [phone] PCP - General Family Medicine 11/24/17 documented as of this encounter
--- OUTSIDE RECORDS SUMMARY | 2023-05-16 13:00 | External Medical Summary | Summary of Care ---
Author Name Unknown Organization [facility] Address [address] [place] [address] Phone [phone] Care Team Providers Care Staff Interpreter Name Role Phone Lindsey Terrell MD Primary Care Prov ider Reason for Visit * Reason Onset Date Comments Medication Refill 01/20/2023 Encounter Details Date Type Department Care Team (Late st Contact Info) Description 01/20/2023 Telephone Family Medicine [address] [phone] Lindsey Terrell MD [address] [place] [id number] Medication Refill Allergies Active Allergy Reactions Criticality Noted Date Comments Liraglutide Nausea/vomiting 06/01/2018 documented as of this encounter (statuses as of 01/20/2023) Medications Medication Sig Dispensed Refills Start Date End Date Status aspirin enteric coated 81 MG TBECIndications:Co ronary artery disease involving benton coronary artery of benton heart without angina pectoris Take 1 Tablet [...] Oral Tablet (Lopressor)Indicat ions:Coronary artery disease involving benton coronary artery of benton heart without angina pectoris Take 1 Tablet [...] Oral Tablet (Lipitor)Indicatio ns:Coronary artery disease involving benton coronary artery of benton heart without angina pectoris,Dyslipide dieter, goal LDL below 100 Take 1 Tablet by mouth daily. 100 Tablet 1 12/22/2022 Active Finasteride 5 MG Oral Tablet (Proscar) Take 1 Tablet by mouth in the morning. 100 Tablet 1 12/22/2022 Active documented as of this encounter (statuses as of 01/20/2023) Active Problems Problem Noted Date Diagnosed Date [...] 228 lb Coronary artery disease invo lving benton coronary artery without angina pectoris 11/15/2014 Overview: [...] as of this encounter (statuses as of 01/20/2023) Resolved Problems Problem Noted Date Diagnosed Date [...] BMI 30.0-30.9,adult 12/13/19 16 Coronary atherosclerosis of benton coronary artery 11/15/2014 Osteoarthritis of knees, bilateral 12/25/2016 documented as of this encounter (statuses as of 01/20/2023) Immunizations Name Administration Dates Next Due COVID-19 [...] encounter Miscellaneous Notes * Telephone Encounter - Janki Lundberg OSA - 01/20/2023 4:34 PM EST Aquilino needs his Lisinopril called in to the [facility]. documented in this encounter Plan of Treatment Upcoming Encounters Date Type Department Care Team (Late st Contact Info) Description 01/28/2023 8:00 AM EST Office Visit Family Medicine [address] [place] [phone] Lindsey Terrell MD [address] [place] [address] [place] [address] 02/04/2023 2:40 PM EST Office Visit Dermatology [address] [place] [address] Ghazala Ramon PA-C [address] [place] [address] [place] [address] 02/12/2023 1:00 PM EST Office Visit Orthopaedics [address] [phone] Aamir Thomas MD [address] [place] [address] 02/19/2023 1:00 PM EST Office Visit Orthopaedics [address] [phone] Aamir Thomas MD [address] [place] [address] 02/26/2023 1:00 PM EST Office Visit Orthopaedics [address] [place] [phone] Aamir Thomas MD [address] [place] [address] 05/06/2023 3:00 PM EDT Office Visit Dermatology [address] [place] [address] Ghazala Ramon PA-C [address] [place] [address] [place] [address] 07/07/2023 1:30 PM EDT Office Visit Nephrology [address] [place] [address] ZeAllison ramírez PA-C [address] [place] [address] 10/08/2023 10:00 AM EDT Nurse Only Ancillary [address] [place] [address] Karthikeyan, Nurse [address] [place] [address] Health Maintenance Due Date Last Done Comments Hepatitis B (1 of 3 - Risk 3-dose series) 1996 COVID-19 Vaccine ( season) 2022 04/17/2022, 10/15/2021, 02/12/2021, Additional history exists Influenza Vaccine (FLU shot) (#1) 2022 02/05/2022, 01/24/2021, 12/25/2019, Additional history exists HbA1c 01/08/2023 07/08/2022, 08/24, 11/20/2020, Additional history exists Diabetic Foot Exam 04/15/2023 04/15/2022, 0 04/12/2021, 03/07/2020, Additional history exists CKD HGB USE SMARTSET 11106 07/09/202307/08, 09/17/2021, 08/06/2020, Additional history exists CKD PHOS USE SMARTSET 70579 07/09/202306/23, 09/17/2021, 08/06/2020, Additional history exists Diabetic [...] filedocumented as of this encounter Care Teams Staff Interpreter Relationship Specialty Start Date End Date Lindsey Terrell MD [address] [place] [address] [place] [address] PCP - General Family Medicine 11/24/17 documented as of this encounter
--- OUTSIDE RECORDS SUMMARY | 2023-05-16 13:00 | External Medical Summary ---
Author Name Unknown Address Unknown Organization [id number]:[facility] [place] - [address] [facility] [place] [address] Laboratory Report Ordering Provider Test Date Status DARLYN SR 01/28/2023 08:40:45 Final Observation Date Value Abnormality Reference (Units ) Status BUN 01/28/2023 08:40:45 39 Above high normal 6-20 (mg/dL) Final Creatinine 01/28/2023 08:40:45 1.6 Above high normal 0.6-1.2 (mg/dL) Final Glomerular filtration rate/1.73 sq M.predicted [Volume Rate/Area] in Serum, Plasma or Blood by Creatinine-based formula (CKD-EPI) 01/28/2023 08:40:45 41 Below low normal >=60 (mL/min) Final eGFR is calculated based on the CKD-EPI 2020 equation SODIUM 01/28/2023 08:40:45 142 135-146 (m mol/L) Final Potassium 01/28/2023 08:40:45 4.8 3.5-5.1 (m mol/L) Final Cl 01/28/2023 08:40:45 107 98-107 (mm ol/L) Final CO2 01/28/2023 08:40:45 26 22-32 (mmo l/L) Final Anion gap 01/28/2023 08:40:45 9 7-15 (mmol /L) Final Glucose 01/28/2023 08:40:45 168 Above high normal 70 -120 (mg/dL) Final Albumin 01/28/2023 08:40:45 4.3 3.8-5.0 (g /dL) Final AST (Aspartate aminotransferase) 01/28/2023 08:40:45 20 10-50 (U/L) Fin al Alk Phos 01/28/2023 08:40:45 85 35-130 (U/ L) Final Bilirubin, Total 01/28/2023 08:40:45 0.5 <=1 .2 (mg/dL) Final Calcium 01/28/2023 08:40:45 10.0 8.4-10.2 ( mg/dL) Final Protein 01/28/2023 08:40:45 6.4 6.0-8.3 (g /dL) Final ALT (Alanine aminotransferase) 01/28/2023 08:40:45 18 10-50 (U/L) Leeroy fournier Performing Location [facility] [place] - [address] [place] [facility] [place], [place] [address]
--- OUTSIDE RECORDS SUMMARY | 2023-05-16 13:00 | External Medical Summary | Summary of Care ---
Author Name Unknown Organization [facility] Address [address] [place] [address] Phone [phone] Care Team Providers Care Assembly Detailer Name Role Phone Lindsey Terrell MD Primary Care Prov ider Reason for Visit * Reason Onset Date Comments Advice 12/16/2022 Encounter Details Date Type Department Care Team (Late st Contact Info) Description 12/16/[address] [phone] Lindsey Terrell MD [address] [place] [address] Advice Allergies Active Allergy Reactions Criticality Noted Date Comments Liraglutide Nausea/vomiting 06/01/2018 documented as of this encounter (statuses as of 12/16/2022) Medications Medication Sig Dispensed Refills Start Date End Date Status aspirin enteric coated 81 MG TBECIndications:Cor onary artery disease involving tanana coronary artery of tanana heart without angina pectoris Take 1 Tablet [...] Oral Tablet (Lipitor)Indication s:Coronary artery disease involving tanana coronary artery of tanana heart without angina pectoris,Dyslipidem ia, goal LDL below 100 Take 1 Tablet by mouth in the morning. 90 Tablet 1 09/16/2022 Active Metoprolol Tartrate 25 MG Oral Tablet (Lopressor)Indicati ons:Coronary artery disease involving tanana coronary artery of tanana heart without angina pectoris Take 1 Tablet [...] as of this encounter (statuses as of 12/16/2022) Active Problems Problem Noted Date Diagnosed Date [...] 228 lb Coronary artery disease invo lving tanana coronary artery without angina pectoris 11/15/2014 Overview: [...] as of this encounter (statuses as of 12/16/2022) Resolved Problems Problem Noted Date Diagnosed Date [...] BMI 30.0-30.9,adult 12/13/19 16 Coronary atherosclerosis of tanana coronary artery 11/15/2014 Osteoarthritis of knees, bilateral 12/25/2016 documented as of this encounter (statuses as of 12/16/2022) Immunizations Name Administration Dates Next Due COVID-19 [...] Telephone Encounter - Iram Valdez RN - 12/16/2022 10:20 AM EDT Patient called requesting [facility]. Dentist participating with [facility] For updated information please call [phone] [facility] (Yolanda Perez) [address] [facility] [phone] Dr. Marie Dental office [address] [place] [address] Dr. Phillips ([place]) [address] [place] [address] Reason for Call: Advice Contact: Telephone Call Contact Type: Care Coordination Outcome: see note Face to face time spent with Patient (minutes): 0 Total Time including non face to face (minutes): 10 documented in this encounter Plan of Treatment Upcoming Encounters Date Type Department Care Team (Late st Contact Info) Description 01/28/2023 8:00 AM EST Office Visit Family Medicine [address] [phone] Lindsey Terrell MD [address] [place] [address] [place] [address] 02/04/2023 2:40 PM EST Office Visit Dermatology [address] [place] [address] Ghazala Ramon PA-C [address] [place] [address] [place] [address] 02/12/2023 1:00 PM EST Office Visit Orthopaedics [address] [phone] Aamir Thomas MD [address] [place] [address] 02/19/2023 1:00 PM EST Office Visit Orthopaedics [address] [phone] Aamir Thomas MD [address] [place] [address] 02/26/2023 1:00 PM EST Office Visit Orthopaedics [address] [phone] Aamir Thomas MD [address] [place] [address] 05/06/2023 3:00 PM EDT Office Visit Dermatology [address] [place] [address] Ghazala Ramon PA-C [address] [place] [address] [place] [address] 07/07/2023 1:30 PM EDT Office Visit Nephrology [address] [place] [address] Allison Rivera PA-C [address] [place] [address] 10/08/2023 10:00 AM EDT Nurse Only Ancillary [address] [place] [address] [place], Nurse Annual [address] [place] [address] Health Maintenance Due Date Last Done Comments Hepatitis B (1 of 3 - Risk 3-dose series) 1996 COVID-19 Vaccine ( season) 2022 04/17/2022, 10/15/2021, 02/12/2021, Additional history exists Influenza Vaccine (FLU shot) (#1) 2022 02/05/2022, 01/24/2021, 12/25/2019, Additional history exists HbA1c 01/08/2023 07/08/2022, 08/24, 11/20/2020, Additional history exists Diabetic Foot Exam 04/15/2023 04/15/2022, 0 04/12/2021, 03/07/2020, Additional history exists CKD HGB USE SMARTSET 03438 07/09/202307/08, 09/17/2021, 08/06/2020, Additional history exists CKD PHOS USE SMARTSET 25915 07/09/202306/23, 09/17/2021, 08/06/2020, Additional history exists DIABETES-EYE [...] filedocumented as of this encounter Care Teams Assembly Detailer Relationship Specialty Start Date End Date Lindsey Terrell MD [address] [place] [address] [place] [phone] PCP - General Family Medicine 11/24/17 documented as of this encounter
[2023-05-16 13:07] LABS: Renal Epithelial Cells Urine 0-5 /lpf (0-5)
--- NOTE | 2023-05-16 13:27 | Electrocardiogram Report ---
Test Reason : Blood Pressure : / mmHG Vent. Rate : 068 BPM Atrial Rate : 068 BPM P-R Int : 200 ms QRS Dur : 092 ms QT Int : 370 ms P-R-T Axes : 022 -14 000 degrees QTc Int : 393 ms Normal sinus rhythm Minimal voltage criteria for LVH, may be normal variant ( R in aVL ) Old Inferior infarct Abnormal ECG No previous ECGs available Confirmed by Jose Hamm ([id number]) on 05/16/2023 1:27:10 PM Referred By: Confirmed By:Jose Hamm
[2023-05-16] MEDS: cefTRIAXone SODIUM 2,000 MG/50 ML BAG IV STA (13:31)
[2023-05-16] MEDS ORDERED: VANCOMYCIN CONSULT ACTIVE PRN (13:57)
[2023-05-16] MEDS: SODIUM CHLORIDE 0.9% 2,100 ML IV ONE (14:19)
[2023-05-16] MEDS: MAGNESIUM SULFATE / D5W 1 GM/100 ML BAG IV STA (14:28)
--- NOTE | 2023-05-16 15:01 | History & Physical Report ---
Date of Service May 16, 2023 Assessment & Plan (1) Generalized weakness: Plan: 2/2 UTI, cont abx. PT/OT to evaluate. Lives with spouse at home and ambulates with a cane at baseline. (2) Acute UTI (urinary tract infection): Plan: Cont Rocephin pending urine culture and clinical improvement. No sepsis. No evidence of pyelo. 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 Recent A1C per outpatient records is 6.7 in Jan 2023. Will check BSG while admitted. No coverage ordered at this time. Conservative coverage recommended given his age. (4) Hypertrophy of prostate: Plan: chronic, stable. Cont finasteride per home regimen. Will add scheduled bladder scans to ensure no urinary retention in the setting of acute infection. (5) Dyslipidemia: Plan: chronic, stable per most recent labs from Jan 2023 (outpatient). Cont atorvastatin per home regimen. (6) CKD (chronic kidney disease) stage 3, GFR 30-59 ml/min: Plan: chronic, stable. Base creatinine is 1.4-1.7 and is currently 1.56. Cont to renally dose medications as needed and avoid contrast or other nephrotoxic substances as able. (7) Coronary artery disease: Plan: history of remote MS in 1997 treated with thrombolytic therapy per history. Cont current medical management. DVT proph: Lovenox Full Code Dispo- med tele. I spent a total [id number] coordinating, documenting, and providing care for this patient excluding time spent in the performance of separately billed services Margy Isidro DO [facility] Hospitalist History of Present Illness Chief Complaint: weakness Primary Care Provider: Lindsey Cedeño MD 87 yo M with diet controlled diabetes and chronic CAD and CKD STage III presents wtih weakness and generalized malaise. He reports intermittent dysuria for the past couple of weeks. Denies fevers and chills. Woke up dizzy the other day and laid in bed most of the day. Reportedly vomited a couple of times two days ago but able to have coffee and toast this morning. Denies any changes in BMs, chest pains, or SOB and no other concerning symptoms for him. Workup reveals a UTI, not septic. Started broad abx in the ER. REcord reviewed and no history of abnormal urine culture in the past. Son was at bedside and contributed to history. Allergies Allergy/AdvReac Type Severity Reaction Status Date / Time liraglutide [From Victoza] Allergy Insomnia Verified 05/16/23 12:12 Home Medications Medication Instructions Recorded Confirmed Type aspirin 81 mg tablet,delayed 81 mg PO DAILY 10/10/21 05/16/23 History release (Enteric Coated Aspirin) atorvastatin 40 mg tablet 40 mg PO DAILY 10/10/21 05/16/23 History calcium 600 mg-D3 800 unit-mag11 1 tab PO DAILY 10/10/21 05/16/23 History 50 pn-motx-yifbjs-kareem-s.borat tablet (Caltrate 600-D Plus Minerals) furosemide 20 mg tablet (Lasix) 20 mg PO DAILY 10/10/21 05/16/23 History lisinopril 5 mg tablet 5 mg PO DAILY 10/10/21 05/16/23 History metoprolol tartrate 25 mg tablet 25 mg PO DAILY 10/10/21 05/16/23 History vqvccgsahcr-gkcrmnegz-qwb C-Mn 500 1 cap PO BID 11/11/21 05/16/23 History mg-400 mg capsule (Glucosamine-Chondroitin Complex) finasteride 5 mg tablet 5 mg PO DAILY 05/16/23 05/16/23 History Past Med/Surg History Medical History Primary squamous cell carcinoma of skin Hx of sigmoidoscopy Nephritis and nephropathy Hypertrophy of prostate Benign neoplasm of colon Osteoarthritis CKD (chronic kidney disease) stage 3, GFR 30-59 ml/min BPH with obstruction/lower urinary tract symptoms Coronary artery disease Dyslipidemia Type 2 diabetes mellitus with chronic kidney disease Type 2 diabetes mellitus Myocardial infarction Hypertension Surgical History H/O umbilical hernia repair Hx of colonoscopy w/lesion removal, snare adenomatous polyp S/P cholecystectomy Family History Son Cancer colon Social History Smoking Status: Former smoker Tobacco Type: Cigarettes Second Hand Exposure: No; Do You Dip or Chew Tobacco: No; Hx Alcohol Use: No Hx Substance Use: No Preferred Language: Uzbek Communication Ability: Effective Visual Impairment: No Limitations Hearing Ability: Normal Manager Post Required: No Beliefs That Will Affect Care: None marital status: Current Living Situation: Spouse current occupational status: retired Feels Safe at Home: Yes Childhood Exposure to Second-Hand Smoke: No Diet: regular caffeine: Yes (coffee) during the past year weight has: remained stable Assistive Devices: Cane and Glasses Physical Exam Physical Exam: CONSTITUTIONAL: WNWD, vitals as above, generally well-appearing, NAD EYES: normal conjunctivae, no scleral icterus, pupils are round and qequal bilaterally. ENT: external ear and nose normal, oropharynx clear, MMM NECK: trachea midline RESPIRATORY: clear to auscultation bilaterally, no crackles, rales or wheezes, normal respiratory effort CARDIOVASCULAR: regular rate and rhythm, S1 and 2 heard without murmurs, gallops or rubs, no JVD, no peripheral edema CHEST: inspection of chest was normal GASTROINTESTINAL: soft, nontender, ND, no guarding, no CVA TTP MUSCULOSKELETAL: strength 5/5 throughout, head is normocephalic and atraumatic SKIN: warm and dry NEUROLOGIC: CN 2-12 grossly intact, no sensory deficit, normal cognition, normal speech, no tremor PSYCHIATRIC: alert cooperative and oriented to person, place and time. Euthymic mood, makes good eye contact, language grossly intact, recent and remote memory grossly intact. Results & Data Results & Data Vital Signs (Past 12 Hours) Vital Signs Temp Pulse Pulse Resp BP BP Pulse Ox 05/16/23 14:20 65 20 141/107 H 95 05/16/23 13:00 62 18 116/80 94 05/16/23 10:22 68 05/16/23 10:01 37.0 C 82 20 112/62 93 O2 Del Method 05/16/23 14:20 05/16/23 13:00 05/16/23 10:22 05/16/23 10:01 Room Air Laboratory Results Short CBC 05/16/23 Range/Units 10:24 WBC 13.79 H (4.8-10.8) K/ul Hgb 12.4 L (14.0-18.0) g/dl Hct 36.4 L (42.0-52.0) % Plt Count 137 (130-400) K/uL BMP 05/16/23 10:24 Sodium 135 L Potassium 4.3 Chloride 105 Carbon Dioxide 24 BUN 30 H Creatinine 1.56 H Glucose 194 H Calcium 10.9 H Liver Function 05/16/23 Range/Units 10:24 Total Bilirubin 0.8 (0.2-1.0) mg/dl AST 17 (13-39) U/L ALT 12 (7-52) U/L Alkaline Phosphatase 74 (34-104) U/L Albumin 3.8 (3.4-5.0) gm/dl Urine 05/16/23 Range/Units 12:32 Urine Color Yellow Urine Appearance Turbid A (Clear) Urine pH 5.0 (4.5-7.5) Ur Specific [place] 1.009 (1.000-1.030) Urine Protein 1+ H (Negative) Urine Glucose (UA) Negative (Negative) Diagnostic Findings Chest X-Ray 05/16/23 10:35 XR chest 1V portable CLINICAL HISTORY: weakness COMPARISON STUDY: PET/CT August 12, 2021. FINDINGS: Mild elevation of the right hemidiaphragm is unchanged. Upper mediasti nal widening is also similar to prior PET/CT and likely due to vessels. There is mild cardiomegaly without evidence for pulmonary edema. No consolidation is present. There is no pneumothorax or pleural effusion. IMPRESSION: No acute cardiopulmonary findings. ACT 112: Negative or not required by law. Electronically signed by: Elder Cardona M.D. 05/16/2023 10:[address] 05/16/23 11:21 CT OF THE HEAD WITHOUT CONTRAST CLINICAL HISTORY: dizziness; weakness COMPARISON STUDY: Head CT July 10, 2021. CT DOSE: 547.75 mGy.cm TECHNIQUE: Helical axial images of the head were obtained without IV contrast. Automated exposure control was utilized for the study. A dose lowering technique was utilized adhering to the principles of ALARA. FINDINGS: No acute intracranial hemorrhage, midline shift or mass effect is present. Ventricular system is unremarkable. Basal cisterns are patent. There are no extra-axial collections. White matter hypodensity suggests small vessel disease. There are no findings to suggest acute dural sinus thrombosis or acute territorial infarct. There are no significant calvarial abnormalities. IMPRESSION: No acute intracranial findings. ACT 112: Negative or not required by law. Electronically signed by: Elder Cardona M.D. 05/16/2023 12:03 PM Code Status & VTE Plan VTE Prophylaxis Plan VTE Prophylaxis will be ordered: Yes
[2023-05-16] MEDS ORDERED: ONDANSETRON INJ 2 MG/ML 2 ML VIAL IV PRN (16:10)
[2023-05-16] MEDS ORDERED: POLYETHYLENE (MIRALAX) 17 GM PACK PO PRN (16:10)
[2023-05-16] MEDS ORDERED: ACETAMINOPHEN 325 MG TAB PO PRN (16:10)
[2023-05-16] MEDS: VANCOMYCIN HCL 2,250 MG in SODIUM CHLORIDE 0.9% 500 ML IV ONE (16:16)
[2023-05-16] MEDS: ENOXAPARIN INJ 40 MG/0.4 ML SYR SQ SCH (20:08)
[2023-05-17 06:43] LABS: BUN Creatinine Ratio 17.3 (10-20); Calcium 9.5 mg/dl (8.6-10.3); Creatinine Clr Calc Pharmacy 39.7 ml/min; Est GFR (African American) 52.4 ml/min; Est GFR (Non-African American) 45.2 ml/min; Magnesium 1.7 mg/dl (1.7-2.4); Phosphorus 1.8 mg/dl (2.5-4.9); Potassium 4.1 mmol/L (3.5-5.1)
[2023-05-17 06:51] LABS: Hematocrit (blood only) 34.1 % (42.0-52.0); Hemoglobin 11.5 g/dl (14.0-18.0); Mean Corpuscular Hgb Conc 33.7 g/dL (32.0-36.0); Mean Platelet Volume 9.9 fL (9.4-12.4); Platelet Count 131 K/uL (130-400); RDW Coefficient of Variation 13.6 % (11.5-14.5); RDW Standard Deviation 44.6 fL (36.4-46.3); Red Blood Count 3.83 M/uL (4.70-6.10); White Blood Count 6.97 K/ul (4.8-10.8)
[2023-05-17] MEDS: FUROSEMIDE 20 MG TAB PO SCH (08:51)
[2023-05-17] MEDS: ASPIRIN 81 MG ECTAB PO SCH (08:51)
[2023-05-17] MEDS: ATORVASTATIN 40 MG TAB PO SCH (08:51)
[2023-05-17] MEDS: METOPROLOL TARTRATE 25 MG TAB PO SCH (08:51)
[2023-05-17] MEDS: lisinopril 5 MG TAB PO SCH (08:51)
[2023-05-17] MEDS: FINASTERIDE 5 MG TAB PO SCH (08:52)
[2023-05-17] MEDS ORDERED: SODIUM PHOSPHATE 3 MMOL/1 ML INFUSION IV ONE (08:52)
[2023-05-17] MEDS: MAGNESIUM CHLORIDE W/CALCIUM 64MG DELAYED REL TAB PO SCH (09:54)
[2023-05-17] MEDS: SODIUM PHOSPHATE 15 MMOL in SODIUM CHLORIDE 0.9% 250 ML IV ONE (09:54)
[2023-05-17] MEDS: cefTRIAXone SODIUM 2,000 MG in DEXTROSE 5 % MINI-B 50 ML IV SCH (12:55)
--- NOTE | 2023-05-17 13:33 | Hospitalist Progress Note ---
Date of Service May 17, 2023 Assessment & Plan (1) Generalized weakness: Plan: Generalized weakness Secondary to infection PT OT as able Fall precautions (2) Acute UTI (urinary tract infection): Plan: Urinary tract infection Urine culture growing E. 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, diet controlled Update HbA1c Last HbA1c 6.29 Jan 2023 No tight glycemic control given advanced age (4) Hypertrophy of prostate: Plan: chronic, stable Continue finasteride Continue bladder scan (5) Dyslipidemia: Plan: Continue atorvastatin Hypophosphatemia Hypomagnesemia Replete electrolytes as needed Monitor (6) CKD (chronic kidney disease) stage 3, GFR 30-59 ml/min: Plan: chronic, stable Base creatinine is 1.4-1.7 Avoid nephrotoxics as able Monitor renal function (7) Coronary artery disease: Plan: H/O remote PR in 1997 treated with thrombolytic therapy per history Continue aspirin, statin, lisinopril, metoprolol DVT Px: Lovenox SQ Code Status Full Code Admission and Anticipated Discharge Date Admission Date: May 16, 2023 Subjective Patient is seen and examined at bedside Sitting in chair during my encounter Dizziness, generalized weakness resolved per patient Denies any dysuria, hematuria, chest pain, dyspnea, nausea, vomiting, abdominal pain Urine culture growing E. coli Review of Systems Review of Systems: All systems reviewed & are unremarkable except as noted in Subjective Physical Exam Physical Exam: Physical Exam: Vitals signs as noted above General Appearance:Moderately built and nourished, no apparent distress, Elderly Head: normocephalic, Atraumatic Eyes: normal inspection, EOMI Neck: supple, Trachea midline Respiratory/Chest: Normal breath sounds, CTA, No accessory muscle use Cardiovascular: S1, S2, No murmur Abdomen/GI:Soft, Non tender, Bowel sounds present Extremities/Musculoskeletal:normal inspection, 1+ edema Neurologic/Psych:AAOX2, grossly no focal neurological deficits Skin: normal color, warm Results & Data Results & Data Vital Signs (Past 12 Hours) Vital Signs Temp Pulse Pulse Resp BP BP Pulse Ox 05/17/23 11:41 36.6 C 75 18 108/63 94 05/17/23 08:33 37.3 C 76 18 123/53 L 95 05/17/23 08:00 05/17/23 08:00 79 05/17/23 04:03 37.2 C 76 16 132/74 96 O2 Del Method 05/17/23 11:41 Room Air 05/17/23 08:33 Room Air 05/17/23 08:00 Room Air 05/17/23 08:00 05/17/23 04:03 Room Air Laboratory Results Short CBC 05/17/23 05/17/23 Range/Units 05:20 06:29 WBC Cancelled 6.97 Hgb Cancelled 11.5 L Hct Cancelled 34.1 L Plt Count Cancelled 131 BMP 05/17/23 05:20 Sodium 136 Potassium 4.1 Chloride 108 H Carbon Dioxide 23 BUN 24 H Creatinine 1.39 Glucose 123 H Calcium 9.5
[2023-05-18] MEDS ORDERED: GLUCOSE 40% GEL 15 GM TUBE PO PRN (01:05)
[2023-05-18] MEDS ORDERED: DEXTROSE 50% 50 ML SYRINGE IV PRN (01:05)
[2023-05-18] MEDS ORDERED: GLUCOSE 10 TAB/TUBE PO PRN (01:05)
[2023-05-18] MEDS ORDERED: CARBOHYDRATES FOR HYPOGLYCEMIA PO PRN (01:05)
[2023-05-18] MEDS ORDERED: GLUCAGON FOR INJ 1 MG VIAL SQ PRN (01:05)
[2023-05-18] MEDS: INSULIN ASPART PER UNIT CHARGE SC SCH (01:32)
[2023-05-18 07:31] LABS: Hematocrit (blood only) 35.6 % (42.0-52.0); Hemoglobin 11.7 g/dl (14.0-18.0); Mean Corpuscular Hemoglobin 29.3 pg (25.0-34.0); Mean Corpuscular Hgb Conc 32.9 g/dL (32.0-36.0); Mean Corpuscular Volume 89.2 fL (80.0-100.0); Mean Platelet Volume 9.8 fL (9.4-12.4); Platelet Count 137 K/uL (130-400); RDW Coefficient of Variation 13.5 % (11.5-14.5); RDW Standard Deviation 44.5 fL (36.4-46.3); Red Blood Count 3.99 M/uL (4.70-6.10); White Blood Count 7.72 K/ul (4.8-10.8)
[2023-05-18 07:53] LABS: Estimated Average Glucose 157 mg/dl; Hemoglobin A1C 7.1 % (4.5-5.6)
[2023-05-18 07:54] LABS: BUN Creatinine Ratio 17.4 (10-20); Calcium 9.2 mg/dl (8.6-10.3); Creatinine Clr Calc Pharmacy 37.3 ml/min; Est GFR (Non-African American) 39.7 ml/min; Magnesium 1.7 mg/dl (1.7-2.4); Phosphorus 2.1 mg/dl (2.5-4.9); Potassium 3.9 mmol/L (3.5-5.1)
[2023-05-18 11:45] VITALS: TEMP 98.2
--- NOTE | 2023-05-18 14:13 | Hospitalist Progress Note ---
Date of Service May 18, 2023 Assessment & Plan (1) Generalized weakness: Plan: Generalized weakness Secondary to infection PT OT : Recommends to return home Fall precautions Plan to discharge home today (2) Acute UTI (urinary tract infection): Plan: Urinary tract infection Urine culture growing pansensitive E. coli Blood cultures: No growth to date Continue Rocephin Day #3 Plan to discharge on p.o. 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, diet controlled Updated HbA1c 7.1 No tight glycemic control given advanced age (4) Hypertrophy of prostate: Plan: chronic, stable Continue finasteride Continue bladder scan (5) Dyslipidemia: Plan: Continue atorvastatin Hypophosphatemia Hypomagnesemia Replete electrolytes as needed Monitor (6) CKD (chronic kidney disease) stage 3, GFR 30-59 ml/min: Plan: chronic, stable Base creatinine is 1.4-1.7 Avoid nephrotoxics as able Monitor renal function (7) Coronary artery disease: Plan: H/O remote DC in 1997 treated with thrombolytic therapy per history Continue aspirin, statin, lisinopril, metoprolol DVT Px: Lovenox SQ Code Status Full Code Disposition Home Admission and Anticipated Discharge Date Admission Date: May 16, 2023 Subjective Patient is seen and examined at bedside States feeling well today Offers no new complaints Denies any dysuria, hematuria, chest pain, dyspnea, nausea, vomiting, abdominal pain Plan to discharge home today Review of Systems Review of Systems: All systems reviewed & are unremarkable except as noted in Subjective Physical Exam Physical Exam: Physical Exam: Vitals signs as noted above General Appearance:Moderately built and nourished, no apparent distress, Elderly Head: normocephalic, Atraumatic Eyes: normal inspection, EOMI Neck: supple, Trachea midline Respiratory/Chest: Normal breath sounds, CTA, No accessory muscle use Cardiovascular: S1, S2, No murmur Abdomen/GI:Soft, Non tender, Bowel sounds present Extremities/Musculoskeletal:normal inspection, 1+ edema Neurologic/Psych:AAOX2, grossly no focal neurological deficits Skin: normal color, warm Results & Data Results & Data Vital Signs (Past 12 Hours) Vital Signs Temp Pulse Resp BP BP Pulse Ox O2 Del Method 05/18/23 11:44 36.8 C 69 20 143/63 H 95 Room Air 05/18/23 09:25 Room Air 05/18/23 07:40 36.7 C 63 18 152/119 H 91 Room Air 05/18/23 03:26 37.1 C 79 16 112/61 92 Room Air Laboratory Results Short CBC 05/18/23 Range/Units 06:53 WBC 7.72 (4.8-10.8) K/ul Hgb 11.7 L (14.0-18.0) g/dl Hct 35.6 L (42.0-52.0) % Plt Count 137 (130-400) K/uL BMP 05/18/23 06:53 Sodium 138 Potassium 3.9 Chloride 108 H Carbon Dioxide 23 BUN 27 H Creatinine 1.55 H Glucose 143 H Calcium 9.2
--- NOTE | 2023-05-18 14:36 | Discharge Summary ---
Date of Service May 18, 2023 Admission HPI Per Admitting Provider 87 yo M with diet controlled diabetes and chronic CAD and CKD STage III presents wtih weakness and generalized malaise. He reports intermittent dysuria for the past couple of weeks. Denies fevers and chills. Woke up dizzy the other day and laid in bed most of the day. Reportedly vomited a couple of times two days ago but able to have coffee and toast this morning. Denies any changes in BMs, chest pains, or SOB and no other concerning symptoms for him. Workup reveals a UTI, not septic. Started broad abx in the ER. REcord reviewed and no history of abnormal urine culture in the past. Son was at bedside and contributed to history. Admission Exam Per Admitting Provider CONSTITUTIONAL: WNWD, vitals as above, generally well-appearing, NAD EYES: normal conjunctivae, no scleral icterus, pupils are round and qequal bilaterally. ENT: external ear and nose normal, oropharynx clear, MMM NECK: trachea midline RESPIRATORY: clear to auscultation bilaterally, no crackles, rales or wheezes, normal respiratory effort CARDIOVASCULAR: regular rate and rhythm, S1 and 2 heard without murmurs, gallops or rubs, no JVD, no peripheral edema CHEST: inspection of chest was normal GASTROINTESTINAL: soft, nontender, ND, no guarding, no CVA TTP MUSCULOSKELETAL: strength 5/5 throughout, head is normocephalic and atraumatic SKIN: warm and dry NEUROLOGIC: CN 2-12 grossly intact, no sensory deficit, normal cognition, normal speech, no tremor PSYCHIATRIC: alert cooperative and oriented to person, place and time. Eu thymic mood, makes good eye contact, language grossly intact, recent and remote memory grossly intact. Principal Diagnosis Urinary tract infection Electrolyte abnormality Discharge Data Allergies Allergy/AdvReac Type Severity Reaction Status Date / Time liraglutide [From Victoza] Allergy Insomnia Verified 05/16/23 12:12 Consultations 05/16/23 14:32 ED Decision to Admit Stat Procedures Performed Laboratory Results WBC 7.72 K/ul (4.8-10.8) 05/18/23 06:53 RBC 3.99 M/uL (4.70-6.10) L 05/18/23 06:53 Hgb 11.7 g/dl (14.0-18.0) L 05/18/23 06:53 Hct 35.6 % (42.0-52.0) L 05/18/23 06:53 MCV 89.2 fL (80.0-100.0) 05/18/23 06:53 MCH 29.3 pg (25.0-34.0) 05/18/23 06:53 MCHC 32.9 g/dL (32.0-36.0) 05/18/23 06:53 RDW Std Deviation 44.5 fL (36.4-46.3) 05/18/23 06:53 RDW Coeff of Aristides 13.5 % (11.5-14.5) 05/18/23 06:53 Plt Count 137 K/uL (130-400) 05/18/23 06:53 MPV 9.8 fL (9.4-12.4) 05/18/23 06:53 Immature Gran % (Auto) 0.8 % 05/16/23 10:24 Neut % (Auto) 87.3 % 05/16/23 10:24 Lymph % (Auto) 5.8 % 05/16/23 10:24 [place] % (Auto) 5.7 % 05/16/23 10:24 Eos % (Auto) 0.2 % 05/16/23 10:24 Baso % (Auto) 0.2 % 05/16/23 10:24 Neut # (Auto) 12.04 K/uL (1.40-6.50) H 05/16/23 10:24 Lymph # (Auto) 0.80 K/uL (1.20-3.40) L 05/16/23 10:24 [place] # (Auto) 0.78 K/uL (0.11-0.59) H 05/16/23 10:24 Eos # (Auto) 0.03 K/uL (0.00-0.50) 05/16/23 10:24 Baso # (Auto) 0.03 K/uL (0.00-0.20) 05/16/23 10:24 Immature Gran # (Auto) 0.11 K/uL (0.01-0.20) 05/16/23 10:24 Absolute Nucleated RBC Cancelled 05/17/23 05:20 Nucleated RBC % (auto) Cancelled 05/17/23 05:20 Platelet Estimate Cancelled 05/17/23 05:20 Sodium 138 mmol/L (136-145) 05/18/23 06:53 Potassium 3.9 mmol/L (3.5-5.1) 05/18/23 06:53 Chloride 108 mmol/L (98-107) H 05/18/23 06:53 Carbon Dioxide 23 mmol/L (21-32) 05/18/23 06:53 Anion Gap 7 (3-11) 05/18/23 06:53 BUN 27 mg/dl (6-23) H 05/18/23 06:53 Creatinine 1.55 mg/dl (0.6-1.4) H 05/18/23 06:53 Est Cr Clr Drug Dosing 37.3 ml/min 05/18/23 06:53 Est GFR ( Amer) 46.0 ml/min 05/18/23 06:53 Est GFR (Non-Af Amer) 39.7 ml/min 05/18/23 06:53 BUN/Creatinine Ratio 17.4 (10-20) 05/18/23 06:53 Glucose 143 mg/dl (70-99(Fasting)) H 05/18/23 06:53 POC Glucose 206 mg/dl (70-99) H 05/18/23 11:45 Estimat Average Glucose 157 mg/dl 05/18/23 06:53 Hemoglobin A1c 7.1 % (4.5-5.6) H 05/18/23 06:53 Lactate 1.0 mmol/L (0.4-2.0) 05/16/23 11:08 Calcium 9.2 mg/dl (8.6-10.3) 05/18/23 06:53 Phosphorus 2.1 mg/dl (2.5-4.9) L 05/18/23 06:53 Magnesium 1.7 mg/dl (1.7-2.4) 05/18/23 06:53 Total Bilirubin 0.8 mg/dl (0.2-1.0) 05/16/23 10:24 AST 17 U/L (13-39) 05/16/23 10:24 ALT 12 U/L (7-52) 05/16/23 10:24 Alkaline Phosphatase 74 U/L (34-104) 05/16/23 10:24 Troponin I High Sens 19.9 pg/ml (0-20) 05/16/23 12:17 Total Protein 6.6 gm/dl (6.0-8.3) 05/16/23 10:24 Albumin 3.8 gm/dl (3.4-5.0) 05/16/23 10:24 Globulin 2.8 gm/dl (2.5-4.0) 05/16/23 10:24 Albumin/Globulin Ratio 1.4 (0.9-2) 05/16/23 10:24 Procalcitonin 3.41 ng/ml (0-0.5) H 05/16/23 10:24 TSH 3.109 uIu/ml (0.300-4.500) 05/16/23 10:24 Urine Color Yellow 05/16/23 12:32 Urine Appearance Turbid (Clear) A 05/16/23 12:32 Urine pH 5.0 (4.5-7.5) 05/16/23 12:32 Ur Specific [place] 1.009 (1.000-1.030) 05/16/23 12:32 Urine Protein 1+ (Negative) H 05/16/23 12:32 Urine Glucose (UA) Negative (Negative) 05/16/23 12:32 Urine Ketones Negative (Negative) 05/16/23 12:32 Urine Blood 3+ (Negative) H 05/16/23 12:32 Urine Nitrite Positive (Negative) A 05/16/23 12:32 Urine Bilirubin Negative (Negative) 05/16/23 12:32 Urine Urobilinogen Negative (Negative) 05/16/23 12:32 Ur Leukocyte Esterase 3+ (Negative) H 05/16/23 12:32 Urine WBC (Auto) >30 /hpf (0-5) H 05/16/23 12:32 Urine RBC (Auto) 10-30 /hpf (0-4) H 05/16/23 12:32 U Hyaline Cast (Auto) 1-5 /lpf (0-5) 05/16/23 12:32 U Epithel Cells (Auto) 5-10 /lpf (0-5) H 05/16/23 12:32 Urine Bacteria (Auto) 3+ (Negative) H 05/16/23 12:32 Ur Renal Epithelial Cell 0-5 /lpf (0-5) 05/16/23 12:32 Urine Yeast Not Reportable 05/16/23 12:32 SARS-CoV-2 (PCR) NEGATIVE (Negative) 05/16/23 10:45 Influenza Type A (PCR) Negative (Neg) 05/16/23 10:45 Influenza Type B (PCR) Negative (Neg) 05/16/23 10:45 RSV (RT-PCR) Negative (Neg) 05/16/23 10:45 Impressions Chest X-Ray 05/16/23 10:35 XR chest 1V portable CLINICAL HISTORY: weakness COMPARISON STUDY: PET/CT August 12, 2021. FINDINGS: Mild elevation of the right hemidiaphragm is unchanged. Upper mediastinal widening is also similar to prior PET/CT and likely due to vessels. There is mild cardiomegaly without evidence for pulmonary edema. No consolidation is present. There is no pneumothorax or pleural effusion. IMPRESSION: No acute cardiopulmonary findings. ACT 112: Negative or not required by law. Electronically signed by: Elder Cardona M.D. 05/16/2023 10:[address] 05/16/23 11:21 CT OF THE HEAD WITHOUT CONTRAST CLINICAL HISTORY: dizziness; weakness COMPARISON STUDY: Head CT July 10, 2021. CT DOSE: 547.75 mGy.cm TECHNIQUE: Helical axial images of the head were obtained without IV contrast. Automated exposure control was utilized for the study. A dose lowering technique was utilized adhering to the principles of ALARA. FINDINGS: No acute intracranial hemorrhage, midline shift or mass effect is present. Ventricular system is unremarkable. Basal cisterns are patent. There are no extra-axial collections. White matter hypodensity suggests small vessel disease. There are no findings to suggest acute dural sinus thrombosis or acute territorial infarct. There are no significant calvarial abnormalities. IMPRESSION: No acute intracranial findings. ACT 112: Negative or not required by law. Electronically signed by: Elder Cardona M.D. 05/16/2023 12:03 PM Ordered Studies 05/16/23 11:21 CT head/brain wo con Stat Hospital Course (1) Generalized weakness: Generalized weakness Secondary to infection PT OT : Recommends to return home Fall precautions Plan to discharge home today (2) Acute UTI (urinary tract infection): Urinary tract infection Urine culture growing pansensitive E. coli Blood cultures: No growth to date Continue Rocephin Day #3 Plan to discharge on p.o. antibiotics to complete the course (3) Type 2 diabetes mellitus with chronic kidney disease: chronic, diet controlled Updated HbA1c 7.1 No tight glycemic control given advanced age (4) Hypertrophy of prostate: chronic, stable Continue finasteride Continue bladder scan (5) Dyslipidemia: Continue atorvastatin Hypophosphatemia Hypomagnesemia Replete electrolytes as needed Monitor (6) CKD (chronic kidney disease) stage 3, GFR 30-59 ml/min: chronic, stable Base creatinine is 1.4-1.7 Avoid nephrotoxics as able Monitor renal function (7) Coronary artery disease: H/O remote [place] in 1997 treated with thrombolytic therapy per history Continue aspirin, statin, lisinopril, metoprolol DVT Px: Lovenox SQ Code Status Full Code Disposition Home Total Time Total Time Spent Total Time Spent (In Minutes): 55 minutes Discharge Plan Discharge Items Patient Disposition: Home - Self-Care Reason For Visit: WEAKNESS, UTI Discharge Diagnosis: Urinary tract infection Electrolyte abnormality Activity: Per Instructions section Exercise/Sports: Gradually increase as tolerated Non-emergency contact: Primary Care Provider Call non-emergency contact if: you have any medication questions, your symptoms worsen, your pain is concerning for you and you have a fever Follow-up/Referrals: Lindsey Cedeño MD [Primary Care Provider] - Diet: Heart Healthy Addtl Attending Provider Instructions: Follow-up with your primary care physician Dr. Erasmo Mobley in 1 week as advised --Your final blood cultures are pending at the time of discharge. Follow-up with your physician for results. --Complete the antibiotic course--cefdinir as prescribed for 4 more days--start taking from 05/19/2023 Seek immediate medical attention if your symptoms reoccur or worsen Please take all medications as instructed on discharge list below. Please call if you have any questions or problems. You can reach a [facility] hospitalist on duty at [facility] 24 hours a day by calling [phone] Pending Studies at Discharge: Yes Studies:: Blood Culture Stand-Alone Forms: My [facility], Smoking Cessation Medications and DC Order Prescriptions: New Mag 64 64 mg Tablet,Delayed Release (Dr/Ec) 64 mg PO QAM Qty: 14 0RF Phospha 250 Neutral 250 mg Tablet 1 tab PO QID 2 Days Qty: 8 0RF cefdinir 300 mg capsule 300 mg PO BID Qty: 8 0RF Rx Instructions: start taking from 05/19/23 Continued aspirin [Enteric Coated Aspirin] 81 mg tablet,delayed release (DR/EC) 81 mg PO DAILY atorvastatin 40 mg tablet 40 mg PO DAILY Caltrate 600-D Plus Minerals 600 mg calcium- 800 unit-50 mg tablet 1 tab PO DAILY furosemide [Lasix] 20 mg tablet 20 mg PO DAILY lisinopril 5 mg tablet 5 mg PO DAILY metoprolol tartrate 25 mg tablet 25 mg PO DAILY [id number] C-Mn [Glucosamine-Chondroitin Complx] 500-400 mg capsule 1 cap PO BID finasteride 5 mg tablet 5 mg PO DAILY Discharge Orders: Discharge Order (Routine); Ordered 05/18/23 Ordered By: Panchito Melvin/Other Patient Handouts: Managing Type 2 Diabetes Admission Data Admit Date/Time: 05/16/23 14:49 Attending Provider: Panchito James Admit Provider: Margy Isidro Primary Care Provider: Lindsey Cedeño Other Providers: Margy Isidro
[2023-05-18] MEDS: POT PHOSPHATE MONOBASIC W/ SOD TAB PO SCH (14:57)
[2023-05-18 15:15] VITALS: BP 103/51; PULSE 66; RESP 18; O2SAT 96
== END 2023-05-18 16:25 | disposition home or self-care (01) | DRG 690 ==
LOC: ED 09:55 → 2N 14:49 → SUATTDRO 14:49 → 2N 16:12
DX: Z79.84 Long term (current) use of oral hypoglycemic drugs; Z88.8 Allergy status to other drugs, medicaments and biological substances; I25.2 Old myocardial infarction; Z79.82 Long term (current) use of aspirin; Z87.891 Personal history of nicotine dependence; B96.20 Unspecified Escherichia coli [E. coli] as the cause of diseases classified elsewhere; E78.5 Hyperlipidemia, unspecified; N39.0 Urinary tract infection, site not specified; I25.10 Atherosclerotic heart disease of native coronary artery without angina pectoris; E11.22 Type 2 diabetes mellitus with diabetic chronic kidney disease; N40.0 Benign prostatic hyperplasia without lower urinary tract symptoms; Z79.899 Other long term (current) drug therapy; N18.30 Chronic kidney disease, stage 3 unspecified; E87.8 Other disorders of electrolyte and fluid balance, not elsewhere classified